=== PATIENT | male | born 1970 | race Caucasian/White ===

== ENCOUNTER 2016-09-25 08:44 | Inpatient (IN) | payer OTHER ==
[2016-09-25] VITALS (10 sets, daily range): BP systolic 116–169; BP diastolic 64–113; PULSE 75–97; RESP 16–28; TEMP 97.4–99.1; O2SAT 89–98
[~2016-09-25] VITALS: Ht 182.9 cm; Wt 178.0 kg
[~2016-09-25 08:44] MED LIST: CLIN1CAP5 PO; IBUP600T26 PO
[2016-09-25] MEDS ORDERED: SODIUM CHLORIDE 0.9% FLUSH 10 ML FLUSH IVF PRN (09:15)
[2016-09-25] MEDS ORDERED: methylPREDNISolone SOD SUCC 125 MG/2 ML VIAL IVP ONE (09:15)
[2016-09-25] MEDS ORDERED: SODIUM CHLOR 0.9% 1000 ML INJ 1,000 ML IV ONE ×3 (09:15→10:15)
[2016-09-25] MEDS: RESP: ALBUTEROL 2.5 MG/IPRATROPIUM 0.5 MG NEB (SCH) INH ×3 (09:30→21:52)
[2016-09-25 09:32] LABS: AUTOMATED NEUTROPHIL # 9.4 TH/MM3 (1.8-7.7); BASOPHIL % 0.4 % (0.0-2.0); EOSINOPHIL # 0.1 TH/MM3 (0-0.4); EOSINOPHIL % 0.5 % (0.0-4.0); HEMATOCRIT 37.1 % (39.0-51.0); HEMO FLAGS DIFF FINAL; LYMPH % 5.1 % (9.0-44.0); LYMPHOCYTE # 0.5 TH/MM3 (1.0-4.8); MEAN CELL VOLUME 82.7 FL (80.0-100.0); MEAN CORPUSCULAR HEMOGLOBIN 28.5 PG (27.0-34.0); MEAN CORPUSCULAR HGB CONC 34.5 % (32.0-36.0); MONO % 4.7 % (0.0-8.0); NEUT % 89.3 % (16.0-70.0); PLATELET COUNT 236 TH/MM3 (150-450); RED BLOOD COUNT 4.48 MIL/MM3 (4.50-5.90); RED CELL DISTRIBUTION WIDTH 13.9 % (11.6-17.2); WHITE BLOOD COUNT 10.6 TH/MM3 (4.0-11.0)
--- NOTE | 2016-09-25 09:42 | PD ---
HPI Chief Complaint: Respiratory Symptoms Time Seen by Provider: 09:09 Travel History International Travel<30 days: No Contact w/Intl Traveler<30days: No Traveled to known affect area: No History of Present Illness HPI Patient is a 45-year-old with history of hypertension, who presents to emergency room with multiple complaints. 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 Patient reports that he was brought home where his mother cared for him. Patient reports that he has had decreased urine output in the past week. Reports that he has only urinated 5 times in the past week, reports that he feels jittery and is having increased muscle spasms at this time. Patient also reports that yesterday, he has had increased cough and wheezing. Patient denies any fevers or chills. Reports that he does feel short of breath with his cough and wheezing. No chest pain at this time. Patient is a three fourths packs per day smoker 20 years. PFSH Past Medical History Cardiovascular Problems: Yes (HTN ) Diminished Hearing: No Gout: Yes Hypertension: Yes Immunizations Current: No Social History Alcohol Use: No Tobacco Use: Yes Substance Use: No Allergies-Medications (Allergen,Severity, Reaction): Coded Allergies: No Known Allergies (Unverified , 10/09/15) Reported Meds & Prescriptions Reported Meds & Active Scripts Active Ibuprofen 600 Mg Tab 600 Mg PO Q8H PRN 5 Days Clindamycin Hcl (Clindamycin HCl) 150 Mg Cap 450 Mg PO Q8HR 10 Days Review of Systems General / Constitutional: No: Fever Eyes: No: Visual changes HENT: No: Headaches Cardiovascular: No: Chest Pain or Discomfort Respiratory: Positive: Cough, Shortness of Breath, Wheezing Gastrointestinal: No: Abdominal Pain Genitourinary: No: Dysuria Musculoskeletal: Positive: Myalgias, Weakness, Cramping, No: Pain Skin: No Rash Neurologic: No: Weakness Psychiatric: No: Depression Endocrine: No: Polydipsia Hematologic/Lymphatic: No: Easy Bruising Physical Exam Narrative GENERAL: Moderate distress SKIN: Focused skin assessment warm/dry. Patient with excoriations to his skin with no obvious drainage or signs of infection HEAD: Atraumatic. Normocephalic. EYES: Pupils equal and round. No scleral icterus. No injection or drainage. ENT: No nasal bleeding or discharge. Mucous membranes pink and moist. NECK: Trachea midline. No JVD. CARDIOVASCULAR: Regular rate and rhythm. No murmur appreciated. RESPIRATORY: Patient with scattered wheezing to upper and lower lobes of the lungs, patient with accessory muscle use with work of breathing. GASTROINTESTINAL: Abdomen soft, non-tender, nondistended. Hepatic and splenic margins not palpable. MUSCULOSKELETAL: No obvious deformities. No clubbing. No cyanosis. No edema. NEUROLOGICAL: Awake and alert. No obvious cranial nerve deficits. Motor grossly within normal limits. Normal speech. PSYCHIATRIC: Appropriate mood and affect; insight and judgment normal. Data Data Last Documented VS Vital Signs Date Time Temp Pulse Resp B/P Pulse Ox O2 Delivery O2 Flow Rate FiO2 09/25/16 10:16 75 16 135/75 92 Nasal Cannula 2 09/25/16 08:47 97.4 Orders Electrocardiogram (09/25/16 09:14) Arterial Blood Gas (Abg) (09/25/16 09:14) Complete Blood Count With Diff (09/25/16 09:14) Comprehensive Metabolic Panel (09/25/16 09:14) Chest, Single Ap (09/25/16 09:14) Ecg Monitoring (09/25/16 09:14) Iv Access Insert/Monitor (09/25/16 09:14) Oximetry (09/25/16 09:14) Methylprednisolone So Succ Inj (Solumedr (09/25/16 09:15) Albuterol-Ipratropium Neb (Duoneb Neb) (09/25/16 09:15) Sodium Chloride 0.9% Flush (Ns Flush) (09/25/16 09:15) Creatine Kinase (Cpk) (09/25/16 09:14) Sodium Chlor 0.9% 1000 Ml Inj (Ns 1000 M (09/25/16 09:15) Lactic Acid Sepsis Protocol (09/25/16 09:52) Blood Culture (09/25/16 09:52) Sodium Chlor 0.9% 1000 Ml Inj (Ns 1000 M (09/25/16 10:00) Sodium Chlor 0.9% 1000 Ml Inj (Ns 1000 M (09/25/16 10:15) Urinary Catheter Insert/Apply (09/25/16 10:08) CKMB (09/25/16 09:20) CKMB% (09/25/16 09:20) Urinalysis - C+S If Indicated (09/25/16 10:30) Sodium (Na) (09/25/16 10:40) Calcium Gluconate Inj (Calcium Gluconate (09/25/16 10:45) Insulin Human Regular Inj (Novolin R Inj (09/25/16 11:00) Dextrose 50% In William (Vial) Inj (D50w (Vi (09/25/16 10:45) Sodium Polysty Sulfate Liq (Kayexalate L (09/25/16 10:45) Magnesium (Mg) (09/25/16 10:45) Ct Abd/Pel W/O Iv Contrast (09/25/16 10:47) Labs Laboratory Tests Test 09/25/16 09/25/16 09/25/16 09:20 09:41 09:50 White Blood Count 10.6 TH/MM3 Red Blood Count 4.48 MIL/MM3 Hemoglobin 12.8 GM/DL Hematocrit 37.1 % Mean Corpuscular Volume 82.7 FL Mean Corpuscular Hemoglobin 28.5 PG Mean Corpuscular Hemoglobin 34.5 % Concent Red Cell Distribution Width 13.9 % Platelet Count 236 TH/MM3 Mean Platelet Volume 9.6 FL Neutrophils (%) (Auto) 89.3 % Lymphocytes (%) (Auto) 5.1 % Monocytes (%) (Auto) 4.7 % Eosinophils (%) (Auto) 0.5 % Basophils (%) (Auto) 0.4 % Neutrophils # (Auto) 9.4 TH/MM3 Lymphocytes # (Auto) 0.5 TH/MM3 Monocytes # (Auto) 0.5 TH/MM3 Eosinophils # (Auto) 0.1 TH/MM3 Basophils # (Auto) 0.0 TH/MM3 CBC Comment DIFF FINAL Differential Comment Sodium Level 115 MEQ/L Potassium Level 6.5 MEQ/L Chloride Level 80 MEQ/L Carbon Dioxide Level 14.7 MEQ/L Anion Gap 20 MEQ/L Blood Urea Nitrogen 167 MG/DL Creatinine 18.42 MG/DL Estimat Glomerular Filtration 3 ML/MIN Rate Random Glucose 110 MG/DL Calcium Level 6.0 MG/DL Protein Corrected Calcium 6.2 MG/DL Total Bilirubin 0.4 MG/DL Aspartate Amino Transf 140 U/L (AST/SGOT) Alanine Aminotransferase 202 U/L (ALT/SGPT) Alkaline Phosphatase 177 U/L Total Creatine Kinase 63982 U/L Creatine Kinase MB 31.6 NG/ML Creatine Kinase MB % 0.2 % Total Protein 6.7 GM/DL Albumin 2.6 GM/DL Blood Gas Puncture Site LT RADIAL Blood Gas Patient Temperature 98.6 Blood Gas HCO3 13 mmol/L Blood Gas Base Excess -14.3 mmol/L Blood Gas Oxygen Saturation 91 % Arterial Blood pH 7.15 Arterial Blood Partial 38 mmHg Pressure CO2 Arterial Blood Partial 81 mmHG Pressure O2 Arterial Blood Oxygen Content 16.1 Vol % Arterial Blood 2.3 % Carboxyhemoglobin Arterial Blood Methemoglobin 0.8 % Blood Gas Hemoglobin 12.6 G/DL Oxygen Delivery Device ROOM AIR Blood Gas Inspired Oxygen 21 % Lactic Acid Level 0.5 mmol/L MDM Medical Decision Making Medical Screen Exam Complete: Yes Emergency Medical Condition: Yes Interpretation(s) EKG at 930: Normal sinus rhythm at 78 bpm, QT/QTc: 411/444, no acute changes Vital Signs Date Time Temp Pulse Resp B/P Pulse Ox O2 Delivery O2 Flow Rate FiO2 09/25/16 09:08 90 Nasal Cannula 2 09/25/16 08:47 97.4 84 28 169/76 Room Air Differential Diagnosis Symptoms could be secondary to COPD exacerbation, rhabdomyolysis, pneumonia, electrolyte abnormality, viral infection Narrative Course 45-year-old male with multiple complaints, presents to emergency room with decreased urine output, cough, wheezing and shortness of breath. Patient was placed on a compliance monitor upon arrival to the emergency room. Patient with significant wheezing on exam, he is hypoxic and with a pulse ox of 90% on 2 L nasal cannula. Nebulizer treatments as well as steroids ordered. X- ray chest ordered to evaluate for possible pneumonia versus other lung pathology which can cause intense shortness of breath. Patient with increased "jitteriness" and "muscle spasms" - reports recent heat stroke 1 week ago with overall decreased urine output. Concerns for possible rhabdomyolysis versus electrolyte abnormality. Lab work including total CK ordered. Patient will be hydrated with IV fluids in the meantime. Vital Signs Date Time Temp Pulse Resp B/P Pulse Ox O2 Delivery O2 Flow Rate FiO2 09/25/16 10:16 75 16 135/75 92 Nasal Cannula 2 09/25/16 09:30 89 Room Air 09/25/16 09:08 90 Nasal Cannula 2 09/25/16 08:47 97.4 84 28 169/76 Room Air Laboratory Tests Test 09/25/16 09/25/16 09/25/16 09:20 09:41 09:50 White Blood Count 10.6 TH/MM3 (4.0-11.0) Red Blood Count 4.48 MIL/MM3 (4.50-5.90) Hemoglobin 12.8 GM/DL (13.0-17.0) Hematocrit 37.1 % (39.0-51.0) Mean Corpuscular Volume 82.7 FL (80.0-100.0) Mean Corpuscular Hemoglobin 28.5 PG (27.0-34.0) Mean Corpuscular Hemoglobin 34.5 % Concent (32.0-36.0) Red Cell Distribution Width 13.9 % (11.6-17.2) Platelet Count 236 TH/MM3 (150-450) Mean Platelet Volume 9.6 FL (7.0-11.0) Neutrophils (%) (Auto) 89.3 % (16.0-70.0) Lymphocytes (%) (Auto) 5.1 % (9.0-44.0) Monocytes (%) (Auto) 4.7 % (0.0-8.0) Eosinophils (%) (Auto) 0.5 % (0.0-4.0) Basophils (%) (Auto) 0.4 % (0.0-2.0) Neutrophils # (Auto) 9.4 TH/MM3 (1.8-7.7) Lymphocytes # (Auto) 0.5 TH/MM3 (1.0-4.8) Monocytes # (Auto) 0.5 TH/MM3 (0-0.9) Eosinophils # (Auto) 0.1 TH/MM3 (0-0.4) Basophils # (Auto) 0.0 TH/MM3 (0-0.2) CBC Comment DIFF FINAL Differential Comment Sodium Level 115 MEQ/L (136-145) Potassium Level 6.5 MEQ/L (3.5-5.1) Chloride Level 80 MEQ/L (98-107) Carbon Dioxide Level 14.7 MEQ/L (21.0-32.0) Anion Gap 20 MEQ/L (5-15) Blood Urea Nitrogen 167 MG/DL (7-18) Creatinine 18.42 MG/DL (0.60-1.30) Estimat Glomerular Filtration 3 ML/MIN (>89) Rate Random Glucose 110 MG/DL (74-106) Calcium Level 6.0 MG/DL (8.5-10.1) Protein Corrected Calcium 6.2 MG/DL (8.5-10.1) Total Bilirubin 0.4 MG/DL (0.2-1.0) Aspartate Amino Transf 140 U/L (15-37) (AST/SGOT) Alanine Aminotransferase 202 U/L (12-78) (ALT/SGPT) Alkaline Phosphatase 177 U/L (45-117) Total Creatine Kinase 86823 U/L (39-308) Creatine Kinase MB 31.6 NG/ML (0.5-3.6) Creatine Kinase MB % 0.2 % (0.0-4.0) Total Protein 6.7 GM/DL (6.4-8.2) Albumin 2.6 GM/DL (3.4-5.0) Blood Gas Puncture Site LT RADIAL Blood Gas Patient Temperature 98.6 Blood Gas HCO3 13 mmol/L (22-26) Blood Gas Base Excess -14.3 mmol/L (-2-2) Blood Gas Oxygen Saturation 91 % (90-100) Arterial Blood pH 7.15 (7.380-7.420) Arterial Blood Partial 38 mmHg (38-42) Pressure CO2 Arterial Blood Partial 81 mmHG Pressure O2 (61-120) Arterial Blood Oxygen Content 16.1 Vol % (12.0-20.0) Arterial Blood 2.3 % (0-4) Carboxyhemoglobin Arterial Blood Methemoglobin 0.8 % (0-2) Blood Gas Hemoglobin 12.6 G/DL (12.0-16.0) Oxygen Delivery Device ROOM AIR Blood Gas Inspired Oxygen 21 % Lactic Acid Level 0.5 mmol/L (0.4-2.0) Last Impressions Chest X-Ray 09/25/16 0914 Signed Impressions: Service Date/Time: Sunday, September 25, 2016 09:58 - CONCLUSION: No acute cardiopulmonary abnormality is identified. Boyd Love MD Patient with a sodium 115, BUN 167, creatinine 18.42, CK total 13,795, tranaminitis, hyperkalemia. FC ordered to measure UO. Patient was given 3 liters NS in ER. Will recheck sodium. Ct abd pelvis ordered for further evaluation of transaminitis as well as for evaluation for possible obstruction causing renal failure. Patient requires admission to the hospital Case reviewed with Dr. Spears who accepts pt to service Critical Care Narrative Aggregate critical care time was 45 minutes. Time to perform other separately billable procedures was not included in the critical care time. My time did not include minutes spent treating any other patients simultaneously or on activities that did not directly contribute to the patient's treatment. The services I provided to this patient were to treat and/or prevent clinically significant deterioration that could result in: , decompensation, deterioration I provided critical care services requiring my management, as noted below: Chart data review, documentation time, medication orders and management, vital sign assessments/reviewing monitor data, ordering and reviewing lab tests, ordering and interpreting/reviewing x-rays and diagnostic studies, care of the patient and discussion of the patient with the admitting physicians. Physician Communication Physician Communication case reviewed with Dr. Spears who accepts pt to service Diagnosis Primary Impression: Hyponatremia Additional Impressions: Renal failure Qualified Code: N17.9 - Acute renal failure, unspecified acute renal failure type Rhabdomyolysis Qualified Code: M62.82 - Non-traumatic rhabdomyolysis Hyperkalemia Hypocalcemia COPD exacerbation Admitting Information Admitting Physician Requests: Admit Myranda Lin DO Sep 25, 2016 09:42
[2016-09-25 09:51] LABS: BLOOD GAS BASE EXCESS -14.3 mmol/L (-2-2); BLOOD GAS CARBOXYHEMOGLOBIN 2.3 % (0-4); BLOOD GAS HCO3 13 mmol/L (22-26); BLOOD GAS METHEMOGLOBIN 0.8 % (0-2); BLOOD GAS O2 HGB SATURATION 91 % (90-100); BLOOD GAS OXYGEN CONTENT 16.1 Vol % (12.0-20.0); BLOOD GAS PCO2 38 mmHg (38-42); BLOOD GAS PO2 81 mmHG (61-120); BLOOD GAS TOTAL HGB 12.6 G/DL (12.0-16.0); CRITICAL VALUE YES; TEMP CORR TO 98.6
[2016-09-25 09:52] LABS: DRAW SITE LT RADIAL; FIO2 21 %; NUMBER OF ARTERIAL PUNCTURES 2; OXYGEN DEVICE ROOM AIR; STAT YES
[2016-09-25 09:57] LABS: BICARBONATE 14.7 MEQ/L (21.0-32.0); POTASSIUM 6.5 MEQ/L (3.5-5.1)
[2016-09-25 10:10] LABS: TOTAL BILIRUBIN ADULT 0.4 MG/DL (0.2-1.0)
[2016-09-25 10:15] LABS: CALCIUM-PROTEIN CORRECTED 6.2 MG/DL (8.5-10.1)
[2016-09-25 10:32] LABS: CKMB 31.6 NG/ML (0.5-3.6)
--- NOTE | 2016-09-25 10:32 | RADRPT ---
EXAM DATE/TIME: 09/25/2016 09:58 [facility] COMPARISON: No previous studies available for comparison. INDICATIONS : Very short of breath, wheezing, smoker, no chest surgery MEDICAL HISTORY : None. SURGICAL HISTORY : None. ENCOUNTER: Initial ACUITY: 1 day PAIN SCORE: Non-responsive. LOCATION: Bilateral chest FINDINGS: 2 portable AP views of the chest demonstrate a normal-sized cardiac silhouette. No effusion, consolid ation, or pneumothorax is visualized. Lungs are mildly underinflated. EKG lines overlie the patient. The bones and soft tissues demonstrate no acute abnormality. CONCLUSION: No acute cardiopulmonary abnormality is identified. Boyd Love MD on September 25, 2016 at 10:29 Board Certified Radiologist. This report was verified electronically.
[2016-09-25] MEDS ORDERED: DEXTROSE 50% IN WATER 50 ML VIAL(D50) IV PUSH ONE (10:45)
[2016-09-25] MEDS ORDERED: SODIUM POLYSTYRENE SULFONATE SUSP 15 GM/60 ML CUP PO ONE (10:45)
[2016-09-25] MEDS ORDERED: CALCIUM GLUCONATE 10% 1 GM/10 ML VIAL SLOW IVP ONE (10:45)
[2016-09-25] MEDS ORDERED: INSULIN HUMAN REGULAR 1,000 UNITS/10 ML VIAL IV PUSH ONE (11:00)
[2016-09-25 11:12] LABS: BACTERIA, URINE RARE /hpf; BLOOD, URINE MOD (NEG); COMMENT (UR) CATH-CULTURE IND; CULTURE IF INDICATED CATH CULTURE IND; GLUCOSE,URINE TRACE mg/dL (NEG); KETONE, URINE NEG (NEG); NITRITE,URINE NEG (NEG); URINE COLOR YELLOW (YELLW/STRAW)
[2016-09-25] MEDS ORDERED: BISACODYL 10 MG SUPP RECTAL PRN (11:15)
[2016-09-25] MEDS ORDERED: ONDANSETRON HCL 4 MG/2 ML VIAL IV PRN ×2 (11:15→15:15)
[2016-09-25] MEDS ORDERED: CHLORHEXIDINE GLUCONATE 2 % 1 PACK (2 CLOTHS) TOP PRN (11:15)
[2016-09-25] MEDS ORDERED: MISCELLANEOUS NURSING INFORMATION XX SCH (11:15)
[2016-09-25] MEDS ORDERED: MAGNESIUM HYDROXIDE SUSP 30 ML CUP PO PRN (11:15)
[2016-09-25] MEDS ORDERED: SENNOSIDES 8.6 MG TAB PO PRN (11:15)
[2016-09-25] MEDS ORDERED: LACTULOSE SYRUP 20 GM/30 ML CUP PO PRN (11:15)
[2016-09-25] MEDS ORDERED: DEXTROSE 50% IN WATER 50 ML VIAL(D50) IV PRN ×2 (11:30→16:00)
[2016-09-25] MEDS ORDERED: GLUCAGON 1 MG/ML VIAL OTHER PRN ×2 (11:30→16:00)
[2016-09-25] MEDS: SODIUM BICARBONATE 8.4% INJ 150 MEQ in DEXTROSE 5% IN WATE 1000ML INJ 850 ML IV SCH ×4 (12:00→19:21)
[2016-09-25] MEDS: RESP: ALBUTEROL 2.5 MG/IPRATROPIUM 0.5 MG NEB (PRN) INH ×2 (12:49→13:58)
[2016-09-25] MEDS ORDERED: HYDR-3535 PO (13:21)
[2016-09-25] MEDS ORDERED: SOMA350T PO (13:21)
[2016-09-25 13:38] LABS: BICARBONATE 14.5 MEQ/L (21.0-32.0)
[2016-09-25 14:08] LABS: POTASSIUM 6.6 MEQ/L (3.5-5.1)
[2016-09-25] MEDS ORDERED: CALCIUM CHLORIDE 10% SOLN 1 GRAM/10 ML SYR ONE ×2 (14:15→14:19)
[2016-09-25] MEDS ORDERED: DEXTROSE 50% IN WATER 50 ML SYRINGE ONE (14:15)
[2016-09-25] MEDS ORDERED: SODIUM BICARBONATE 8.4% INJ 50 MEQ/50 ML SYR ONE ×3 (14:17→16:00)
[2016-09-25 14:28] LABS: BLOOD GAS CARBOXYHEMOGLOBIN 1.6 % (0-4); BLOOD GAS HCO3 11 mmol/L (22-26); BLOOD GAS METHEMOGLOBIN 1.5 % (0-2); BLOOD GAS O2 HGB SATURATION 92 % (90-100); BLOOD GAS OXYGEN CONTENT 16.1 Vol % (12.0-20.0); BLOOD GAS PCO2 37 mmHg (38-42); BLOOD GAS PO2 94 mmHg (61-120); BLOOD GAS TOTAL HGB 12.4 G/DL (12.0-16.0); CRITICAL VALUE YES; OXYGEN DEVICE NASAL CANNULA; TEMP CORR TO 98.6
[2016-09-25 14:29] LABS: DRAW SITE LT RADIAL; LITER FLOW 4 L/M; NUMBER OF ARTERIAL PUNCTURES 2; STAT YES; ULNAR PULSE PRESENT
[2016-09-25 14:33] LABS: CALCIUM-PROTEIN CORRECTED 6.3 MG/DL (8.5-10.1)
--- NOTE | 2016-09-25 14:50 | PD.CONS ---
HPI Service Nephrology Consult Requested By Dr. Spears Reason for Consult Acute renal failure and metabolic acidosis and hyperkalemia I was notified around 1425 while making rounds in ICU by Dr. 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 Review of Systems Constitutional: COMPLAINS OF: Fatigue Respiratory: COMPLAINS OF: Wheezing Cardiovascular: COMPLAINS OF: Lower Extremity Edema Genitourinary: COMPLAINS OF: Urinary frequency Musculoskeletal: COMPLAINS OF: Joint pain Integumentary: COMPLAINS OF: Pruritus, Rash Neurologic: COMPLAINS OF: Abnormal gait, Tremor Psychiatric: COMPLAINS OF: Anxiety, Confusion Past Family Social History Allergies: Coded Allergies: No Known Allergies (Unverified , 10/09/15) Past Medical History Serial obesity Gout Hypertension history of marijuana use Reported Medications Reported Meds & Active Scripts Active Reported Soma (Carisoprodol) 350 Mg Tab 350 Mg PO HS Lortab (Hydrocodone-Acetaminophen) 10-325 Mg Tab 1 Tab PO BID Active Ordered Medications Current Medications Medications (Trade) Dose Ordered Sig/Harjinder Route Start Time Stop Time Status Last Admin Sodium Chloride 2 ml 2 ml UNSCH PRN IVF 09/25/16 09:15 Sodium Bicarbonate 150 meq/Dextrose 1,000 ml @ 75 mls/hr [id number] IV 09/25/16 10:45 09/25/16 12:00 (1/2 NS 1000 ml Inj) 1,000 ml @ 150 mls/hr [id number] IV 09/25/16 10:45 (Tylenol) 650 mg Q6H PRN PO 09/25/16 11:15 (Protonix Inj) 40 mg DAILY IV 09/26/16 09:00 (Zofran Inj) 4 mg Q6H PRN IV 09/25/16 11:15 (Heparin Inj) 5,000 units Q12H SQ 09/25/16 12:00 Miscellaneous Information 1 [id number] XX 09/25/16 11:15 (Chlorhexidine 2% Cloth) 3 pack Taper DAILY@04 TOP 09/26/16 04:00 09/22/17 03:59 (Chlorhexidine 2% Cloth) 3 pack UNSCH PRN TOP 09/25/16 11:15 (Linda-Colace) 1 tab BID PO 09/25/16 21:00 (Milk Of Magnesia Liq) 30 ml Q12H PRN PO 09/25/16 11:15 (Senokot) 17.2 mg Q12H PRN PO 09/25/16 11:15 (Dulcolax Supp) 10 mg DAILY PRN RECTAL 09/25/16 11:15 (Lactulose Liq) 30 ml DAILY PRN PO 09/25/16 11:15 (D50w (Vial) Inj) 50 ml UNSCH PRN IV 09/25/16 11:30 (Glucagon Inj) 1 mg UNSCH PRN OTHER 09/25/16 11:30 Family History Noncontributory Social History He smoke three fourths of a pack a day for more than 20 years denies alcohol abuse Use recreational drugs marijuana Physical Exam Vital Signs Vital Signs Date Time Temp Pulse Resp B/P Pulse Ox O2 Delivery O2 Flow Rate FiO2 09/25/16 12:50 Nasal Cannula 3.00 09/25/16 12:09 90 20 154/64 98 Nasal Cannula 2 09/25/16 10:16 75 16 135/75 92 Nasal Cannula 2 09/25/16 09:30 89 Room Air 09/25/16 09:08 90 Nasal Cannula 2 09/25/16 08:47 97.4 84 28 169/76 Room Air Physical Exam GENERAL: Well-nourished, well-developed patient. SKIN: Warm and dry. HEAD: Normocephalic. EYES: No scleral icterus. No injection or drainage. NECK: Supple, trachea midline. No JVD or lymphadenopathy. CARDIOVASCULAR: Regular rate and rhythm without murmurs, gallops, or rubs. RESPIRATORY: Breath sounds diminished at bases with wheezing GASTROINTESTINAL: Abdomen soft, non-tender, distended. EXTREMITIES: No cyanosis, 1+ edema. NEUROLOGICAL: Awake, alert, and oriented he has jittery Movements Laboratory Laboratory Tests Test 09/25/16 09/25/16 09/25/16 09/25/16 09:20 09:41 09:50 10:50 White Blood Count 10.6 Red Blood Count 4.48 Hemoglobin 12.8 Hematocrit 37.1 Mean Corpuscular Volume 82.7 Mean Corpuscular Hemoglobin 28.5 Mean Corpuscular Hemoglobin 34.5 Concent Red Cell Distribution Width 13.9 Platelet Count 236 Mean Platelet Volume 9.6 Neutrophils (%) (Auto) 89.3 Lymphocytes (%) (Auto) 5.1 Monocytes (%) (Auto) 4.7 Eosinophils (%) (Auto) 0.5 Basophils (%) (Auto) 0.4 Neutrophils # (Auto) 9.4 Lymphocytes # (Auto) 0.5 Monocytes # (Auto) 0.5 Eosinophils # (Auto) 0.1 Basophils # (Auto) 0.0 CBC Comment DIFF FINAL Differential Comment Sodium Level 115 Potassium Level 6.5 Chloride Level 80 Carbon Dioxide Level 14.7 Anion Gap 20 Blood Urea Nitrogen 167 Creatinine 18.42 Estimat Glomerular Filtration 3 Rate Random Glucose 110 Calcium Level 6.0 Protein Corrected Calcium 6.2 Magnesium Level 2.6 Total Bilirubin 0.4 Aspartate Amino Transf 140 (AST/SGOT) Alanine Aminotransferase 202 (ALT/SGPT) Alkaline Phosphatase 177 Total Creatine Kinase 04687 Creatine Kinase MB 31.6 Creatine Kinase MB % 0.2 Total Protein 6.7 Albumin 2.6 Blood Gas Puncture Site LT RADIAL Blood Gas Patient Temperature 98.6 Blood Gas HCO3 13 Blood Gas Base Excess -14.3 Blood Gas Oxygen Saturation 91 Arterial Blood pH 7.15 Arterial Blood Partial 38 Pressure CO2 Arterial Blood Partial 81 Pressure O2 Arterial Blood Oxygen Content 16.1 Arterial Blood 2.3 Carboxyhemoglobin Arterial Blood Methemoglobin 0.8 Blood Gas Hemoglobin 12.6 Oxygen Delivery Device ROOM AIR Blood Gas Inspired Oxygen 21 Lactic Acid Level 0.5 Urine Color YELLOW Urine Turbidity CLEAR Urine pH 5.0 Urine Specific [place] 1.013 Urine Protein 30 Urine Glucose (UA) TRACE Urine Ketones NEG Urine Occult Blood MOD Urine Nitrite NEG Urine Bilirubin NEG Urine Urobilinogen LESS THAN 2.0 Urine Leukocyte Esterase NEG Urine RBC LESS THAN 1 Urine WBC 2 Urine Bacteria RARE Microscopic Urinalysis Comment CATH-CULTURE IND Test 09/25/16 09/25/16 12:45 14:12 Sodium Level 119 Potassium Level 6.6 Chloride Level 84 Carbon Dioxide Level 14.5 Anion Gap 21 Blood Urea Nitrogen 156 Creatinine 17.72 Estimat Glomerular Filtration 3 Rate Random Glucose 91 Calcium Level 6.1 Protein Corrected Calcium 6.3 Total Protein 6.6 Blood Gas Puncture Site LT RADIAL Blood Gas Patient Temperature 98.6 Blood Gas HCO3 11 Blood Gas Base Excess -17.0 Blood Gas Oxygen Saturation 92 Arterial Blood pH 7.09 Arterial Blood Partial 37 Pressure CO2 Arterial Blood Partial 94 Pressure O2 Arterial Blood Oxygen Content 16.1 Arterial Blood 1.6 Carboxyhemoglobin Arterial Blood Methemoglobin 1.5 Blood Gas Hemoglobin 12.4 Oxygen Delivery Device NASAL CANNULA Blood Gas Liter Flow 4 Date/Time Procedure Status Source Growth 09/25/16 10:50 Urine Culture Received Urine Catheterized Urine Pending 09/25/16 10:15 Aerobic Blood Culture Received Blood Peripheral Pending 09/25/16 10:15 Anaerobic Blood Culture Received Blood Peripheral Pending Result Diagram: 09/25/1620 09/25/16 1245 Imaging Last Impressions Chest X-Ray 09/25/16 0914 Signed Impressions: Service Date/Time: Sunday, September 25, 2016 09:58 - CONCLUSION: No acute cardiopulmonary abnormality is identified. Boyd Love MD Assessment and Plan Problem List: (1) Renal failure Plan: Patient has acute tubular necrosis due to rhabdomyolysis He is really acidotic with electrolyte imbalance, I discuss with patient and Dr. Spears that dialysis will be helpful, he will get a port placement and we will then do the dialysis try to correct metabolic acidosis and electrolyte imbalance Continue to monitor 1758 seen during dialysis tolerating it UF 2 L (2) Rhabdomyolysis Plan: Due to severe dehydration (3) Hyperkalemia Plan: Due to the acute renal failure (4) Hyponatremia Plan: Due to renal failure (5) Hypocalcemia Plan: He received calcium chloride (6) COPD exacerbation Plan: Monitor (7) Acidosis, metabolic Plan: Acute renal failure pH is 7.09 Problem Qualifiers (1) Renal failure: Qualified Code: N17.9 - Acute renal failure, unspecified acute renal failure type (2) Rhabdomyolysis: Qualified Code: M62.82 - Non-traumatic rhabdomyolysis Axel Anderson MD Sep 25, 2016 14:50
[2016-09-25] MEDS ORDERED: SODIUM CHLOR 0.9% 1000 ML INJ 1,000 ML IV PRN ×2 (15:01)
[2016-09-25] MEDS ORDERED: SODIUM CHLORIDE 0.9% FLUSH 10 ML FLUSH IV FLUSH PRN (15:15)
[2016-09-25] MEDS ORDERED: NITROGLYCERIN 0.4 MG SL 25 TABS/BTL SL PRN (15:15)
[2016-09-25] MEDS ORDERED: cloNIDine HCL 0.1 MG TAB PO PRN (15:15)
[2016-09-25] MEDS ORDERED: ALBUMIN HUMAN 25% 25 GM/100 ML BAGP IV PRN (15:15)
[2016-09-25] MEDS ORDERED: HEPARIN SODIUM - IV 10,000 UNITS/10 ML VIAL IVF PRN (15:15)
[2016-09-25] MEDS ORDERED: ACETAMINOPHEN 325 MG TAB PO PRN (15:15)
[2016-09-25] MEDS ORDERED: GELATIN 12 MM/7 MM FOAM TOP PRN (15:15)
[2016-09-25] MEDS ORDERED: MANNITOL 12.5 GM/50 ML VIAL IV PRN (15:15)
[2016-09-25] MEDS ORDERED: diphenhydrAMINE HCL 25 MG CAP PO PRN (15:15)
[2016-09-25 15:24] LABS: AUTOMATED NEUTROPHIL # 12.8 TH/MM3 (1.8-7.7); BASOPHIL % 0.3 % (0.0-2.0); EOSINOPHIL % 0.1 % (0.0-4.0); HEMATOCRIT 35.4 % (39.0-51.0); LYMPH % 2.2 % (9.0-44.0); LYMPHOCYTE # 0.3 TH/MM3 (1.0-4.8); MEAN CELL VOLUME 83.5 FL (80.0-100.0); MEAN CORPUSCULAR HEMOGLOBIN 27.9 PG (27.0-34.0); MEAN CORPUSCULAR HGB CONC 33.4 % (32.0-36.0); MONO % 1.3 % (0.0-8.0); NEUT % 96.1 % (16.0-70.0); PLATELET COUNT 216 TH/MM3 (150-450); RED BLOOD COUNT 4.24 MIL/MM3 (4.50-5.90); RED CELL DISTRIBUTION WIDTH 14.3 % (11.6-17.2); WHITE BLOOD COUNT 13.3 TH/MM3 (4.0-11.0)
--- NOTE | 2016-09-25 15:27 | HHI.HP ---
HPI Service Critical Care Medicine Primary Care Physician No Primary Care Physician Admission Diagnosis hyponatremia, renal failure, rhabdomyolysis Diagnosis: Travel History International Travel<30 Days: No Contact w/Intl Traveler <30 Da: No Traveled to Known Affected Are: No History of Present Illness HPI This is a 45-year-old with history of hypertension, who presents to emergency room with multiple complaints. 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 Patient reports that he was brought home where his mother cared for him. Patient reports that he has had decreased urine output for the past week. Reports that he has minimal urine output and reports that he feels jittery and is having increased muscle spasms at this time. Patient also reports that yesterday, he has had increased cough and significant wheezing. Patient denies any fevers or chills. Reports that he does feel short of breath with his cough and wheezing. No chest pain at this time. Patient is a three fourths packs per day smoker 20 years. In the emergency department the patient was noted to be severely dehydrated with a BUN is 167, hyperkalemic potassium level 6.5 and hyponatremic with a sodium level of 115. Critical care medicine was consulted. Upon entering the ED, the patient was alert and oriented 3, with notable muscle spasms and involuntary twitching of extremities 4. Patient was noted to have arrhythmias, D50, insulin, Kayexalate, calcium gluconate was immediately instituted. The patient was receiving 3 L of normal saline bolus. History PFSH Past Medical History Cardiovascular Problems: Yes (HTN ) Diminished Hearing: No Gout: Yes Hypertension: Yes Immunizations Current: No Social History Alcohol Use: No Tobacco Use: Yes Substance Use: No Allergies-Medications Allergies-Medications (Allergen,Severity, Reaction): Coded Allergies: No Known Allergies (Unverified , 10/09/15) Reported Meds & Prescriptions Reported Meds & Active Scripts Active Ibuprofen 600 Mg Tab 600 Mg PO Q8H PRN 5 Days Clindamycin Hcl (Clindamycin HCl) 150 Mg Cap 450 Mg PO Q8HR 10 Days ROS Review of Systems General / Constitutional: No: Fever Eyes: No: Visual changes HENT: No: Headaches Cardiovascular: No: Chest Pain or Discomfort Respiratory: Positive: Cough, Shortness of Breath, Wheezing Gastrointestinal: No: Abdominal Pain Genitourinary: No: Dysuria Musculoskeletal: Positive: Myalgias, Weakness, Cramping, No: Pain Skin: No Rash Neurologic: No: Weakness Psychiatric: No: Depression Endocrine: No: Polydipsia Hematologic/Lymphatic: No: Easy Bruising Past Family Social History Allergies: Coded Allergies: No Known Allergies (Unverified , 10/09/15) Past Medical History Significant for hypertension, morbid obesity Past Surgical History None Reported Medications See MAR Active Ordered Medications See MAR Family History Reviewed with patient, unknown at this time. Patient unable to answer questions regarding history Social History Three-quarter pack a day smoker greater than 20 years, marijuana use, denies EtOH Physical Exam Vital Signs Last Impressions Chest X-Ray 09/25/16913 Signed Impressions: Service Date/Time: Sunday, September 25, 2016 09:58 - CONCLUSION: No acute cardiopulmonary abnormality is identified. Boyd Love MD Vital Signs Date Time Temp Pulse Resp B/P Pulse Ox O2 Delivery O2 Flow Rate FiO2 09/25/16 12:50 Nasal Cannula 3.00 09/25/16 12:09 90 20 154/64 98 Nasal Cannula 2 09/25/16 10:16 75 16 135/75 92 Nasal Cannula 2 09/25/16 09:30 89 Room Air 09/25/16 09:08 90 Nasal Cannula 2 09/25/16 08:47 97.4 84 28 169/76 Room Air Physical Exam GENERAL: Morbidly obese male, diaphoretic, muscle spasms, twitching of extremities 4 SKIN: Warm and dry. Multiple punctate lesions all over entire body HEAD: Atraumatic. Normocephalic. EYES: Pupils equal and round. No scleral icterus. No injection or drainage. ENT: No nasal bleeding or discharge. Mucous membranes dry NECK: Trachea midline. No JVD. Neck veins flat CARDIOVASCULAR: Normal rate, irregular rhythm. RESPIRATORY: No accessory muscle use. Audible wheezing. Breath sounds equal bilaterally. GASTROINTESTINAL: Abdomen soft, non-tender, nondistended. No guarding. MUSCULOSKELETAL: Extremities without clubbing, cyanosis, or edema. No obvious deformities. Multiple skin abrasions multiple punctate lesions on extremities 4 NEUROLOGICAL: Awake and alert. RASS 0. No gross focal/sensory deficits. Follows commands in all 4 extremities. Notable muscle spasms and involuntary twitching bilateral extremities, as well as truncal muscles Laboratory Laboratory Tests Test 609/25/16 09/25/16 09/25/16 09:20 09:41 09:50 10:50 White Blood Count 10.6 Red Blood Count 4.48 Hemoglobin 12.8 Hematocrit 37.1 Mean Corpuscular Volume 82.7 Mean Corpuscular Hemoglobin 28.5 Mean Corpuscular Hemoglobin 34.5 Concent Red Cell Distribution Width 13.9 Platelet Count 236 Mean Platelet Volume 9.6 Neutrophils (%) (Auto) 89.3 Lymphocytes (%) (Auto) 5.1 Monocytes (%) (Auto) 4.7 Eosinophils (%) (Auto) 0.5 Basophils (%) (Auto) 0.4 Neutrophils # (Auto) 9.4 Lymphocytes # (Auto) 0.5 Monocytes # (Auto) 0.5 Eosinophils # (Auto) 0.1 Basophils # (Auto) 0.0 CBC Comment DIFF FINAL Differential Comment Sodium Level 115 Potassium Level 6.5 Chloride Level 80 Carbon Dioxide Level 14.7 Anion Gap 20 Blood Urea Nitrogen 167 Creatinine 18.42 Estimat Glomerular Filtration 3 Rate Random Glucose 110 Calcium Level 6.0 Protein Corrected Calcium 6.2 Magnesium Level 2.6 Total Bilirubin 0.4 Aspartate Amino Transf 140 (AST/SGOT) Alanine Aminotransferase 202 (ALT/SGPT) Alkaline Phosphatase 177 Total Creatine Kinase 92073 Creatine Kinase MB 31.6 Creatine Kinase MB % 0.2 Total Protein 6.7 Albumin 2.6 Blood Gas Puncture Site LT RADIAL Blood Gas Patient Temperature 98.6 Blood Gas HCO3 13 Blood Gas Base Excess -14.3 Blood Gas Oxygen Saturation 91 Arterial Blood pH 7.15 Arterial Blood Partial 38 Pressure CO2 Arterial Blood Partial 81 Pressure O2 Arterial Blood Oxygen Content 16.1 Arterial Blood 2.3 Carboxyhemoglobin Arterial Blood Methemoglobin 0.8 Blood Gas Hemoglobin 12.6 Oxygen Delivery Device ROOM AIR Blood Gas Inspired Oxygen 21 Lactic Acid Level 0.5 Urine Color YELLOW Urine Turbidity CLEAR Urine pH 5.0 Urine Specific [place] 1.013 Urine Protein 30 Urine Glucose (UA) TRACE Urine Ketones NEG Urine Occult Blood MOD Urine Nitrite NEG Urine Bilirubin NEG Urine Urobilinogen LESS THAN 2.0 Urine Leukocyte Esterase NEG Urine RBC LESS THAN 1 Urine WBC 2 Urine Bacteria RARE Microscopic Urinalysis Comment CATH-CULTURE IND Test 09/25/16 09/25/16 12:45 14:12 Sodium Level 119 Potassium Level 6.6 Chloride Level 84 Carbon Dioxide Level 14.5 Anion Gap 21 Blood Urea Nitrogen 156 Creatinine 17.72 Estimat Glomerular Filtration 3 Rate Random Glucose 91 Calcium Level 6.1 Protein Corrected Calcium 6.3 Total Protein 6.6 Blood Gas Puncture Site LT RADIAL Blood Gas Patient Temperature 98.6 Blood Gas HCO3 11 Blood Gas Base Excess -17.0 Blood Gas Oxygen Saturation 92 Arterial Blood pH 7.09 Arterial Blood Partial 37 Pressure CO2 Arterial Blood Partial 94 Pressure O2 Arterial Blood Oxygen Content 16.1 Arterial Blood 1.6 Carboxyhemoglobin Arterial Blood Methemoglobin 1.5 Blood Gas Hemoglobin 12.4 Oxygen Delivery Device NASAL CANNULA Blood Gas Liter Flow 4 Date/Time Procedure Status Source Growth 09/25/16 10:50 Urine Culture Received Urine Catheterized Urine Pending 09/25/16 10:15 Aerobic Blood Culture Received Blood Peripheral Pending 09/25/16 10:15 Anaerobic Blood Culture Received Blood Peripheral Pending Result Diagram: 09/25/1691909/25/16 1245 Imaging Last Impressions Chest X-Ray 09/25/16 0914 Signed Impressions: Service Date/Time: Sunday, September 25, 2016 09:58 - CONCLUSION: No acute cardiopulmonary abnormality is identified. Boyd Love MD Course The patient continued to have hyperkalemia despite interventions to include sodium bicarbonate infusion. Plan for emergent dialysis today. Septic Shock Reassessment Heart: Irregular Lungs: Course Skin: Dry Peripheral Pulses: Bounding Right Radial Bounding Left Radial Capillary Refill: Brisk Assessment and Plan Assessment and Plan 1. Hyperkalemia 2. Rhabdomyolysis 3. Acute renal failure 4. Acute hyponatremia 5. Hypocalcemia 6. Severe dehydration 7. Acute respiratory distress 8. Metabolic acidosis 2/2 CONCEPCION 9. Hypertension Plan by systems: Neurologic: -Neurochecks per ICU protocol -Obtain EEG rule out seizure activity -Obtain U tox screen -Obtain CT [id number] results -Monitor for seizure activity Respiratory: -DuoNeb nebs every 6 hours scheduled -DuoNeb nebs every 2 hours when necessary -Obtain ABG -Maintain O2 sat greater than 92% -ABG-7.15/38/81/13/-14.3 on 2 LPM -Initiate sodium bicarbonate infusion Cardiovascular: -12-lead EKG -Telemetry -Hold antihypertensive medications at this time, will resume when clinically indicated Renal: -Place Gutierrez catheter -- Strict I/Os -Vas catheter placement-initiate hemodialysis -Nephrology consulted- Dr. Latiff FEN/GI: -Obtain serial sodium every 6 hours . Initial sodium level 115, current sodium level 119, monitor trend ,not to exceed 0.5 mEq per liter/ hour -Monitor BMP ,Obtain chemistry every 6 hours -NPO status -Patient bolused with 3 L of 0.9 normal saline -Continue aggressive IV hydration -Monitor creatinine kinase every 6 hours, CK level 13,795 Heme/ID: Obtain blood urine cultures follow-up results Endocrine: Glucose monitoring per ICU protocol -- SSI Prophylaxis: GI Prophylaxis Protonix DVT Prophylaxis -- SCDs Heparin twice a day Lines: Peripheral IVs 2. Central line if indicated Dispo:. This patient remains critically ill with one or more organ systems which are or may become a threat to life. I have spent in excess of 45 minutes discontinuously in the care and management of this patient. This time is exclusive of procedures, and includes, but is not limited to, evaluation of the patient, review of the medical record, discussions with family, consultants, nursing staff, or respiratory therapy, and documentation in the medical record. As patient remains critically ill with rhabdomyolysis, acute kidney failure, and severe metabolic derangements. Prognosis is guarded at this time Code Status Full Discussed Condition With Discussed with FOAM CUTTING SUPERVISOR at bedside, Dr. Lin ED physician, ED RN at bedside, patient's family member mother at bedside My Spears MD Sep 25, 2016 15:27
[2016-09-25 15:43] LABS: HEMO FLAGS AUTO DIFF
[2016-09-25] MEDS ORDERED: SODIUM BICARBONATE 8.4% SOLN 50 MEQ/50 ML VIAL IV ONE (15:58)
[2016-09-25] MEDS: INSULIN ASPART SUPPLEMENTAL SCALE SQ SCH ×2 (16:00→21:00)
[2016-09-25] MEDS ORDERED: INSULIN ASPART SUPPLEMENTAL SCALE SQ SCH (16:00)
[2016-09-25] MEDS ORDERED: SODIUM BICARBONATE 8.4% INJ 50 ML ONE (16:02)
--- NOTE | 2016-09-25 16:05 | MG ---
cc: ANDREW GIVENS M.D. Lab No: Date: 09/25/2016 Age: Sex: M Race: REQUESTING PHYSICIAN Dr. Spears. INTRODUCTION An EEG was obtained on this 45-year-old patient with a history of heat stroke and feeing jittery with intermittent spasms. MEDICATIONS 1. Insulin. 2. Solu-Medrol. DESCRIPTION The patient is described as awake during this study. The EEG shows a lot of 4-6 per second activity diffusely. There are beta rhythm and muscle artifact. Intermittent body jerking, feet or arm jerking is described and there is artifact. There are some delta rhythms bilaterally and there is a lack of alpha activity. Hyperventilation was not performed. Photic stimulation was unremarkable. INTERPRETATION Abnormal EEG because of continued slowing in a bilateral / generalized manner suggesting a moderately severe diffuse disturbance of cerebral function. No epileptiform features present. Along with body jerking movements, there is artifact and no epileptiform features. MD FRANCINE Durbin/DONNA /3:51 PM /4:00 PM
[2016-09-25 16:13] LABS: BICARBONATE 15.8 MEQ/L (21.0-32.0); TOTAL BILIRUBIN ADULT 0.3 MG/DL (0.2-1.0)
[2016-09-25 16:15] LABS: PLATELET ESTIMATE SMEAR NORMAL (NORMAL); PLATELET MORPHOLOGY ENLARGED (NORMAL); SCAN/DIFF AUTO DIFF CONFIRMED
[2016-09-25 16:16] LABS: CKMB 27.8 NG/ML (0.5-3.6)
[2016-09-25 16:20] LABS: CALCIUM-PROTEIN CORRECTED 6.3 MG/DL (8.5-10.1)
[2016-09-25] MEDS: methylPREDNISolone SOD SUCC 125 MG/2 ML VIAL IV PUSH SCH (16:32)
--- NOTE | 2016-09-25 16:33 | RADRPT ---
EXAM DATE/TIME: 09/25/2016 15:42 [facility] COMPARISON: No previous studies available for comparison. INDICATIONS : Increased BUN/creatinine. MEDICAL HISTORY : Hypertension. Confusion. Tremors. Gout. Gait problems. Anxiety. Pruritis. Tobacco use. SURGICAL HISTORY : None. ENCOUNTER: Initial ACUITY: 1 day PAIN SCORE: 04/11 LOCATION: Bilateral flank MEASUREMENTS: RIGHT KIDNEY: 13.6 x 7.6 x 8.0 cm LEFT KIDNEY: 13.4 x 6.7 x 8.2 cm FINDINGS: RIGHT KIDNEY: Renal cortex is normal in thickness and echotexture. No hydronephrosis, stone, or mass. LEFT KIDNEY: Renal cortex is normal in thickness and echotexture. No hydronephrosis, stone, or mass. BLADDER: Bladder is decompressed secondary to Gutierrez catheter. CONCLUSION: 1. Limited exam due to patient's body habitus. 2. No evidence for obstructive uropathy as questioned. Quinton Don MD on September 25, 2016 at 16:30 Board Certified Radiologist. This report was verified electronically.
[2016-09-25 16:49] LABS: AMPHETAMINE, URINE POS (NEG); BARBITURATES, URINE NEG (NEG); COCAINE, URINE NEG (NEG)
[2016-09-25] MEDS: HEPARIN SODIUM - IV 10,000 UNITS/10 ML VIAL PRN (18:48)
[2016-09-25] MEDS: GENTAMICIN SULFATE (DIALYSIS USE ONLY) 20 MG/2 ML VIAL IV PRN (18:49)
[2016-09-25] MEDS: DOCUSATE SODIUM 50 MG/SENNA 8.6 MG TAB PO SCH (21:00)
[2016-09-25 21:04] LABS: BICARBONATE 17.1 MEQ/L (21.0-32.0); POTASSIUM 5.4 MEQ/L (3.5-5.1); TOTAL BILIRUBIN ADULT 0.3 MG/DL (0.2-1.0)
[2016-09-25 21:26] LABS: CALCIUM-PROTEIN CORRECTED 6.8 MG/DL (8.5-10.1)
[2016-09-25] MEDS ORDERED: CALCIUM CHLORIDE INJ 2 GM in SODIUM CHLORIDE 0.9% INJ 100 ML IV ONE (22:00)
[2016-09-25] MEDS ORDERED: NITROGLYCERIN 2% OINT 1 GM PACKET TOPICAL PRN (23:45)
[2016-09-26] VITALS (14 sets, daily range): BP systolic 120–180; BP diastolic 72–86; PULSE 86–106; RESP 16–28; TEMP 97.5–98; O2SAT 93–99
[2016-09-26] MEDS: SODIUM CHLOR 0.45% 1000 ML INJ 1,000 ML IV SCH ×4 (00:05→19:58)
[2016-09-26] MEDS: hydrALAZINE HCL 20 MG/ML VIAL IV PRN ×2 (00:57→05:53)
[2016-09-26] MEDS: methylPREDNISolone SOD SUCC 125 MG/2 ML VIAL IV PUSH SCH ×3 (00:57→17:59)
[2016-09-26] MEDS: HEPARIN SODIUM - SQ 10,000 UNITS/ML VIAL SQ SCH ×2 (00:57→14:55)
[2016-09-26 01:54] LABS: CREATINE KINASE 10822 U/L (39-308)
[2016-09-26 03:11] LABS: CALCIUM-PROTEIN CORRECTED 7.1 MG/DL (8.5-10.1)
--- NOTE | 2016-09-26 03:26 | RADRPT ---
EXAM DATE/TIME: 09/26/2016 02:23 [facility] COMPARISON: No previous studies available for comparison. INDICATIONS : No adequate urine output in 1 week. ORAL CONTRAST: No oral contrast ingested. RADIATION DOSE: 47.51 CTDIvol (mGy) MEDICAL HISTORY : Cardiovascular disease. Hypertension. Gout. SURGICAL HISTORY : None. ENCOUNTER: Initial ACUITY: 1 week PAIN SCALE: 6/10 LOCATION: abdomen TECHNIQUE: Volumetric scanning of the abdomen and pelvis was performed. Using automated exposure control and ad justment of the mA and/or kV according to patient size, radiation dose was kept as low as reasonably achievable to obtain optimal diagnostic quality images. DICOM format image data is available electro nically for review and comparison. FINDINGS: LOWER LUNGS: Subsegmental infiltrate in the medial left lower lung. LIVER: Homogeneous density without lesion for noncontrast technique. There is no dilation of the biliary tr ee. No calcified gallstones. SPLEEN: Normal size without lesion. PANCREAS: Within normal limits. KIDNEYS: Normal in size and shape. There is no mass, stone, or hydronephrosis. ADRENAL GLANDS: Within normal limits. VASCULAR: There is no aortic aneurysm. BOWEL/MESENTERY: The stomach, small bowel, and colon demonstrate no acute abnormality. There is no free intraperitone al air or fluid. ABDOMINAL WALL: There is fluid density dispersed in the subcutaneous fat of the lateral abdominal wall bilaterally. No ventral hernia. RETROPERITONEUM: There is no lymphadenopathy. BLADDER: Nondistended. Gutierrez catheter. REPRODUCTIVE: Hysterectomy. No abnormal masses seen. INGUINAL: There is no lymphadenopathy or hernia. MUSCULOSKELETAL: Within normal limits for patient age. CONCLUSION: 1. No evidence of renal stone or hydronephrosis. 2. Fluid in the subcutaneous tissues of the lateral abdominal wall suggests anasarca. 3. Small infiltrate medial left lower lung. Abhinav Mcdonald MD on September 26, 2016 at 3:19 Board Certified Radiologist. This report was verified electronically.
[2016-09-26] MEDS: CHLORHEXIDINE GLUCONATE 2 % 1 PACK (2 CLOTHS) TOP SCH (04:00)
[2016-09-26] MEDS ORDERED: CALCIUM CHLORIDE INJ 1 GM in SODIUM CHLORIDE 0.9% INJ 100 ML IV SCH (04:00)
[2016-09-26] MEDS: SODIUM BICARBONATE 8.4% INJ 150 MEQ in DEXTROSE 5% IN WATE 1000ML INJ 850 ML IV SCH ×2 (04:56)
[2016-09-26] MEDS: RESP: ALBUTEROL 2.5 MG/IPRATROPIUM 0.5 MG NEB (SCH) INH ×4 (04:58→20:42)
--- NOTE | 2016-09-26 06:10 | PD.PROCEDR ---
Central Line Procedure THIS NOTE IS INTENDED FOR 09/25/16 REASON FOR PROCEDURE Central venous access PROCEDURE PERFORMED Central line placement: Right femoral vascular catheter CONSENT Informed consent for procedure was not obtained, done emergently for immediate dialysis. The risks and benefits of the procedure were discussed to include but limited to bleeding, clot formation, infection, and even . ANESTHESIA Local injection of 1% Lidocaine DESCRIPTION OF THE PROCEDURE The patient was placed in supine, mild Trendelenburg position. The area was exposed and cleansed with ChloraPrep, times two. Large sterile drape was used to cover the patient, with the site exposed, under sterile conditions including cap, face mask, sterile gown, and sterile gloves. On single attempt, the introducer needle was inserted with negative pressure in syringe and venous flash was obtained. The guide wire was then advanced without any restriction and the needle was removed. The dilator was used without any complications. Using Seldinger technique the vacular catheter was advanced over the guide wire to a depth of 20 centimeters. The guide wire was removed. All ports were aspirated with dark venous blood return and flushed easily with sterile saline. All ports were capped. Antibiotic disc was placed around central line at puncture site. The central line was secured to the skin with two interrupted 2.0 silk sutures. The area was bandaged with sterile see-through central line bandage. RADIOLOGICAL DATA Ultrasound guidance was used to locate R femoral. Doppler/color flow was used to confirm venous flow. COMPLICATIONS: No apparent complications ESTIMATED BLOOD LOSS: Less than 1 cc. My Spears MD Sep 26, 2016 06:10
[2016-09-26] MEDS: RESP: ALBUTEROL 2.5 MG/IPRATROPIUM 0.5 MG NEB (PRN) INH (06:20)
--- NOTE | 2016-09-26 06:23 | RADRPT ---
EXAM DATE/TIME: 09/26/2016 04:18 [facility] COMPARISON: CHEST SINGLE AP, September 25, 2016, 9:58. INDICATIONS : Shortness of breath. MEDICAL HISTORY : None. SURGICAL HISTORY : None. ENCOUNTER: Subsequent ACUITY: 4 - 6 days PAIN SCORE: 0/10 LOCATION: Bilateral chest FINDINGS: A single view of the chest demonstrates the lungs to be symmetrically aerated without evidence of mas s, infiltrate or effusion. The cardiomediastinal contours are unremarkable. Osseous structures are intact. CONCLUSION: The lungs are clear. Abhinav Mcdonald MD on September 26, 2016 at 6:21 Board Certified Radiologist. This report was verified electronically.
[2016-09-26] MEDS: INSULIN ASPART SUPPLEMENTAL SCALE SQ SCH ×4 (06:39→20:09)
--- NOTE | 2016-09-26 07:39 | EKG ---
Date Performed: 09/25/2016 Time Performed: 09:31:23 PTAGE: 45 years EKG: Sinus rhythm BORDERLINE ECG NO PREVIOUS TRACING DOCTOR: Arleen Rubio Interpretating Date/Time 09/26/2016 07:37:56
[2016-09-26] MEDS: PANTOPRAZOLE SODIUM 40 MG VIAL IV SCH (09:00)
[2016-09-26] MEDS: DOCUSATE SODIUM 50 MG/SENNA 8.6 MG TAB PO SCH ×2 (09:00→20:09)
--- NOTE | 2016-09-26 09:53 | PD.PROCEDR ---
Central Line Procedure REASON FOR PROCEDURE Central venous access PROCEDURE PERFORMED Central line placement: Right internal jugular vas catheter placement CONSENT Informed consent for procedure was obtained from patient's mother. The risks and benefits of the procedure were discussed to include but limited to bleeding , clot formation, infection, and even . ANESTHESIA Local injection of 1% Lidocaine DESCRIPTION OF THE PROCEDURE The patient was placed in supine, mild Trendelenburg position. The area was exposed and cleansed with ChloraPrep, times two. Large sterile drape was used to cover the patient, with the site exposed, under sterile conditions including cap, face mask, sterile gown, and sterile gloves. On single attempt, the introducer needle was inserted with negative pressure in syringe and venous flash was obtained. The guide wire was then advanced without any restriction and the needle was removed. The dilator was used without any complications. Using Seldinger technique the vascular catheter was advanced over the guide wire to a depth of 15 centimeters. The guide wire was removed. All ports were aspirated with dark venous blood return and flushed easily with sterile saline. All ports were capped. Antibiotic disc was placed around central line at puncture site. The central line was secured to the skin with two interrupted 2.0 silk sutures. The area was bandaged with sterile see-through central line bandage. RADIOLOGICAL DATA Ultrasound guidance was used to locate right internal jugular. Doppler/color flow was used to confirm venous flow. COMPLICATIONS: No apparent complications ESTIMATED BLOOD LOSS: Less than 1 cc. My Spears MD Sep 26, 2016 09:53
[2016-09-26 10:05] LABS: AUTOMATED NEUTROPHIL # 14.9 TH/MM3 (1.8-7.7); BASOPHIL # 0.1 TH/MM3 (0-0.2); BASOPHIL % 0.4 % (0.0-2.0); HEMATOCRIT 31.7 % (39.0-51.0); HEMO FLAGS DIFF FINAL; LYMPH % 1.9 % (9.0-44.0); LYMPHOCYTE # 0.3 TH/MM3 (1.0-4.8); MEAN CELL VOLUME 82.1 FL (80.0-100.0); MEAN CORPUSCULAR HGB CONC 34.1 % (32.0-36.0); NEUT % 95.7 % (16.0-70.0); PLATELET COUNT 232 TH/MM3 (150-450); RED BLOOD COUNT 3.86 MIL/MM3 (4.50-5.90); RED CELL DISTRIBUTION WIDTH 14.7 % (11.6-17.2); WHITE BLOOD COUNT 15.6 TH/MM3 (4.0-11.0)
[2016-09-26 10:06] LABS: BLOOD GAS BASE EXCESS -4.8 mmol/L (-2-2); BLOOD GAS CARBOXYHEMOGLOBIN 1.4 % (0-4); BLOOD GAS HCO3 20 mmol/L (22-26); BLOOD GAS METHEMOGLOBIN 1.5 % (0-2); BLOOD GAS O2 HGB SATURATION 95 % (90-100); BLOOD GAS OXYGEN CONTENT 14.9 Vol % (12.0-20.0); BLOOD GAS PCO2 42 mmHg (38-42); BLOOD GAS PO2 107 mmHg (61-120); BLOOD GAS TOTAL HGB 11.1 G/DL (12.0-16.0); TEMP CORR TO 98.6
[2016-09-26 10:07] LABS: CRITICAL VALUE NO; DRAW SITE RT BRACHIAL; LITER FLOW 5 L/M; NUMBER OF ARTERIAL PUNCTURES 1; OXYGEN DEVICE NASAL CANNULA; STAT NO; ULNAR PULSE PRESENT
--- NOTE | 2016-09-26 10:09 | HHI.CCPN ---
Subjective Remarks/Hospital Course This is a 45-year-old with history of hypertension, who presents to emergency room with multiple complaints. 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 Patient reports that he was brought home where his mother cared for him. Patient reports that he has had decreased urine output for the past week. Reports that he has minimal urine output and reports that he feels jittery and is having increased muscle spasms at this time. Patient also reports that yesterday, he has had increased cough and significant wheezing. Patient denies any fevers or chills. Reports that he does feel short of breath with his cough and wheezing. No chest pain at this time. Patient is a three fourths packs per day smoker 20 years. In the emergency department the patient was noted to be severely dehydrated with a BUN is 167, hyperkalemic potassium level 6.5 and hyponatremic with a sodium level of 115. Critical care medicine was consulted. Upon entering the ED, the patient was alert and oriented 3, with notable muscle spasms and involuntary twitching of extremities 4. Patient was noted to have arrhythmias, D50, insulin, Kayexalate, calcium gluconate was immediately instituted. The patient was receiving 3 L of normal saline bolus. Subjective: 09/26: The patient continues in 4 point restraints, secondary to intermittent bouts of confusion. Last evening the patient removed a 20 cm right femoral vascular catheter from his groin utilized for dialysis. Serial a.m. labs, ABG are pending for this morning. The patient continues to wheeze despite being on DuoNeb, methylprednisolone and budesonide. Pulmonology has been consulted. During the night the patient was noted to still be severely hypocalcemic and received overnight in 12 hours 5 g of calcium chloride, labs pending this morning. Myoclonic jerking of all 4 extremities still observed . Discussion with the patient regarding ingestion of toxic or illicit substances, the patient revealed utilizing marijuana occasionally, and approximately 2 weeks ago "Piotr" synthetic marijuana. The patient continues on sodium bicarbonate infusion, with plans for dialysis this a.m.. Objective Vital Signs Date Time Temp Pulse Resp B/P Pulse Ox O2 Delivery O2 Flow Rate FiO2 09/26/16 08:44 96 Nasal Cannula 5.00 09/26/16 06:00 97 09/26/16 04:00 97.8 28 180/82 Intake and Output 09/25/16 09/25/16 09/26/16 08:00 16:00 00:00 Intake Total 1411 ml Output Total 2450 ml Balance -1039 ml Result Diagram: 09/25/16 1506 09/25/162022 Other Results Laboratory Tests Test 09/25/16 14:12 Blood Gas Puncture Site LT RADIAL Blood Gas Patient Temperature 98.6 Blood Gas HCO3 11 mmol/L (22-26) Blood Gas Base Excess -17.0 mmol/L (-2-2) Blood Gas Oxygen Saturation 92 % (90-100) Arterial Blood pH 7.09 (7.380-7.420) Arterial Blood Partial 37 mmHg (38-42) Pressure CO2 Arterial Blood Partial 94 mmHg Pressure O2 (61-120) Arterial Blood Oxygen Content 16.1 Vol % (12.0-20.0) Arterial Blood 1.6 % (0-4) Carboxyhemoglobin Arterial Blood Methemoglobin 1.5 % (0-2) Blood Gas Hemoglobin 12.4 G/DL (12.0-16.0) Oxygen Delivery Device NASAL CANNULA Blood Gas Liter Flow 4 L/M Imaging Last Impressions Chest X-Ray 09/25/16 09 Signed Impressions: Service Date/Time: Sunday, September 25, 2016 09:58 - CONCLUSION: No acute cardiopulmonary abnormality is identified. Boyd Love MD Objective Remarks GENERAL: Morbidly obese male, diaphoretic, myoclonic jerking, twitching of extremities 4 SKIN: Warm and dry. Multiple punctate lesions all over entire body HEAD: Atraumatic. Normocephalic. EYES: Pupils equal and round. No scleral icterus. No injection or drainage. ENT: No nasal bleeding or discharge. Mucous membranes dry NECK: Trachea midline. No JVD. Neck veins flat CARDIOVASCULAR: Normal rate, irregular rhythm. RESPIRATORY: No accessory muscle use. Audible wheezing. Breath sounds equal bilaterally. GASTROINTESTINAL: Abdomen soft, non-tender, nondistended. No guarding. MUSCULOSKELETAL: Extremities without clubbing, cyanosis, or edema. No obvious deformities. Multiple skin abrasions multiple punctate lesions on extremities 4 NEUROLOGICAL: Awake and alert. RASS 0. No gross focal/sensory deficits. Follows commands in all 4 extremities. Persistent muscle spasms and involuntary twitching bilateral extremities, as well as truncal muscles. Procedures RIJ vascular catheter placement Urinary Catheter: Yes Gutierrez insert reason: Measure Accurate Output Date of Insertion: Sep 25, 2016 Vascular Central Line Catheter: Yes Assessment to: Continue Side: Right Location: Internal, Jugular Reason for Continuation vascular catheter A/P Assessment and Plan 1. Hyperkalemia 2. Rhabdomyolysis 3. Acute renal failure 4. Acute hyponatremia 5. Hypocalcemia 6. Severe dehydration 7. Acute respiratory distress 8. Metabolic acidosis 2/2 CONCEPCION 9. Hypertension 10. Transaminitis Plan by systems: Neurologic: -Neurochecks per ICU protocol -09/25 EEG-abnormalmoderately to severe diffuse disturbance of cerebral function. No epileptiform activity -09/25 U tox screen-positive for amphetamines -CT brain-no acute abnormality -Continued myoclonic jerking, neurology consulted Respiratory: -DuoNeb nebs every 6 hours scheduled, duo nab's every 2 hours when necessary -09/26 chest x-ray clear -Budesonide 0.5 mg every 12 hours Neb treatments, methylprednisolone 60 mg every 8 hours -Maintain O2 sat greater than 92% -ABG 7.30/42.4/107/20.4/-4.8 -Decrease sodium bicarbonate infusion Cardiovascular: -09/26 EKG-NSR -Telemetry -Hydralazine 20 mg every 6 hours for systolic blood pressure greater than 160 Renal: -Maintain Gutierrez catheter -- Strict I/Os -Vas catheter replacement-hemodialysis 09/25 2 liters removed, K level 5.4, hemodialysis scheduled for this am -Nephrology following Dr. Daugherty -09/25 renal ultrasound no obstructive uropathy --Follow creatinine kinase levels every 6 hours FEN/GI: -Obtain serial sodium every 6 hours . -Monitor BMP -Ice chips -Continue IV hydration -Monitor creatinine kinase every 6 hours, CK level 13,795-> 8755 -Hepatitis panel pending Heme/ID: 09/25 blood urine cultures -NGTD Endocrine: Glucose monitoring per ICU protocol -- SSI Prophylaxis: GI Prophylaxis Protonix DVT Prophylaxis -- SCDs Heparin twice a day Lines: Peripheral IVs 2. Dispo:. This patient remains critically ill with one or more organ systems which are or may become a threat to life. I have spent in excess of 30 minutes discontinuously in the care and management of this patient. This time is exclusive of procedures, and includes, but is not limited to, evaluation of the patient, review of the medical record, discussions with family, consultants, nursing staff, or respiratory therapy, and documentation in the medical record. As patient remains critically ill with rhabdomyolysis, acute kidney failure, and severe metabolic derangements. Physician My Henley MD Sep 26, 2016 10:09
--- NOTE | 2016-09-26 10:11 | RADRPT ---
EXAM DATE/TIME: 09/26/2016 09:18 [facility] COMPARISON: CHEST SINGLE AP, September 26, 2016, 4:18. INDICATIONS : Central line placement. MEDICAL HISTORY : Cardiovascular disease. Hypertension. Gout. Renal failure. SURGICAL HISTORY : None. ENCOUNTER: Subsequent ACUITY: 2 days PAIN SCORE: 0/10 LOCATION: Bilateral chest FINDINGS: A right internal jugular Vas-Cath has its tip in the superior vena cava. There is no pneumothorax. Minimal central pulmonary vascular congestion is noted. The heart is mildly prominent. CONCLUSION: 1. No pneumothorax status post placement of right internal jugular Vas-Cath which has its tip in the superior vena cava. 2. Minimal central pulmonary vascular congestion. 3. Mild cardiomegaly. Florentino Burnett MD on September 26, 2016 at 9:37 Board Certified Radiologist. This report was verified electronically.
[2016-09-26 10:48] LABS: BICARBONATE 21.5 MEQ/L (21.0-32.0); MAGNESIUM 2.2 MG/DL (1.5-2.5); POTASSIUM 5.1 MEQ/L (3.5-5.1); TOTAL BILIRUBIN ADULT 0.3 MG/DL (0.2-1.0)
[2016-09-26 11:05] LABS: CALCIUM-PROTEIN CORRECTED 7.1 MG/DL (8.5-10.1)
[2016-09-26 11:22] LABS: CKMB 22.9 NG/ML (0.5-3.6)
--- NOTE | 2016-09-26 11:33 | HHI.NPPN ---
Subjective History of Present Illness 45 year old male with Rhabdomyolysis, ARF Objective Data Data 09/25/16 09/26/16 19:00 07:00 Intake Total 2204 ml Output Total 2650 ml Balance -446 ml Intake IV Total 2204 ml Output Urine Total 650 ml Hemodialysis 2000 ml # Bowel Movements 0 Vital Signs Date Time Temp Pulse Resp B/P Pulse Ox O2 Delivery O2 Flow Rate FiO2 09/26/16 08:44 96 Nasal Cannula 5.00 09/26/16 06:00 97 09/26/16 04:00 91 09/26/16 04:00 97.8 91 28 180/82 93 09/26/16 02:00 91 09/26/16 00:00 93 09/26/16 00:00 98.0 93 17 176/81 97 09/25/16 22:00 97 09/25/16 21:52 95 Nasal Cannula 5.00 09/25/16 20:00 95 09/25/16 20:00 97.9 95 25 141/86 95 09/25/16 18:00 94 09/25/16 16:00 99.1 86 28 116/78 95 09/25/16 16:00 86 09/25/16 14:00 98.5 82 24 162/113 93 09/25/16 14:00 82 09/25/16 12:50 Nasal Cannula 3.00 09/25/16 12:09 90 20 154/64 98 Nasal Cannula 2 -: 09/26/16 0930 09/26/16 0930 Physical Exam General Appearance: Well Developed, Well Nourished Neck Neck Exam: Neck Supple Pulmonary Resp Exam: Clear Bilaterally, Breath Sounds Equal Cardiology CV Exam: Regular, Normal Sinus Rhythm Gastrointestinal/Abdomen GI Exam: Soft, Non-Tender, Bowel Sounds Present Extremeties Extremities Exam: No Edema Assessment/Plan Problem List: (1) Renal failure Plan: Patient has acute tubular necrosis due to rhabdomyolysis his vascath in groin was pulled out by patient, new one IJ is not working try again in groin d/w Dr. Spears continue to monitor 1547 seen at dialysis tolerating it well 2 L UF (2) Rhabdomyolysis Plan: Due to severe dehydration (3) Hyperkalemia Plan: Due to the acute renal failure (4) Hyponatremia Plan: Due to renal failure (5) Hypocalcemia Plan: He received calcium chloride (6) COPD exacerbation Plan: Monitor (7) Acidosis, metabolic Plan: due to ARF Problem Qualifiers (1) Renal failure: Qualified Code: N17.9 - Acute renal failure, unspecified acute renal failure type (2) Rhabdomyolysis: Qualified Code: M62.82 - Non-traumatic rhabdomyolysis Axel Anderson MD Sep 26, 2016 11:33
--- NOTE | 2016-09-26 13:47 | RADRPT ---
EXAM DATE/TIME: 09/26/2016 13:04 [facility] COMPARISON: CHEST SINGLE AP, September 26, 2016, 9:18. INDICATIONS : Vascular catheter placement. MEDICAL HISTORY : Cardiovascular disease. Hypertension. Gout. Renal failure. SURGICAL HISTORY : None. ENCOUNTER: Subsequent ACUITY: 2 days PAIN SCORE: Non-responsive. LOCATION: Bilateral chest FINDINGS: A right neck Vas-Cath is present descending into the SVC. There is no evidence of pneumothorax or oth er complication of placement. The lungs are clear. No pleural effusion is evident. Cardiac contours a re satisfactory technique and projection. CONCLUSION: Satisfactory Vas-Cath positioning. No pneumothorax. Boyd Bowman MD on September 26, 2016 at 13:44 Board Certified Radiologist. This report was verified electronically.
[2016-09-26] MEDS: DEXT 5%-NACL 0.9% 1000 ML INJ 1,000 ML IV SCH (17:59)
--- NOTE | 2016-09-26 18:33 | MB ---
cc: LISANDRO SUAREZ MD DATE OF CONSULTATION 09/26/16 REASON FOR CONSULTATION Myoclonic jerking HISTORY OF PRESENT ILLNESS This is a 45-year-old man admitted to the hospital on 09/25, history hypertension. 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 He had started having decreased urine output over the week, started to feel jittery, increased muscle spasming, coughing, wheezing, some shortness of breath. He came to the emergency room severely dehydrated, BUN 167, potassium was 6.5, sodium 115. I am consulted for involuntary twitching. Patient's calcium level has slowly been corrected. His twitching now, per Dr. Spears, is not seen any longer. He was asleep earlier and nursing has been following him and he did not have any myoclonic jerking. Note - He did have an EEG on 09/25 that showed moderate slowing but no seizure activity, especially with a myoclonus there was no correlation. PAST MEDICAL HISTORY 1. Hypertension 2. Gout. SOCIAL HISTORY He is a smoker, uses work recreational marijuana and amphetamines. No alcohol. No other substances. ALLERGIES None reported MEDICATIONS Home medicines - 1. Clindamycin, 2. Ibuprofen. PHYSICAL EXAMINATION VITAL SIGNS: Temperature is 97.8, pulse 96, respiratory rate 16, blood pressure 146/72 satting at 95% 5 liters nasal cannula. He is awake and alert. He can tell me where he is at. He know he is in the hospital. His speech otherwise is intact, but he is still found somewhat confused, not dysarthric. Follows commands. Pupils reactive. Face symmetrical. 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 He is in restraints. Moves his toes withdraws. DTRs are brisk throughout. Sensory is normal. Gait and cerebellar cannot be assessed. LABORATORY DATA White count currently 15.6, hemoglobin 10.8. His platelets are 232,000. Chemistries - he came in with a sodium of 115, currently it is 127. His creatinine 15.69. His BUN is 142, calcium corrected 7.1 currently. He came in with a 6.2, phosphorus 9.8, ALT 144, AST 71, alk phos 136, CK 7138, albumin 2.4. His ALT and CK numbers are starting to trend down somewhat. Toxicology was positive for amphetamines and opiates. Urine culture was done. Hepatitis panel is negative. No growth of urine or other cultures. IMAGING STUDIES Chest x-ray lungs are clear. IMPRESSION A 45 year-old man with 1. Hyperkalemia. 2. Acute renal failure 3. Rhabdomyolysis 4. Hyponatremia 5. Hypocalcemia. 6. Possible myoclonic jerks. 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 Continue on dialysis. His EEG was abnormal, but it did not show any epileptic activity. I do not think at this time we need to repeat it unless something should change. If he does develop problems again, again, I would consider putting him on some Depakote 500 mg twice a day to see if that helps. Benzodiazepine can also be used, but I am trying to limit anything sedating. We would like his mental status to improve. I think his mental status will prevent at his electrolytes do. At this point, we will continue to monitor neuro status. Please call me if there is any change that needs to be addressed, otherwise, continue current care. Since his myoclonus has improved, no medication at this point in time. MD DAYANNA Ramachandran/ /1:29 PM /6:16 PM
[2016-09-26] MEDS ORDERED: CALCIUM CHLORIDE INJ 1 GM in SODIUM CHLORIDE 0.9% INJ 100 ML IV ONE (19:15)
[2016-09-26] MEDS: RESP: BUDESONIDE 0.5 MG/2 ML NEB NEB SCH (20:42)
--- NOTE | 2016-09-26 22:01 | MB ---
cc: SPENCER PALMER M.D. DATE OF CONSULTATION 09/26/2016 REASON FOR CONSULTATION Wheezing. HISTORY OF PRESENT ILLNESS Mr. Medrano is a 45-year-old male with known history of hypertension who apparently had been exposed to the extreme heat working outside subsequently felt ill with shortness of breath and wheezing, progressively worse presenting to the emergency room with acute renal insufficiency with hyperkalemia and hyponatremia with a serum sodium of 115. The patient was treated for his renal insufficiency, placed on dialysis initially with significant shortness of breath and wheezing, has improved with removal of fluid and bronchodilator therapy as well as IV steroids. He has no fever or chills. No hemoptysis. No TB or industrial exposure. He smokes a pack of cigarettes a day for over 20 years. PAST MEDICAL HISTORY His past medical history is that of: 1. Hypertension. 2. And gout. SOCIAL HISTORY Smokes as above, has a 20 pack-year history or so. MEDICATIONS AT HOME 1. Ibuprofen. 2. He was on antibiotic therapy recently. ALLERGIES None known to medication. FAMILY HISTORY Noncontributory. REVIEW OF SYSTEMS 12-point review of systems as per HPI and past history otherwise negative. PHYSICAL EXAMINATION VITAL SIGNS: On exam temperature is 97.5, pulse 90, respirations 16, blood pressure 120/60. Ox saturation 95% on 5 liters oxygen nasal cannula. HEENT: Exam unremarkable. Eyes without icterus. NECK: Without adenopathy or thyroid enlargement. CHEST: Without dullness to percussion, clear to auscultation. CARDIOVASCULAR: Cardiac exam PMI distant. S1-S2 audible. ABDOMEN: Obese, lax, bowel sounds audible. EXTREMITIES: No clubbing, cyanosis or edema. LABORATORY DATA White count 15,000, hemoglobin 10, hematocrit 31, platelets at 232,000. Sodium 127, potassium 5.1, BUN 142, creatinine 15. ABG today pH 7.30, pCO2 42, pO2 107, 5 liters oxygen nasal cannula. Urine toxicology screen positive for amphetamines. IMAGING Chest x-ray no acute infiltrate. IMPRESSION 1. Acute renal failure. 2. Rhabdomyolysis. 3. Hyperkalemia and hyponatremia and hypocalcemia. 4. Wheezing, probable COPD / asthma component as well as renal insufficiency as discussed above. PLAN The patient has been started on bronchodilator therapy, steroid therapy and appropriately so. He has significantly improved. His dehydration has been treated. His wheezing may be related to underlying COPD and/or asthma as well as renal insufficiency with fluid overload as his dehydration is being corrected. However, at this point his pulmonary status is significantly improved. His oxygenation is adequate on oxygen via nasal cannula. We will follow his course along with you and depending on progress proceed further. I do thank you for asking me to partake in Mr. Medrano's care. Spencer Palmer MD WWW/DONNA /6:19 PM /9:48 PM
[2016-09-26 22:37] LABS: CKMB 20.8 NG/ML (0.5-3.6)
[2016-09-27] VITALS (14 sets, daily range): BP systolic 142–199; BP diastolic 64–93; PULSE 90–104; RESP 15–24; TEMP 97.7–98.7; O2SAT 93–100
[2016-09-27] MEDS: methylPREDNISolone SOD SUCC 125 MG/2 ML VIAL IV PUSH SCH ×3 (01:46→17:16)
[2016-09-27] MEDS: SODIUM CHLOR 0.45% 1000 ML INJ 1,000 ML IV SCH ×3 (01:47→19:29)
[2016-09-27] MEDS: HEPARIN SODIUM - SQ 10,000 UNITS/ML VIAL SQ SCH ×2 (01:47→12:00)
[2016-09-27] MEDS: RESP: ALBUTEROL 2.5 MG/IPRATROPIUM 0.5 MG NEB (SCH) INH ×4 (03:22→21:26)
[2016-09-27] MEDS: CHLORHEXIDINE GLUCONATE 2 % 1 PACK (2 CLOTHS) TOP SCH (04:00)
[2016-09-27] MEDS: DEXT 5%-NACL 0.9% 1000 ML INJ 1,000 ML IV SCH ×2 (04:44→15:53)
[2016-09-27 05:39] LABS: HEMATOCRIT 31.9 % (39.0-51.0); MEAN CELL VOLUME 82.3 FL (80.0-100.0); MEAN CORPUSCULAR HEMOGLOBIN 28.3 PG (27.0-34.0); MEAN CORPUSCULAR HGB CONC 34.4 % (32.0-36.0); PLATELET COUNT 265 TH/MM3 (150-450); RED BLOOD COUNT 3.88 MIL/MM3 (4.50-5.90); RED CELL DISTRIBUTION WIDTH 14.8 % (11.6-17.2); REVIEW FLAG FINAL; WHITE BLOOD COUNT 15.9 TH/MM3 (4.0-11.0)
[2016-09-27 06:09] LABS: BICARBONATE 25.6 MEQ/L (21.0-32.0); MAGNESIUM 2.3 MG/DL (1.5-2.5); POTASSIUM 4.8 MEQ/L (3.5-5.1)
[2016-09-27 06:23] LABS: CALCIUM-PROTEIN CORRECTED 7.2 MG/DL (8.5-10.1)
[2016-09-27] MEDS: INSULIN ASPART SUPPLEMENTAL SCALE SQ SCH ×4 (06:32→20:27)
[2016-09-27 06:38] LABS: CKMB 18.1 NG/ML (0.5-3.6)
[2016-09-27] MEDS: hydrALAZINE HCL 20 MG/ML VIAL IV PUSH PRN ×2 (06:46→17:16)
[2016-09-27] MEDS ORDERED: CALCIUM CHLORIDE INJ 1 GM in DEXTROSE 5% IN WATER 100ML INJ 100 ML IV ONE ×2 (08:00)
[2016-09-27] MEDS: RESP: BUDESONIDE 0.5 MG/2 ML NEB NEB SCH ×2 (08:15→21:26)
[2016-09-27] MEDS: PANTOPRAZOLE SODIUM 40 MG VIAL IV SCH (08:57)
[2016-09-27] MEDS: DOCUSATE SODIUM 50 MG/SENNA 8.6 MG TAB PO SCH ×2 (09:00→20:27)
--- NOTE | 2016-09-27 11:18 | HHI.NPPN ---
Subjective History of Present Illness 45 year old male with Rhabdomyolysis, ARF Objective Data Data 09/26/16 09/27/16 19:00 07:00 Intake Total 390 ml 2123 ml Output Total 2350 ml 400 ml Balance -1960 ml 1723 ml Intake Oral 960 ml IV Total 390 ml 1163 ml Output Urine Total 350 ml 400 ml Hemodialysis 2000 ml # Bowel Movements 0 Vital Signs Date Time Temp Pulse Resp B/P Pulse Ox O2 Delivery O2 Flow Rate FiO2 09/27/16 10:00 102 09/27/16 08:17 95 09/27/16 08:00 98.7 94 16 187/76 98 09/27/16 08:00 102 09/27/16 06:00 95 09/27/16 04:00 90 09/27/16 04:00 98.0 90 24 195/92 96 09/27/16 02:00 91 09/27/16 00:00 98.4 91 16 142/64 100 09/27/16 00:00 91 09/26/16 22:00 92 09/26/16 20:46 99 Nasal Cannula 5.00 09/26/16 20:00 93 09/26/16 20:00 97.6 93 19 120/79 94 09/26/16 18:00 96 09/26/16 16:00 96 09/26/16 16:00 97.5 106 16 126/83 95 09/26/16 14:00 96 09/26/16 12:00 96 09/26/16 12:00 97.8 99 16 146/72 95 -: 09/27/16 0400 09/27/16 0400 Physical Exam General Appearance: Well Developed, Well Nourished Neck Neck Exam: Neck Supple Pulmonary Resp Exam: Clear Bilaterally, Breath Sounds Equal Cardiology CV Exam: Regular, Normal Sinus Rhythm Gastrointestinal/Abdomen GI Exam: Soft, Non-Tender, Bowel Sounds Present Extremeties Extremities Exam: No Edema Assessment/Plan Problem List: (1) Renal failure Plan: Patient has acute tubular necrosis due to rhabdomyolysis next HD today Cr high slowly declining Rhabdomyolysis improved (2) Rhabdomyolysis Plan: Due to severe dehydration (3) Hyperkalemia Plan: Due to the acute renal failure (4) Hyponatremia Plan: Due to renal failure (5) Hypocalcemia Plan: He received calcium chloride (6) COPD exacerbation Plan: Monitor (7) Acidosis, metabolic Plan: due to ARF resolved with HD Problem Qualifiers (1) Renal failure: Qualified Code: N17.9 - Acute renal failure, unspecified acute renal failure type (2) Rhabdomyolysis: Qualified Code: M62.82 - Non-traumatic rhabdomyolysis Axel Anderson MD Sep 27, 2016 11:18
[2016-09-27] MEDS: HEPARIN SODIUM - IV 10,000 UNITS/10 ML VIAL PRN (13:52)
[2016-09-27] MEDS: SODIUM CHLOR 0.9% 1000 ML INJ 1,000 ML IV PRN (13:52)
[2016-09-27] MEDS: GENTAMICIN SULFATE (DIALYSIS USE ONLY) 20 MG/2 ML VIAL IV PRN (13:53)
--- NOTE | 2016-09-27 16:32 | HHI.CCPN ---
Subjective Remarks/Hospital Course This is a 45-year-old with history of hypertension, who presents to emergency room with multiple complaints. 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 Patient reports that he was brought home where his mother cared for him. Patient reports that he has had decreased urine output for the past week. Reports that he has minimal urine output and reports that he feels jittery and is having increased muscle spasms at this time. Patient also reports that yesterday, he has had increased cough and significant wheezing. Patient denies any fevers or chills. Reports that he does feel short of breath with his cough and wheezing. No chest pain at this time. Patient is a three fourths packs per day smoker 20 years. In the emergency department the patient was noted to be severely dehydrated with a BUN is 167, hyperkalemic potassium level 6.5 and hyponatremic with a sodium level of 115. Critical care medicine was consulted. Upon entering the ED, the patient was alert and oriented 3, with notable muscle spasms and involuntary twitching of extremities 4. Patient was noted to have arrhythmias, D50, insulin, Kayexalate, calcium gluconate was immediately instituted. The patient was receiving 3 L of normal saline bolus. Subjective: 09/26: The patient continues in 4 point restraints, secondary to intermittent bouts of confusion. Last evening the patient removed a 20 cm right femoral vascular catheter from his groin utilized for dialysis. Serial a.m. labs, ABG are pending for this morning. The patient continues to wheeze despite being on DuoNeb, methylprednisolone and budesonide. Pulmonology has been consulted. During the night the patient was noted to still be severely hypocalcemic and received overnight in 12 hours 5 g of calcium chloride, labs pending this morning. Myoclonic jerking of all 4 extremities still observed . Discussion with the patient regarding ingestion of toxic or illicit substances, the patient revealed utilizing marijuana occasionally, and approximately 2 weeks ago "Piotr" synthetic marijuana. The patient continues on sodium bicarbonate infusion, with plans for dialysis this a.m.. 09/27: Neurological status much improved. Myoclonus diminishing significantly. Continued calcium supplementation. Sodium level now 129, and the patient continues on normal saline Per nephrology at 84cc/hr. Bicarbonate infusion has been discontinued Diet has been advanced to clear liquids, plans to advance to renal diet if tolerated. Objective Vital Signs Date Time Temp Pulse Resp B/P Pulse Ox O2 Delivery O2 Flow Rate FiO2 09/27/16 14:00 102 09/27/16 12:00 98.7 16 186/87 96 09/26/16 20:46 Nasal Cannula 5.00 Intake and Output 09/26/16 09/26/16 09/27/16 08:00 16:00 00:00 Intake Total 793 ml 390 ml 994 ml Output Total 200 ml 350 ml 2200 ml Balance 593 ml 40 ml -1206 ml Result Diagram: 09/27/16 0400 09/27/16 0400 Other Results Microbiology Date/Time Procedure Status Source Growth 09/25/16 10:50 Urine Culture - Final Complete Urine Catheterized Urine NO GROWTH IN 48 HOURS. Imaging Last Impressions Chest X-Ray 09/25/16913 Signed Impressions: Service Date/Time: Sunday, September 25, 2016 09:58 - CONCLUSION: No acute cardiopulmonary abnormality is identified. Boyd Love MD Objective Remarks GENERAL: Morbidly obese male, diaphoretic, myoclonic jerking, twitching of extremities 4 SKIN: Warm and dry. Multiple punctate lesions all over entire body HEAD: Atraumatic. Normocephalic. EYES: Pupils equal and round. No scleral icterus. No injection or drainage. ENT: No nasal bleeding or discharge. Mucous membranes dry NECK: Trachea midline. No JVD. Neck veins flat CARDIOVASCULAR: Normal rate, irregular rhythm. RESPIRATORY: No accessory muscle use. Audible wheezing. Breath sounds equal bilaterally. GASTROINTESTINAL: Abdomen soft, non-tender, nondistended. No guarding. MUSCULOSKELETAL: Extremities without clubbing, cyanosis, or edema. No obvious deformities. Multiple skin abrasions multiple punctate lesions on extremities 4 NEUROLOGICAL: Awake and alert. RASS 0. No gross focal/sensory deficits. Follows commands in all 4 extremities. Persistent muscle spasms and involuntary twitching bilateral extremities, as well as truncal muscles. Procedures RIJ vascular catheter placement Urinary Catheter: Yes Date of Insertion: Sep 25, 2016 Side: Right Location: Internal, Jugular A/P Assessment and Plan 1. Hyperkalemia 2. Rhabdomyolysis 3. Acute renal failure 4. Acute hyponatremia 5. Hypocalcemia 6. Severe dehydration 7. Acute respiratory distress 8. Metabolic acidosis 2/2 CONCEPCION 9. Hypertension 10. Transaminitis 11. LANCE Plan by systems: Neurologic: -Neurochecks per ICU protocol -09/25 EEG-abnormalmoderately to severe diffuse disturbance of cerebral function. No epileptiform activity -09/25 U tox screen-positive for amphetamines -CT brain-no acute abnormality -Neurology following, Dr. Chapman- myoclonus resolved Respiratory: -DuoNeb nebs every 6 hours scheduled, duo nab's every 2 hours when necessary -09/26 chest x-ray clear -Budesonide 0.5 mg every 12 hours Neb treatments, methylprednisolone 60 mg every 8 hours -Maintain O2 sat greater than 92%, continue to wean nasal cannula -Pulmonology following Dr Palmer Cardiovascular: -09/26 EKG-NSR -Telemetry -Hydralazine 20 mg every 6 hours for systolic blood pressure greater than 160 Renal: -Maintain Gutierrez catheter -- Strict I/Os -Vas catheter replacement-hemodialysis 09/25 2 liters removed, K level 5.4, hemodialysis scheduled for this am -Nephrology following Dr. Daugherty -09/25 renal ultrasound no obstructive uropathy --Follow creatinine kinase levels FEN/GI: -Obtain serial sodium every 6 hours . -Monitor BMP -Clear liquid diet, advance to renal diet as tolerated -Continue IV hydration -Monitor creatinine kinase every 6 hours, CK level 13,795-> 8755-> 4624 today -Hepatitis panel-negative Heme/ID: 09/25 blood urine cultures -NGTD Endocrine: Glucose monitoring per ICU protocol -- SSI Prophylaxis: GI Prophylaxis Protonix DVT Prophylaxis -- SCDs Heparin twice a day Lines: Peripheral IVs 2. Dispo: Discussed with TWISTING MACHINE OPERATOR at bedside, and patient's mother. Level 3 Physician My Henley MD Sep 27, 2016 16:32
--- NOTE | 2016-09-27 18:28 | HHI.PR ---
Subjective Remarks alert occasional wheeze snores , witnessed apnea Objective Vital Signs Date Time Temp Pulse Resp B/P Pulse Ox O2 Delivery O2 Flow Rate FiO2 09/27/16 18:00 98.6 104 16 189/71 96 09/27/16 18:00 102 09/27/16 16:00 102 09/27/16 14:00 102 09/27/16 12:00 102 09/27/16 12:00 98.7 101 16 186/87 96 09/27/16 10:00 102 09/27/16 08:17 95 09/27/16 08:00 98.7 94 16 187/76 98 09/27/16 08:00 102 09/27/16 06:00 95 09/27/16 04:00 90 09/27/16 04:00 98.0 90 24 195/92 96 09/27/16 02:00 91 09/27/16 00:00 98.4 91 16 142/64 100 09/27/16 00:00 91 09/26/16 22:00 92 09/26/16 20:46 99 Nasal Cannula 5.00 09/26/16 20:00 93 09/26/16 20:00 97.6 93 19 120/79 94 I/O 09/26/16 09/26/16 09/26/16 09/27/16 09/27/16 09/27/16 07:00 15:00 23:00 07:00 15:00 23:00 Intake Total 793 ml 390 ml 994 ml 1129 ml 786 ml Output Total 200 ml 350 ml 2200 ml 200 ml 175 ml 3000 ml Balance 593 ml 40 ml -1206 ml 929 ml 611 ml -3000 ml Intake Oral 480 ml 480 ml IV Total 793 ml 390 ml 514 ml 649 ml 786 ml Output Urine Total 200 ml 350 ml 200 ml 200 ml 175 ml Hemodialysis 2000 ml 3000 ml # Bowel Movements 0 0 0 Result Diagram: 09/27/16 0400 09/27/16 0400 Objective Remarks GENERAL: SKIN: Warm and dry. HEAD: Atraumatic. Normocephalic. EYES: Pupils equal and round. No scleral icterus. No injection or drainage. ENT: No nasal bleeding or discharge. Mucous membranes pink and moist. NECK: Trachea midline. No JVD. CARDIOVASCULAR: Regular rate and rhythm. RESPIRATORY: No accessory muscle use. Clear to auscultation. Breath sounds equal bilaterally. GASTROINTESTINAL: Abdomen soft, non-tender, nondistended. Hepatic and splenic margins not palpable. MUSCULOSKELETAL: Extremities without clubbing, cyanosis, or edema. No obvious deformities. NEUROLOGICAL: Awake and alert. No obvious cranial nerve deficits. Motor grossly within normal limits. Five out of 5 muscle strength in the arms and legs. Normal speech. PSYCHIATRIC: Appropriate mood and affect; insight and judgment normal. Assessment and Plan Assessment and Plan ass renal failure ? asthma probable LANCE PLAN O2 as needed bronchodilator therapy BIPAP 03/09 WHILE SLEEPING Spencer aPlmer MD Sep 27, 2016 18:28
[2016-09-27] MEDS: LABETALOL HCL 100 MG/20 ML VIAL IV PRN (20:56)
[2016-09-28] VITALS (17 sets, daily range): BP systolic 157–200; BP diastolic 62–91; PULSE 84–105; RESP 14–31; TEMP 97.8–98.6; O2SAT 91–98
[2016-09-28] MEDS: methylPREDNISolone SOD SUCC 125 MG/2 ML VIAL IV PUSH SCH ×3 (00:29→16:36)
[2016-09-28] MEDS: niCARdipine INJ 25 MG in SODIUM CHLOR 0.9% 250 ML INJ 250 ML IV SCH ×4 (01:37→09:36)
[2016-09-28] MEDS: DEXT 5%-NACL 0.9% 1000 ML INJ 1,000 ML IV SCH ×2 (03:45→15:14)
--- NOTE | 2016-09-28 03:46 | RADRPT ---
EXAM DATE/TIME: 09/28/2016 02:58 [facility] COMPARISON: CHEST SINGLE AP, September 26, 2016, 13:04. INDICATIONS : Shortness of breath, possible pulmonary disease. MEDICAL HISTORY : Hypertension. Chronic renal insufficiency. Cardiovascular disease. Gout SURGICAL HISTORY : None. ENCOUNTER: Subsequent ACUITY: 4 - 6 days PAIN SCORE: Non-responsive. LOCATION: Bilateral chest FINDINGS: A single view of the chest demonstrates the lungs to be symmetrically aerated without evidence of mas s, infiltrate or effusion. The cardiomediastinal contours are unremarkable. Osseous structures are intact. Right internal jugular catheter tip at the caval atrial junction. CONCLUSION: Lungs are clear. Abhinav Mcdonald MD on September 28, 2016 at 3:44 Board Certified Radiologist. This report was verified electronically.
[2016-09-28] MEDS: RESP: ALBUTEROL 2.5 MG/IPRATROPIUM 0.5 MG NEB (SCH) INH ×4 (03:51→22:17)
[2016-09-28] MEDS: CHLORHEXIDINE GLUCONATE 2 % 1 PACK (2 CLOTHS) TOP SCH (04:00)
[2016-09-28] MEDS: SODIUM CHLOR 0.45% 1000 ML INJ 1,000 ML IV SCH ×3 (04:31→15:14)
[2016-09-28 04:40] LABS: HEMATOCRIT 34.9 % (39.0-51.0); MEAN CORPUSCULAR HGB CONC 33.8 % (32.0-36.0); PLATELET COUNT 305 TH/MM3 (150-450); RED BLOOD COUNT 4.21 MIL/MM3 (4.50-5.90); REVIEW FLAG FINAL; WHITE BLOOD COUNT 21.6 TH/MM3 (4.0-11.0)
[2016-09-28 05:07] LABS: INDIRECT BILIRUBIN 0.2 MG/DL (0.0-0.8); MAGNESIUM 2.3 MG/DL (1.5-2.5); TOTAL BILIRUBIN ADULT 0.3 MG/DL (0.2-1.0)
[2016-09-28 05:42] LABS: CKMB 13.1 NG/ML (0.5-3.6)
[2016-09-28] MEDS: INSULIN ASPART SUPPLEMENTAL SCALE SQ SCH ×4 (07:00→20:04)
[2016-09-28] MEDS: RESP: BUDESONIDE 0.5 MG/2 ML NEB NEB SCH ×2 (07:58→22:17)
[2016-09-28] MEDS: PANTOPRAZOLE SODIUM 40 MG VIAL IV SCH (08:30)
[2016-09-28] MEDS: DOCUSATE SODIUM 50 MG/SENNA 8.6 MG TAB PO SCH ×2 (08:30→20:03)
[2016-09-28] MEDS: SODIUM CHLOR 0.9% 1000 ML INJ 1,000 ML IV PRN (09:02)
[2016-09-28] MEDS: HEPARIN SODIUM - IV 10,000 UNITS/10 ML VIAL PRN (09:02)
--- NOTE | 2016-09-28 10:47 | HHI.NPPN ---
Subjective History of Present Illness 45 year old male with Rhabdomyolysis, ARF Objective Data Data 09/27/16 09/28/16 19:00 07:00 Intake Total 786 ml 2084 ml Output Total 3175 ml 550 ml Balance -2389 ml 1534 ml Intake Oral 700 ml IV Total 786 ml 1384 ml Output Urine Total 175 ml 550 ml Hemodialysis 3000 ml # Bowel Movements 0 Vital Signs Date Time Temp Pulse Resp B/P Pulse Ox O2 Delivery O2 Flow Rate FiO2 09/28/16 10:00 98 09/28/16 08:01 93 40 09/28/16 08:00 100 09/28/16 08:00 97.8 100 21 158/62 95 09/28/16 07:00 93 Nasal Cannula 6.00 09/28/16 06:00 96 09/28/16 04:34 97 40 09/28/16 04:00 98.2 100 31 189/86 95 09/28/16 04:00 100 09/28/16 02:00 94 09/28/16 00:29 93 Bi-Pap 40 09/28/16 00:27 92 40 09/28/16 00:00 97.9 95 16 200/91 98 09/28/16 00:00 95 09/27/16 22:00 94 09/27/16 20:00 100 09/27/16 20:00 97.7 100 15 199/93 93 09/27/16 19:49 95 Nasal Cannula 2.00 09/27/16 18:00 98.6 104 16 189/71 96 09/27/16 18:00 102 09/27/16 16:00 102 09/27/16 14:00 102 09/27/16 12:00 102 09/27/16 12:00 98.7 101 16 186/87 96 -: 09/28/16 0347 09/27/16 0400 Physical Exam General Appearance: Well Developed, Well Nourished Neck Neck Exam: Neck Supple Pulmonary Resp Exam: Clear Bilaterally, Breath Sounds Equal Cardiology CV Exam: Regular, Normal Sinus Rhythm Gastrointestinal/Abdomen GI Exam: Soft, Non-Tender, Bowel Sounds Present Extremeties Extremities Exam: No Edema Assessment/Plan Problem List: (1) Renal failure Plan: Patient has acute tubular necrosis due to rhabdomyolysis seen during hemodialysis 2 K UF 2.5-3 L as tolerated Cr high slowly declining Rhabdomyolysis improved (2) Rhabdomyolysis Plan: Due to severe dehydration (3) Hyperkalemia Plan: Due to the acute renal failure (4) Hyponatremia Plan: Due to renal failure (5) Hypocalcemia Plan: He received calcium chloride (6) COPD exacerbation Plan: Monitor (7) Acidosis, metabolic Plan: due to ARF resolved with HD Problem Qualifiers (1) Renal failure: Qualified Code: N17.9 - Acute renal failure, unspecified acute renal failure type (2) Rhabdomyolysis: Qualified Code: M62.82 - Non-traumatic rhabdomyolysis Axel Anderson MD Sep 28, 2016 10:47
[2016-09-28] MEDS: HEPARIN SODIUM - SQ 10,000 UNITS/ML VIAL SQ SCH ×3 (11:10→22:53)
--- NOTE | 2016-09-28 11:58 | HHI.CCPN ---
Subjective Remarks/Hospital Course This is a 45-year-old with history of hypertension, who presents to emergency room with multiple complaints. 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 Patient reports that he was brought home where his mother cared for him. Patient reports that he has had decreased urine output for the past week. Reports that he has minimal urine output and reports that he feels jittery and is having increased muscle spasms at this time. Patient also reports that yesterday, he has had increased cough and significant wheezing. Patient denies any fevers or chills. Reports that he does feel short of breath with his cough and wheezing. No chest pain at this time. Patient is a three fourths packs per day smoker 20 years. In the emergency department the patient was noted to be severely dehydrated with a BUN is 167, hyperkalemic potassium level 6.5 and hyponatremic with a sodium level of 115. Critical care medicine was consulted. Upon entering the ED, the patient was alert and oriented 3, with notable muscle spasms and involuntary twitching of extremities 4. Patient was noted to have arrhythmias, D50, insulin, Kayexalate, calcium gluconate was immediately instituted. The patient was receiving 3 L of normal saline bolus. Subjective: 09/26: The patient continues in 4 point restraints, secondary to intermittent bouts of confusion. Last evening the patient removed a 20 cm right femoral vascular catheter from his groin utilized for dialysis. Serial a.m. labs, ABG are pending for this morning. The patient continues to wheeze despite being on DuoNeb, methylprednisolone and budesonide. Pulmonology has been consulted. During the night the patient was noted to still be severely hypocalcemic and received overnight in 12 hours 5 g of calcium chloride, labs pending this morning. Myoclonic jerking of all 4 extremities still observed . Discussion with the patient regarding ingestion of toxic or illicit substances, the patient revealed utilizing marijuana occasionally, and approximately 2 weeks ago "Piotr" synthetic marijuana. The patient continues on sodium bicarbonate infusion, with plans for dialysis this a.m.. 09/27: Neurological status much improved. Myoclonus diminishing significantly. Continued calcium supplementation. Sodium level now 129, and the patient continues on normal saline Per nephrology at 84cc/hr. Bicarbonate infusion has been discontinued .Diet has been advanced to clear liquids, plans to advance to renal diet if tolerated. 09/28: Afebrile. Urine output much improved last night, 800 cc. Patient tolerating renal diet. BiPAP at night initiated secondary to obstructive sleep apnea. Creatinine kinase trending down. Patient scheduled for dialysis today. Overnight the patient became hypertensive and tachycardic, placed on a Cardene infusion. By mouth antihypertensives initiated this a.m., with weaning process of nicardipine. Objective Vital Signs Date Time Temp Pulse Resp B/P Pulse Ox O2 Delivery O2 Flow Rate FiO2 09/28/16 10:00 98 09/28/16 08:01 93 40 09/28/16 08:00 97.8 21 158/62 09/28/16 07:00 Nasal Cannula 6.00 Intake and Output 09/27/16 09/27/16 09/27/16 07:59 15:59 23:59 Intake Total 1129 ml 786 ml 902 ml Output Total 200 ml 3175 ml 300 ml Balance 929 ml -2389 ml 602 ml Result Diagram: 09/28/16 0347 09/27/16 0400 Imaging Last Impressions Chest X-Ray 09/25/16 0914 Signed Impressions: Service Date/Time: Sunday, September 25, 2016 09:58 - CONCLUSION: No acute cardiopulmonary abnormality is identified. Boyd Love MD Objective Remarks GENERAL: Morbidly obese male sitting up in bed alert and appropriate conversation SKIN: Warm and dry. Multiple punctate lesions all over entire body HEAD: Atraumatic. Normocephalic. EYES: Pupils equal and round. No scleral icterus. No injection or drainage. ENT: No nasal bleeding or discharge. Mucous membranes dry NECK: Trachea midline. No JVD. CARDIOVASCULAR: Normal rate, irregular rhythm. RESPIRATORY: No accessory muscle use. Clear to auscultation. Breath sounds equal bilaterally. GASTROINTESTINAL: Abdomen soft, non-tender, nondistended. No guarding. MUSCULOSKELETAL: Extremities without clubbing, cyanosis, or edema. No obvious deformities. Multiple skin abrasions multiple punctate lesions on extremities 4 in multiple stages of healing NEUROLOGICAL: Awake and alert. RASS 0. No gross focal/sensory deficits. Follows commands in all 4 extremities. Clonus resolved Date of Insertion: Sep 25, 2016 Side: Right Location: Internal, Jugular Reason for Continuation Dialysis A/P Assessment and Plan 1. Hyperkalemia-resolved 2. Rhabdomyolysis 3. Acute renal failure 4. Acute hyponatremia 5. Hypocalcemia 6. Severe dehydration 7. Acute respiratory distress 8. Metabolic acidosis 2/2 CONCEPCION 9. Hypertension 10. Transaminitis 11. LANCE 12 Persistent leukocytosis Plan by systems: Neurologic: -Neurochecks per ICU protocol -09/25 EEG-abnormalmoderately to severe diffuse disturbance of cerebral function. No epileptiform activity -09/25 U tox screen-positive for amphetamines -CT brain-no acute abnormality -Neurology following, Dr. Chapman- myoclonus resolved (09/27) Respiratory: -DuoNeb nebs every 6 hours scheduled, duo nab's every 2 hours when necessary -09/27 chest x-ray clear -Budesonide 0.5 mg every 12 hours Neb treatments, methylprednisolone 60 mg every 8 hours -Maintain O2 sat greater than 92%, continue to wean nasal cannula -Pulmonology following Dr Palmer -09/28-BiPAP instituted at night -Wheezing resolved, will begin weaning process of steroid Cardiovascular: -09/26 EKG-NSR -Telemetry -Hydralazine 20 mg every 6 hours for systolic blood pressure greater than 160 -09/27 Nicardipine infusion -09/28 Initiate metoprolol 25 mg twice a day, clonidine 0.1 twice a day Renal: -Maintain Gutierrez catheter -- Strict I/Os -Hemodialysis per nephrology -Nephrology following Dr. Daugherty -09/25 renal ultrasound no obstructive uropathy --Follow creatinine kinase levels FEN/GI: -Obtain serial sodium every 6 hours . -Monitor BMP -Renal diet -Continue IV hydration -Monitor creatinine kinase , CK level 4624-> 2453 today -09/27 Hepatitis panel-negative Heme/ID: 09/25 blood urine cultures -NGTD 09/25 urine culture -NGTD Endocrine: Glucose monitoring per ICU protocol -- SSI Prophylaxis: GI Prophylaxis Protonix DVT Prophylaxis -- SCDs Heparin twice a day Lines: Peripheral IVs 2. Dispo: Discussed with DRILLER HELPER at bedside, and patient's mother. Level 3 Physician My Henley MD Sep 28, 2016 11:58
[2016-09-28] MEDS: METOPROLOL TARTRATE 25 MG TAB PO SCH ×2 (12:13→20:03)
[2016-09-28] MEDS: cloNIDine HCL 0.1 MG TAB PO SCH ×2 (14:10→20:04)
[2016-09-28 15:47] LABS: BICARBONATE 28.3 MEQ/L (21.0-32.0); POTASSIUM 4.4 MEQ/L (3.5-5.1)
--- NOTE | 2016-09-28 16:20 | HHI.PR ---
Subjective Remarks alert occasional wheeze snores , witnessed apnea Objective Vital Signs Date Time Temp Pulse Resp B/P Pulse Ox O2 Delivery O2 Flow Rate FiO2 09/28/16 14:00 99 09/28/16 12:00 98 09/28/16 12:00 98.0 105 17 169/70 91 09/28/16 10:00 98 09/28/16 08:01 93 40 09/28/16 08:00 100 09/28/16 08:00 97.8 100 21 158/62 95 09/28/16 07:00 93 Nasal Cannula 6.00 09/28/16 06:00 96 09/28/16 04:34 97 40 09/28/16 04:00 98.2 100 31 189/86 95 09/28/16 04:00 100 09/28/16 02:00 94 09/28/16 00:29 93 Bi-Pap 40 09/28/16 00:27 92 40 09/28/16 00:00 97.9 95 16 200/91 98 09/28/16 00:00 95 09/27/16 22:00 94 09/27/16 20:00 100 09/27/16 20:00 97.7 100 15 199/93 93 09/27/16 19:49 95 Nasal Cannula 2.00 09/27/16 18:00 98.6 104 16 189/71 96 09/27/16 18:00 102 I/O 09/27/16 09/27/16 09/27/16 09/28/16 09/28/16 09/28/16 07:00 15:00 23:00 07:00 15:00 23:00 Intake Total 1129 ml 786 ml 902 ml 1182 ml 1475 ml Output Total 200 ml 175 ml 3300 ml 250 ml 2900 ml Balance 929 ml 611 ml -2398 ml 932 ml -1425 ml Intake Oral 480 ml 500 ml 200 ml 800 ml IV Total 649 ml 786 ml 402 ml 982 ml 675 ml Output Urine Total 200 ml 175 ml 300 ml 250 ml 400 ml Hemodialysis 3000 ml 2500 ml # Bowel Movements 0 0 0 Result Diagram: 09/28/16 0347 09/28/16 1430 Objective Remarks GENERAL: SKIN: Warm and dry. HEAD: Atraumatic. Normocephalic. EYES: Pupils equal and round. No scleral icterus. No injection or drainage. ENT: No nasal bleeding or discharge. Mucous membranes pink and moist. NECK: Trachea midline. No JVD. CARDIOVASCULAR: Regular rate and rhythm. RESPIRATORY: No accessory muscle use. Clear to auscultation. Breath sounds equal bilaterally. GASTROINTESTINAL: Abdomen soft, non-tender, nondistended. Hepatic and splenic margins not palpable. MUSCULOSKELETAL: Extremities without clubbing, cyanosis, or edema. No obvious deformities. NEUROLOGICAL: Awake and alert. No obvious cranial nerve deficits. Motor grossly within normal limits. Five out of 5 muscle strength in the arms and legs. Normal speech. PSYCHIATRIC: Appropriate mood and affect; insight and judgment normal. Assessment and Plan Assessment and Plan ass renal failure ? asthma probable LANCE PLAN O2 as needed bronchodilator therapy BIPAP 03/09 WHILE SLEEPING Spencer Palmer MD Sep 28, 2016 16:19
[2016-09-28] MEDS: hydrALAZINE HCL 20 MG/ML VIAL IV PUSH PRN ×2 (16:36→22:53)
[2016-09-29] VITALS (17 sets, daily range): BP systolic 161–191; BP diastolic 72–86; PULSE 76–106; RESP 11–18; TEMP 97.8–98.6; O2SAT 92–98
[2016-09-29] MEDS: methylPREDNISolone SOD SUCC 125 MG/2 ML VIAL IV PUSH SCH ×2 (01:10→10:13)
[2016-09-29] MEDS: SODIUM CHLOR 0.45% 1000 ML INJ 1,000 ML IV SCH ×4 (01:10→20:43)
[2016-09-29] MEDS: DEXT 5%-NACL 0.9% 1000 ML INJ 1,000 ML IV SCH ×2 (02:55→15:30)
[2016-09-29] MEDS: LABETALOL HCL 100 MG/20 ML VIAL IV PRN (02:55)
[2016-09-29] MEDS: METOPROLOL TARTRATE 25 MG TAB PO SCH ×2 (03:38→11:47)
[2016-09-29] MEDS: CHLORHEXIDINE GLUCONATE 2 % 1 PACK (2 CLOTHS) TOP SCH (03:38)
[2016-09-29] MEDS: RESP: ALBUTEROL 2.5 MG/IPRATROPIUM 0.5 MG NEB (SCH) INH ×4 (04:04→21:11)
[2016-09-29 06:08] LABS: AUTOMATED NEUTROPHIL # 20.8 TH/MM3 (1.8-7.7); BASOPHIL # 0.1 TH/MM3 (0-0.2); BASOPHIL % 0.3 % (0.0-2.0); HEMATOCRIT 34.7 % (39.0-51.0); HEMO FLAGS DIFF FINAL; LYMPHOCYTE # 0.4 TH/MM3 (1.0-4.8); MEAN CELL VOLUME 83.9 FL (80.0-100.0); MEAN CORPUSCULAR HGB CONC 32.1 % (32.0-36.0); MONO % 2.8 % (0.0-8.0); NEUT % 94.9 % (16.0-70.0); PLATELET COUNT 238 TH/MM3 (150-450); RED BLOOD COUNT 4.13 MIL/MM3 (4.50-5.90); RED CELL DISTRIBUTION WIDTH 14.6 % (11.6-17.2); WHITE BLOOD COUNT 21.9 TH/MM3 (4.0-11.0)
[2016-09-29 06:37] LABS: ALT (GPT) 69 U/L (12-78); ANION GAP 12 MEQ/L (5-15); AST (GOT) 38 U/L (15-37); BICARBONATE 27.7 MEQ/L (21.0-32.0); BLOOD UREA NITROGEN 86 MG/DL (7-18); CHLORIDE 96 MEQ/L (98-107); GLOMERULAR FILTRATION RATE 7 ML/MIN (>89); MAGNESIUM 2.2 MG/DL (1.5-2.5); POTASSIUM 4.8 MEQ/L (3.5-5.1); SODIUM (NA) 136 MEQ/L (136-145)
[2016-09-29] MEDS: INSULIN ASPART SUPPLEMENTAL SCALE SQ SCH ×4 (07:00→20:37)
[2016-09-29 07:04] LABS: ALKALINE PHOSPHATASE 95 U/L (45-117); CREATINE KINASE 1359 U/L (39-308); TOTAL BILIRUBIN ADULT 0.3 MG/DL (0.2-1.0)
[2016-09-29 07:36] LABS: CKMB 8.7 NG/ML (0.5-3.6)
[2016-09-29] MEDS: RESP: BUDESONIDE 0.5 MG/2 ML NEB NEB SCH ×2 (08:17→21:12)
[2016-09-29] MEDS: DOCUSATE SODIUM 50 MG/SENNA 8.6 MG TAB PO SCH ×2 (10:13→20:37)
[2016-09-29] MEDS: cloNIDine HCL 0.1 MG TAB PO SCH ×2 (10:13→20:36)
[2016-09-29] MEDS: PANTOPRAZOLE SODIUM 40 MG VIAL IV SCH (10:14)
--- NOTE | 2016-09-29 11:29 | HHI.NPPN ---
Subjective History of Present Illness 45 year old male with Rhabdomyolysis, ARF Objective Data Data 09/28/16 09/29/16 19:00 07:00 Intake Total 1475 ml 1222 ml Output Total 2900 ml 425 ml Balance -1425 ml 797 ml Intake Oral 800 ml 480 ml IV Total 675 ml 742 ml Output Urine Total 400 ml 425 ml Hemodialysis 2500 ml Vital Signs Date Time Temp Pulse Resp B/P Pulse Ox O2 Delivery O2 Flow Rate FiO2 09/29/16 10:00 89 09/29/16 08:20 94 Nasal Cannula 4.00 09/29/16 08:00 97.8 78 13 184/83 93 09/29/16 08:00 91 09/29/16 07:00 93 Nasal Cannula 3.00 09/29/16 06:00 83 09/29/16 04:04 96 40 09/29/16 04:00 98.4 81 13 171/77 96 09/29/16 04:00 81 09/29/16 03:35 94 Nasal Cannula 4.00 09/29/16 02:00 85 09/29/16 00:34 97 40 09/29/16 00:00 98.5 84 11 171/86 96 09/29/16 00:00 84 09/28/16 22:28 95 40 09/28/16 22:18 94 Nasal Cannula 4.00 09/28/16 22:00 90 09/28/16 20:00 90 09/28/16 20:00 98.6 90 14 183/82 94 09/28/16 19:00 94 Nasal Cannula 6.00 09/28/16 18:00 96 09/28/16 16:00 84 09/28/16 16:00 98.5 85 16 157/78 94 09/28/16 14:00 99 09/28/16 12:00 98 09/28/16 12:00 98.0 105 17 169/70 91 -: 09/29/16 0543 09/29/16 0543 Physical Exam General Appearance: Well Developed, Well Nourished Neck Neck Exam: Neck Supple Pulmonary Resp Exam: Clear Bilaterally, Breath Sounds Equal Cardiology CV Exam: Regular, Normal Sinus Rhythm Gastrointestinal/Abdomen GI Exam: Soft, Non-Tender, Bowel Sounds Present Extremeties Extremities Exam: No Edema Assessment/Plan Problem List: (1) Renal failure Plan: Patient has acute tubular necrosis due to rhabdomyolysis seen during hemodialysis UF 3 L as tolerated again today Cr cervical decline and that it is better Rhabdomyolysis improved (2) Rhabdomyolysis Plan: Due to severe dehydration (3) Hyperkalemia Plan: Due to the acute renal failure resolved with hemodialysis (4) Hyponatremia Plan: Due to renal failure resolved with hemodialysis (5) Hypocalcemia Plan: Corrected with hemodialysis (6) COPD exacerbation Plan: Monitor (7) Acidosis, metabolic Plan: due to ARF resolved with HD Problem Qualifiers (1) Renal failure: Qualified Code: N17.9 - Acute renal failure, unspecified acute renal failure type (2) Rhabdomyolysis: Qualified Code: M62.82 - Non-traumatic rhabdomyolysis Axel Anderson MD Sep 29, 2016 11:29
[2016-09-29] MEDS: HEPARIN SODIUM - SQ 10,000 UNITS/ML VIAL SQ SCH (11:47)
--- NOTE | 2016-09-29 14:40 | HHI.CCPN ---
Subjective Remarks/Hospital Course This is a 45-year-old with history of hypertension, who presents to emergency room with multiple complaints. 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 Patient reports that he was brought home where his mother cared for him. Patient reports that he has had decreased urine output for the past week. Reports that he has minimal urine output and reports that he feels jittery and is having increased muscle spasms at this time. Patient also reports that yesterday, he has had increased cough and significant wheezing. Patient denies any fevers or chills. Reports that he does feel short of breath with his cough and wheezing. No chest pain at this time. Patient is a three fourths packs per day smoker 20 years. In the emergency department the patient was noted to be severely dehydrated with a BUN is 167, hyperkalemic potassium level 6.5 and hyponatremic with a sodium level of 115. Critical care medicine was consulted. Upon entering the ED, the patient was alert and oriented 3, with notable muscle spasms and involuntary twitching of extremities 4. Patient was noted to have arrhythmias, D50, insulin, Kayexalate, calcium gluconate was immediately instituted. The patient was receiving 3 L of normal saline bolus. Subjective: 09/26: The patient continues in 4 point restraints, secondary to intermittent bouts of confusion. Last evening the patient removed a 20 cm right femoral vascular catheter from his groin utilized for dialysis. Serial a.m. labs, ABG are pending for this morning. The patient continues to wheeze despite being on DuoNeb, methylprednisolone and budesonide. Pulmonology has been consulted. During the night the patient was noted to still be severely hypocalcemic and received overnight in 12 hours 5 g of calcium chloride, labs pending this morning. Myoclonic jerking of all 4 extremities still observed . Discussion with the patient regarding ingestion of toxic or illicit substances, the patient revealed utilizing marijuana occasionally, and approximately 2 weeks ago "Piotr" synthetic marijuana. The patient continues on sodium bicarbonate infusion, with plans for dialysis this a.m.. 09/27: Neurological status much improved. Myoclonus diminishing significantly. Continued calcium supplementation. Sodium level now 129, and the patient continues on normal saline Per nephrology at 84cc/hr. Bicarbonate infusion has been discontinued .Diet has been advanced to clear liquids, plans to advance to renal diet if tolerated. 09/28: Afebrile. Urine output much improved last night, 800 cc. Patient tolerating renal diet. BiPAP at night initiated secondary to obstructive sleep apnea. Creatinine kinase trending down. Patient scheduled for dialysis today. Overnight the patient became hypertensive and tachycardic, placed on a Cardene infusion. By mouth antihypertensives initiated this a.m., with weaning process of nicardipine. 09/29: The patient has been placed on amlodipine, in addition to metoprolol and clonidine to control blood pressure. The patient stated that previously he was on 4 antihypertensive medications, but decided to stop taking all of them since they made him "feel bad". Plans for out of bed to chair this afternoon, the patient continues on hemodialysis 3.5 L removed today. Objective Vital Signs Date Time Temp Pulse Resp B/P Pulse Ox O2 Delivery O2 Flow Rate FiO2 09/29/16 12:00 98.6 84 12 161/85 92 09/29/16 08:20 Nasal Cannula 4.00 09/29/16 04:04 40 Intake and Output 09/28/16 09/28/16 09/29/16 08:00 16:00 00:00 Intake Total 1182 ml 1475 ml 527 ml Output Total 250 ml 2900 ml 175 ml Balance 932 ml -1425 ml 352 ml Result Diagram: 09/29/16 0543 09/29/16 0543 Imaging Last Impressions Chest X-Ray 09/25/16 0914 Signed Impressions: Service Date/Time: Sunday, September 25, 2016 09:58 - CONCLUSION: No acute cardiopulmonary abnormality is identified. Boyd Love MD Objective Remarks GENERAL: Morbidly obese male sitting up in bed alert and appropriate conversation SKIN: Warm and dry. Multiple punctate lesions all over entire body HEAD: Atraumatic. Normocephalic. EYES: Pupils equal and round. No scleral icterus. No injection or drainage. ENT: No nasal bleeding or discharge. Mucous membranes dry NECK: Trachea midline. No JVD. CARDIOVASCULAR: Normal rate, irregular rhythm. RESPIRATORY: No accessory muscle use. Clear to auscultation. Breath sounds equal bilaterally. GASTROINTESTINAL: Abdomen soft, non-tender, nondistended. No guarding. MUSCULOSKELETAL: Extremities without clubbing, cyanosis, or edema. No obvious deformities. Multiple skin abrasions multiple punctate lesions on extremities 4 in multiple stages of healing NEUROLOGICAL: Awake and alert. RASS 0. No gross focal/sensory deficits. Follows commands in all 4 extremities. Clonus resolved Urinary Catheter: Yes Gutierrez insert reason: Measure Accurate Output Date of Insertion: Sep 25, 2016 Side: Right Location: Internal, Jugular A/P Assessment and Plan 1. Hyperkalemia-resolved 2. Rhabdomyolysis 3. Acute renal failure 4. Acute hyponatremia 5. Hypocalcemia 6. Severe dehydration 7. Acute respiratory distress 8. Metabolic acidosis 2/2 CONCEPCION 9. Hypertension 10. Transaminitis 11. LANCE 12 Persistent leukocytosis Plan by systems: Neurologic: -Neurochecks per ICU protocol -09/25 EEG-abnormalmoderately to severe diffuse disturbance of cerebral function. No epileptiform activity -09/25 U tox screen-positive for amphetamines -CT brain-no acute abnormality -Neurology following, Dr. Chapman- myoclonus resolved (09/27) Respiratory: -DuoNeb nebs every 6 hours scheduled, duo nab's every 2 hours when necessary -09/27 chest x-ray clear -Budesonide 0.5 mg every 12 hours Neb treatments, methylprednisolone 40 mg every 8 hours -Maintain O2 sat greater than 92%, continue to wean nasal cannula -Pulmonology following Dr Palmer -09/28-BiPAP instituted at night -09/29 will begin weaning process of steroid therapy Cardiovascular: -09/26 EKG-NSR -Telemetry -Hydralazine 20 mg every 6 hours for systolic blood pressure greater than 160 -09/27 Nicardipine infusion -09/29 metoprolol 50 mg twice a day, clonidine 0.1 twice a day, amlodipine 10 mg daily Renal: -Maintain Gutierrez catheter -- Strict I/Os -Hemodialysis per nephrology -Nephrology following Dr. Daugherty -09/25 renal ultrasound no obstructive uropathy --Follow creatinine kinase levels FEN/GI: -Obtain serial sodium every 6 hours . -Monitor BMP -Renal diet -Continue IV hydration -Monitor creatinine kinase , CK level 4624-> 2453 today -09/27 Hepatitis panel-negative Heme/ID: 09/25 blood urine cultures -NGTD 09/25 urine culture -NGTD Endocrine: Glucose monitoring per ICU protocol Msk: PT evaluation and treat out of bed -- SSI Prophylaxis: GI Prophylaxis Protonix DVT Prophylaxis -- SCDs Heparin BID Lines: Peripheral IVs 2. Dispo: Discussed with GLOBAL MARKETING COORDINATOR at bedside, and patient's grandmother. And transferred to [facility]. Level 2 Physician My Henley MD Sep 29, 2016 14:40
[2016-09-29] MEDS: methylPREDNISolone SOD SUCC 40 MG/1 ML VIAL IV PUSH SCH (17:42)
[2016-09-29] MEDS: hydrALAZINE HCL 20 MG/ML VIAL IV PUSH PRN (17:43)
--- NOTE | 2016-09-29 18:42 | HHI.PR ---
Subjective Remarks alert occasional wheeze snores , witnessed apnea Objective Vital Signs Date Time Temp Pulse Resp B/P Pulse Ox O2 Delivery O2 Flow Rate FiO2 09/29/16 18:00 106 09/29/16 16:00 98.2 76 18 177/72 95 09/29/16 16:00 92 09/29/16 14:00 77 09/29/16 12:00 98.6 84 12 161/85 92 09/29/16 12:00 86 09/29/16 10:00 89 09/29/16 08:20 94 Nasal Cannula 4.00 09/29/16 08:00 97.8 78 13 184/83 93 09/29/16 08:00 91 09/29/16 07:00 93 Nasal Cannula 3.00 09/29/16 06:00 83 09/29/16 04:04 96 40 09/29/16 04:00 98.4 81 13 171/77 96 09/29/16 04:00 81 09/29/16 03:35 94 Nasal Cannula 4.00 09/29/16 02:00 85 09/29/16 00:34 97 40 09/29/16 00:00 98.5 84 11 171/86 96 09/29/16 00:00 84 09/28/16 22:28 95 40 09/28/16 22:18 94 Nasal Cannula 4.00 09/28/16 22:00 90 09/28/16 20:00 90 09/28/16 20:00 98.6 90 14 183/82 94 09/28/16 19:00 94 Nasal Cannula 6.00 I/O 09/28/16 09/28/16 09/28/16 09/29/16 09/29/16 09/29/16 07:00 15:00 23:00 07:00 15:00 23:00 Intake Total 1182 ml 1475 ml 527 ml 695 ml 815 ml Output Total 250 ml 2900 ml 175 ml 250 ml 3350 ml Balance 932 ml -1425 ml 352 ml 445 ml -2535 ml Intake Oral 200 ml 800 ml 240 ml 240 ml 400 ml IV Total 982 ml 675 ml 287 ml 455 ml 415 ml Output Urine Total 250 ml 400 ml 175 ml 250 ml 350 ml Hemodialysis 2500 ml 3000 ml # Bowel Movements 0 1 Result Diagram: 09/29/16 0543 09/29/16 0543 Objective Remarks GENERAL: SKIN: Warm and dry. HEAD: Atraumatic. Normocephalic. EYES: Pupils equal and round. No scleral icterus. No injection or drainage. ENT: No nasal bleeding or discharge. Mucous membranes pink and moist. NECK: Trachea midline. No JVD. CARDIOVASCULAR: Regular rate and rhythm. RESPIRATORY: No accessory muscle use. Clear to auscultation. Breath sounds equal bilaterally. GASTROINTESTINAL: Abdomen soft, non-tender, nondistended. Hepatic and splenic margins not palpable. MUSCULOSKELETAL: Extremities without clubbing, cyanosis, or edema. No obvious deformities. NEUROLOGICAL: Awake and alert. No obvious cranial nerve deficits. Motor grossly within normal limits. Five out of 5 muscle strength in the arms and legs. Normal speech. PSYCHIATRIC: Appropriate mood and affect; insight and judgment normal. Assessment and Plan Assessment and Plan ass renal failure ? asthma probable LANCE PLAN O2 as needed bronchodilator therapy BIPAP 03/09 WHILE SLEEPING Spencer Palmer MD Sep 29, 2016 18:42
[2016-09-29] MEDS: METOPROLOL TARTRATE 50 MG TAB PO SCH (20:37)
[2016-09-30] VITALS (13 sets, daily range): BP systolic 142–188; BP diastolic 67–88; PULSE 79–97; RESP 12–16; TEMP 97.6–98.6; O2SAT 93–100
[2016-09-30] MEDS: HEPARIN SODIUM - SQ 10,000 UNITS/ML VIAL SQ SCH ×2 (00:15→12:26)
[2016-09-30] MEDS: methylPREDNISolone SOD SUCC 40 MG/1 ML VIAL IV PUSH SCH ×2 (00:15→08:36)
[2016-09-30] MEDS: CHLORHEXIDINE GLUCONATE 2 % 1 PACK (2 CLOTHS) TOP SCH (03:08)
[2016-09-30] MEDS: DEXT 5%-NACL 0.9% 1000 ML INJ 1,000 ML IV SCH ×2 (03:08→20:50)
[2016-09-30] MEDS: METOPROLOL TARTRATE 50 MG TAB PO SCH ×3 (03:08→20:55)
[2016-09-30] MEDS: SODIUM CHLOR 0.45% 1000 ML INJ 1,000 ML IV SCH ×3 (03:09→20:51)
[2016-09-30] MEDS: RESP: ALBUTEROL 2.5 MG/IPRATROPIUM 0.5 MG NEB (SCH) INH ×4 (04:10→21:48)
[2016-09-30] MEDS: INSULIN ASPART SUPPLEMENTAL SCALE SQ SCH ×3 (07:00→21:00)
[2016-09-30 07:15] LABS: CKMB 9.2 NG/ML (0.5-3.6)
[2016-09-30] MEDS: DOCUSATE SODIUM 50 MG/SENNA 8.6 MG TAB PO SCH ×2 (08:36→20:55)
[2016-09-30] MEDS: PANTOPRAZOLE SODIUM 40 MG VIAL IV SCH (08:36)
[2016-09-30] MEDS: cloNIDine HCL 0.1 MG TAB PO SCH ×2 (08:37→20:55)
[2016-09-30] MEDS: RESP: BUDESONIDE 0.5 MG/2 ML NEB NEB SCH ×2 (08:40→20:00)
--- NOTE | 2016-09-30 10:23 | HHI.PR ---
Subjective Remarks f/u ARF, rhabdo No overnight events, shortness of breath is better, able to walk 20 feet. Creatinine still elevated, CK improving. Objective Vitals Vital Signs Date Time Temp Pulse Resp B/P Pulse Ox O2 Delivery O2 Flow Rate FiO2 09/30/16 07:58 97 Nasal Cannula 4.00 09/30/16 06:00 79 09/30/16 04:00 79 09/30/16 04:00 98.4 79 16 166/88 95 09/30/16 03:06 94 09/30/16 03:05 96 Nasal Cannula 4.00 09/30/16 02:00 79 09/30/16 01:07 100 40 09/30/16 00:00 84 09/30/16 00:00 98.4 84 12 183/86 94 09/29/16 22:00 98 40 09/29/16 22:00 98 09/29/16 21:12 96 Nasal Cannula 4.00 09/29/16 20:00 101 09/29/16 20:00 98.4 101 15 191/83 93 09/29/16 19:00 94 Nasal Cannula 3.00 09/29/16 18:00 106 09/29/16 16:00 98.2 76 18 177/72 95 09/29/16 16:00 92 09/29/16 14:00 77 09/29/16 12:00 98.6 84 12 161/85 92 09/29/16 12:00 86 I/O 09/29/16 09/29/16 09/29/16 09/30/16 09/30/16 09/30/16 07:00 15:00 23:00 07:00 15:00 23:00 Intake Total 695 ml 815 ml 318 ml 1004 ml Output Total 250 ml 3350 ml 175 ml 300 ml Balance 445 ml -2535 ml 143 ml 704 ml Intake Oral 240 ml 400 ml 150 ml 480 ml IV Total 455 ml 415 ml 168 ml 524 ml Output Urine Total 250 ml 350 ml 175 ml 300 ml Hemodialysis 3000 ml # Bowel Movements 1 Result Diagram: 09/29/1643 09/29/1643 Objective Remarks GENERAL: Morbidly obese male sitting up in bed alert and appropriate conversation SKIN: Warm and dry. Multiple punctate lesions all over entire body CARDIOVASCULAR: Normal rate, irregular rhythm. RESPIRATORY: No accessory muscle use. Clear to auscultation. Breath sounds equal bilaterally. GASTROINTESTINAL: Abdomen soft, non-tender, nondistended. No guarding. MUSCULOSKELETAL: Extremities without clubbing, cyanosis, or edema. No obvious deformities. Multiple skin abrasions multiple punctate lesions on extremities 4 in multiple stages of healing NEUROLOGICAL: Awake and alert. No focal deficits. Date of Insertion: Sep 25, 2016 Side: Right Location: Internal, Jugular A/P Problem List: (1) Acidosis, metabolic ICD Code: E87.2 Status: Acute (2) Rhabdomyolysis ICD Code: M62.82 Status: Acute (3) Renal failure ICD Code: N19 Status: Acute Assessment and Plan This is a 45-year-old male who presented with generalized weakness, acute renal failure, myoclonus and rhabdomyolysis. Myoclonus -Neurochecks per ICU protocol -09/25 EEG-abnormalmoderately to severe diffuse disturbance of cerebral function. No epileptiform activity -09/25 U tox screen-positive for amphetamines -CT brain-no acute abnormality, myoclonus or so, likely secondary to acute renal failure from accumulation of toxic metabolites. Hypoxic respiratory failure, obstructive sleep apnea,? Asthma/COPD -DuoNeb nebs every 6 hours scheduled, duo nab's every 2 hours when necessary -09/27 chest x-ray clear -Budesonide 0.5 mg every 12 hours Neb treatments, methylprednisolone 40 mg every 8 hours, switched to prednisone 40 mg twice a day -Maintain O2 sat greater than 92%, continue to wean nasal cannula -Pulmonology following Dr Palmer, BiPAP at night or as needed, wean steroids, switched to oral, start incentive spirometry Hypertension, uncontrolled -09/26 EKG-NSR -Telemetry - continue Norvasc, metoprolol and clonidine. Adjust as needed. Acute renal failure secondary to acute sugar necrosis from rhabdomyolysis -Maintain Gutierrez catheter, continue hemodialysis per nephrology, last dialysis was yesterday. Renal ultrasound did not show any obstructive uropathy. CK improving. X-ray imbalance-likely secondary to renal failure, continue dialysis. GI Prophylaxis Protonix DVT Prophylaxis -- SCDs Heparin BID Transfer to [facility]. Discharge Planning Discharge once cleared by nephrology. Problem Qualifiers (1) Rhabdomyolysis: Qualified Code: M62.82 - Non-traumatic rhabdomyolysis (2) Renal failure: Qualified Code: N17.9 - Acute renal failure, unspecified acute renal failure type Shilo Rooney MD Sep 30, 2016 10:23
[2016-09-30 11:38] LABS: ALT (GPT) 63 U/L (12-78); ANION GAP 10 MEQ/L (5-15); AST (GOT) 42 U/L (15-37); BICARBONATE 28.9 MEQ/L (21.0-32.0); BLOOD UREA NITROGEN 88 MG/DL (7-18); CHLORIDE 98 MEQ/L (98-107); GLOMERULAR FILTRATION RATE 7 ML/MIN (>89); POTASSIUM 4.3 MEQ/L (3.5-5.1); SODIUM (NA) 137 MEQ/L (136-145)
[2016-09-30 11:40] LABS: ALKALINE PHOSPHATASE 92 U/L (45-117); TOTAL BILIRUBIN ADULT 0.3 MG/DL (0.2-1.0)
--- NOTE | 2016-09-30 12:21 | HHI.NPPN ---
Subjective History of Present Illness 45 year old male with Rhabdomyolysis, ARF Additional Remarks No acute complaints, feeling tired today Objective Data Data 09/29/16 09/30/16 19:00 07:00 Intake Total 815 ml 1322 ml Output Total 3350 ml 475 ml Balance -2535 ml 847 ml Intake Oral 400 ml 630 ml IV Total 415 ml 692 ml Output Urine Total 350 ml 475 ml Hemodialysis 3000 ml # Bowel Movements 1 Vital Signs Date Time Temp Pulse Resp B/P Pulse Ox O2 Delivery O2 Flow Rate FiO2 09/30/16 10:00 97 09/30/16 08:00 98.5 79 12 158/86 96 09/30/16 08:00 79 09/30/16 07:58 97 Nasal Cannula 4.00 09/30/16 07:00 97 Nasal Cannula 2.00 09/30/16 06:00 79 09/30/16 04:00 79 09/30/16 04:00 98.4 79 16 166/88 95 09/30/16 03:06 94 09/30/16 03:05 96 Nasal Cannula 4.00 09/30/16 02:00 79 09/30/16 01:07 100 40 09/30/16 00:00 84 09/30/16 00:00 98.4 84 12 183/86 94 09/29/16 22:00 98 40 09/29/16 22:00 98 09/29/16 21:12 96 Nasal Cannula 4.00 09/29/16 20:00 101 09/29/16 20:00 98.4 101 15 191/83 93 09/29/16 19:00 94 Nasal Cannula 3.00 09/29/16 18:00 106 09/29/16 16:00 98.2 76 18 177/72 95 09/29/16 16:00 92 09/29/16 14:00 77 -: 09/29/16 0543 09/30/16 1035 Physical Exam General Appearance: Well Developed, Well Nourished Neck Neck Exam: Neck Supple Pulmonary Resp Exam: Clear Bilaterally, Breath Sounds Equal Cardiology CV Exam: Regular, Normal Sinus Rhythm Gastrointestinal/Abdomen GI Exam: Soft, Non-Tender, Bowel Sounds Present Extremeties Extremities Exam: No Edema Assessment/Plan Problem List: (1) Renal failure Plan: Patient has acute tubular necrosis due to rhabdomyolysis HD done yesterday. Ongoing azotemia, marginal UOP Will repeat HD again today, plan for next HD Sunday. (2) Rhabdomyolysis Plan: Due to severe dehydration CK level trending down, still requires HD (3) Hyperkalemia Plan: Due to the acute renal failure resolved with hemodialysis (4) Hyponatremia Plan: Due to renal failure resolved with hemodialysis (5) Hypocalcemia Plan: Corrected with hemodialysis (6) COPD exacerbation Plan: Monitor (7) Acidosis, metabolic Plan: due to ARF resolved with HD Problem Qualifiers (1) Renal failure: Qualified Code: N17.9 - Acute renal failure, unspecified acute renal failure type (2) Rhabdomyolysis: Qualified Code: M62.82 - Non-traumatic rhabdomyolysis Tacho Rachel MD Sep 30, 2016 12:21
[2016-09-30] MEDS: HEPARIN SODIUM - IV 10,000 UNITS/10 ML VIAL PRN (18:22)
[2016-09-30] MEDS: GENTAMICIN SULFATE (DIALYSIS USE ONLY) 20 MG/2 ML VIAL IV PRN (18:22)
[2016-09-30] MEDS: predniSONE 20 MG TAB PO SCH (20:55)
[2016-10-01] VITALS (9 sets, daily range): BP systolic 138–187; BP diastolic 66–93; PULSE 86–99; RESP 17–19; TEMP 96–98.4; O2SAT 91–97
[2016-10-01] MEDS: HEPARIN SODIUM - SQ 10,000 UNITS/ML VIAL SQ SCH ×3 (00:17→23:37)
[2016-10-01] MEDS: METOPROLOL TARTRATE 50 MG TAB PO SCH (03:52)
[2016-10-01] MEDS: CHLORHEXIDINE GLUCONATE 2 % 1 PACK (2 CLOTHS) TOP SCH (03:52)
[2016-10-01] MEDS: INSULIN ASPART SUPPLEMENTAL SCALE SQ SCH ×4 (03:55→20:15)
[2016-10-01] MEDS: SODIUM CHLOR 0.45% 1000 ML INJ 1,000 ML IV SCH ×2 (03:57→11:38)
[2016-10-01] MEDS: RESP: ALBUTEROL 2.5 MG/IPRATROPIUM 0.5 MG NEB (SCH) INH ×4 (05:04→19:21)
[2016-10-01] MEDS: DOCUSATE SODIUM 50 MG/SENNA 8.6 MG TAB PO SCH ×2 (08:18→20:04)
[2016-10-01] MEDS: cloNIDine HCL 0.1 MG TAB PO SCH ×2 (08:19→20:03)
[2016-10-01] MEDS: predniSONE 20 MG TAB PO SCH (08:19)
[2016-10-01] MEDS: PANTOPRAZOLE SOD 40 MG DELAYED RELEASE TAB PO SCH (08:19)
[2016-10-01] MEDS: RESP: BUDESONIDE 0.5 MG/2 ML NEB NEB SCH ×2 (10:24→19:21)
--- NOTE | 2016-10-01 10:58 | HHI.PR ---
Subjective Remarks Follow-up for shortness of breath, hypertension No overnight events, shortness of breath better, on room air, off BiPAP last night. No shortness of breath, no cough, no chest pain. Good urine output. No fever. Objective Vitals Vital Signs Date Time Temp Pulse Resp B/P Pulse Ox O2 Delivery O2 Flow Rate FiO2 10/01/16 10:37 93 10/01/16 08:00 98.4 89 17 148/76 92 10/01/16 04:00 97.2 92 17 187/88 95 10/01/16 00:18 94 10/01/16 00:00 97.7 86 18 138/66 95 09/30/16 20:00 97.6 95 16 188/67 93 09/30/16 14:00 94 09/30/16 12:00 93 09/30/16 12:00 98.6 93 13 142/72 94 I/O 09/30/16 09/30/16 09/30/16 10/01/16 10/01/16 10/01/16 07:00 15:00 23:00 07:00 15:00 23:00 Intake Total 1004 ml 840 ml 1440 ml Output Total 300 ml 3900 ml 900 ml Balance 704 ml -3060 ml 540 ml Intake Oral 480 ml 240 ml 240 ml IV Total 524 ml 600 ml 1200 ml Output Urine Total 300 ml 900 ml 900 ml Hemodialysis 3000 ml # Bowel Movements 1 Result Diagram: 09/29/16 0543 09/30/16 1035 Objective Remarks GENERAL: Morbidly obese , not in distress SKIN: Warm and dry. Multiple punctate lesions all over entire body CARDIOVASCULAR: Normal rate, irregular rhythm. RESPIRATORY: No accessory muscle use. Clear to auscultation. Breath sounds equal bilaterally. No wheezing GASTROINTESTINAL: Abdomen soft, non-tender, nondistended. No guarding. MUSCULOSKELETAL: Extremities without clubbing, cyanosis, 1+ lower extremity edema. No obvious deformities. Multiple skin abrasions multiple punctate lesions on extremities 4 in multiple stages of healing NEUROLOGICAL: Awake and alert. No focal deficits. Date of Insertion: Sep 25, 2016 Side: Right Location: Internal, Jugular A/P Problem List: (1) Acidosis, metabolic ICD Code: E87.2 Status: Acute (2) Rhabdomyolysis ICD Code: M62.82 Status: Acute (3) Renal failure ICD Code: N19 Status: Acute Assessment and Plan This is a 45-year-old male who presented with generalized weakness, acute renal failure, myoclonus and rhabdomyolysis. Myoclonus -09/25 EEG-abnormalmoderately to severe diffuse disturbance of cerebral function. No epileptiform activity. 09/25 U tox screen-positive for amphetamines , CT brain-no acute abnormality, myoclonus which has since resolved likely secondary to acute renal failure from accumulation of toxic metabolites. Hypoxic respiratory failure, obstructive sleep apnea,? Asthma/COPD -DuoNeb nebs every 6 hours scheduled, 09/27 chest x-ray clear, Budesonide 0.5 mg every 12 hours Neb treatments, decrease prednisone to daily, from then on 10 probably taper faster. -Maintain O2 sat greater than 92%, on room air today, off BiPAP. Pulmonary following. Start incentive spirometry. Hypertension, uncontrolled -09/26 EKG-NSR, continue Norvasc, clonidine, increase metoprolol to 100 mg twice a day Acute renal failure secondary to acute sugar necrosis from rhabdomyolysis -Maintain Gutierrez catheter, good urine output, continue hemodialysis per nephrology, last dialysis was yesterday. Renal ultrasound did not show any obstructive uropathy. CK improving. Next hemodialysis is tomorrow. Multiple electrolyte imbalance-likely secondary to renal failure, continue dialysis per nephrology GI Prophylaxis Protonix DVT Prophylaxis -- SCDs Heparin BID Discharge Planning Discharge home when medically ready, might need home health care. Patient now only taking 20 feet Problem Qualifiers (1) Rhabdomyolysis: Qualified Code: M62.82 - Non-traumatic rhabdomyolysis (2) Renal failure: Qualified Code: N17.9 - Acute renal failure, unspecified acute renal failure type Shilo Rooney MD Oct 01, 2016 10:58
[2016-10-01] MEDS: ACETAMINOPHEN 325 MG TAB PO PRN (11:41)
[2016-10-01] MEDS: DEXT 5%-NACL 0.9% 1000 ML INJ 1,000 ML IV SCH ×2 (13:38→20:04)
--- NOTE | 2016-10-01 16:24 | HHI.NPPN ---
Subjective History of Present Illness 45 year old male with Rhabdomyolysis, ARF Additional Remarks No acute complaints, transferred to medical floor Objective Data Data 09/30/16 10/01/16 19:00 07:00 Intake Total 2280 ml Output Total 3000 ml 1800 ml Balance -3000 ml 480 ml Intake Oral 480 ml IV Total 1800 ml Output Urine Total 1800 ml Hemodialysis 3000 ml # Bowel Movements 1 Vital Signs Date Time Temp Pulse Resp B/P Pulse Ox O2 Delivery O2 Flow Rate FiO2 10/01/16 12:00 97.2 96 18 175/93 93 10/01/16 10:37 93 10/01/16 08:00 98.4 89 17 148/76 92 10/01/16 04:00 97.2 92 17 187/88 95 10/01/16 00:18 94 10/01/16 00:00 97.7 86 18 138/66 95 09/30/16 20:00 97.6 95 16 188/67 93 -: 09/29/16 0543 09/30/16 1035 Physical Exam General Appearance: Well Developed, Well Nourished Neck Neck Exam: Neck Supple Pulmonary Resp Exam: Clear Bilaterally, Breath Sounds Equal Cardiology CV Exam: Regular, Normal Sinus Rhythm Gastrointestinal/Abdomen GI Exam: Soft, Non-Tender, Bowel Sounds Present Extremeties Extremities Exam: No Edema Assessment/Plan Problem List: (1) Renal failure Plan: Patient has acute tubular necrosis due to rhabdomyolysis HD done yesterday with 3L UF. UOP starting to improve. Will plan HD tomorrow, then monitor UOP and creatinine for signs of recovery. (2) Rhabdomyolysis Plan: Due to severe dehydration CK level trending down, still requires HD (3) Hyperkalemia Plan: Due to the acute renal failure resolved with hemodialysis (4) Hyponatremia Plan: Due to renal failure resolved with hemodialysis (5) Hypocalcemia Plan: Corrected with hemodialysis (6) COPD exacerbation Plan: Monitor (7) Acidosis, metabolic Plan: due to ARF resolved with HD Problem Qualifiers (1) Renal failure: Qualified Code: N17.9 - Acute renal failure, unspecified acute renal failure type (2) Rhabdomyolysis: Qualified Code: M62.82 - Non-traumatic rhabdomyolysis Tacho Rachel MD Oct 01, 2016 16:24
[2016-10-01] MEDS: METOPROLOL TARTRATE 100 MG TAB PO SCH (20:03)
[2016-10-02] VITALS: BP 177/74; PULSE 88; RESP 19; TEMP 96; O2SAT 96
[2016-10-02 04:00] VITALS: BP 151/68; PULSE 93; RESP 19; TEMP 96; O2SAT 94
[2016-10-02] MEDS: CHLORHEXIDINE GLUCONATE 2 % 1 PACK (2 CLOTHS) TOP SCH ×2 (04:00→20:27)
[2016-10-02] MEDS: INSULIN ASPART SUPPLEMENTAL SCALE SQ SCH ×4 (05:23→20:25)
[2016-10-02 06:04] LABS: AUTOMATED NEUTROPHIL # 14.4 TH/MM3 (1.8-7.7); BASOPHIL % 0.1 % (0.0-2.0); EOSINOPHIL % 0.1 % (0.0-4.0); HEMATOCRIT 31.3 % (39.0-51.0); HEMO FLAGS DIFF FINAL; LYMPH % 7.4 % (9.0-44.0); LYMPHOCYTE # 1.3 TH/MM3 (1.0-4.8); MEAN CORPUSCULAR HEMOGLOBIN 27.3 PG (27.0-34.0); MEAN CORPUSCULAR HGB CONC 32.1 % (32.0-36.0); MONO % 6.8 % (0.0-8.0); NEUT % 85.6 % (16.0-70.0); PLATELET COUNT 126 TH/MM3 (150-450); RED BLOOD COUNT 3.69 MIL/MM3 (4.50-5.90); RED CELL DISTRIBUTION WIDTH 14.3 % (11.6-17.2); WHITE BLOOD COUNT 16.8 TH/MM3 (4.0-11.0)
[2016-10-02 06:32] LABS: BICARBONATE 22.6 MEQ/L (21.0-32.0); POTASSIUM 3.8 MEQ/L (3.5-5.1)
[2016-10-02 08:00] VITALS: BP 182/79; PULSE 92; RESP 17; TEMP 98; O2SAT 95
[2016-10-02] MEDS: RESP: BUDESONIDE 0.5 MG/2 ML NEB NEB SCH ×2 (08:00→20:00)
[2016-10-02] MEDS ORDERED: predniSONE 20 MG TAB PO SCH (09:00)
[2016-10-02] MEDS: DOCUSATE SODIUM 50 MG/SENNA 8.6 MG TAB PO SCH ×2 (09:00→20:25)
--- NOTE | 2016-10-02 09:24 | HHI.PR ---
Subjective Remarks Follow-up acute renal failure requiring emergent hemodialysis/rhabdomyolysis/ multiple electrolyte abnormalities 10/02/16-patient seen and examined, denies any cramps however only complains of back pain. Denies any chest pain or shortness of breath, no acute event overnight. Good urine output. Heading for hemodialysis this morning. Renal indices trending down Objective Vitals Vital Signs Date Time Temp Pulse Resp B/P Pulse Ox O2 Delivery O2 Flow Rate FiO2 10/02/16 08:00 98.0 92 17 182/79 95 10/02/16 04:00 96.0 93 19 151/68 94 10/02/16 00:00 96.0 88 19 177/74 96 10/01/16 20:00 96.0 99 19 182/84 97 10/01/16 19:21 97 10/01/16 16:00 97.3 93 17 154/72 91 10/01/16 12:00 97.2 96 18 175/93 93 10/01/16 10:37 93 I/O 10/01/16 10/01/16 10/01/16 10/02/16 10/02/16 10/02/16 07:00 15:00 23:00 07:00 15:00 23:00 Intake Total 1440 ml 1607 ml 1320 ml 1060 ml Output Total 900 ml 900 ml 700 ml 1800 ml Balance 540 ml 707 ml 620 ml -740 ml Intake Oral 240 ml 440 ml 120 ml 360 ml IV Total 1200 ml 1167 ml 1200 ml 700 ml Output Urine Total 900 ml 900 ml 700 ml 1800 ml # Bowel Movements 1 0 2 Result Diagram: 10/02/16 0447 10/02/16 0447 Imaging Last Impressions Chest X-Ray 09/28/16 0600 Signed Impressions: Service Date/Time: August 02:58 - CONCLUSION: Lungs are clear. Abhinav Mcdonald MD Abdomen/Pelvis CT 09/25/16 1047 Signed Impressions: Service Date/Time: Monday, September 26, 2016 02:23 - CONCLUSION: 1. No evidence of renal stone or hydronephrosis. 2. Fluid in the subcutaneous tissues of the lateral abdominal wall suggests anasarca. 3. Small infiltrate medial left lower lung. Abhinav Mcdonald MD Renal Ultrasound 09/25/16 0000 Signed Impressions: Service Date/Time: Sunday, September 25, 2016 15:42 - CONCLUSION: 1. Limited exam due to patient's body habitus. 2. No evidence for obstructive uropathy as questioned. Quinton Don MD Objective Remarks GENERAL: NAD and obese patient SKIN: Warm and dry. HEAD: Normocephalic. EYES: No scleral icterus. No injection or drainage. NECK: Supple, trachea midline. No JVD or lymphadenopathy. CARDIOVASCULAR: Regular rate and rhythm without murmurs, gallops, or rubs. RESPIRATORY: Breath sounds equal bilaterally. No accessory muscle use. GASTROINTESTINAL: Abdomen soft, non-tender, nondistended. MUSCULOSKELETAL: No cyanosis, or edema. BACK: Nontender without obvious deformity. No CVA tenderness. Date of Insertion: Sep 25, 2016 Side: Right Location: Internal, Jugular A/P Problem List: (1) Acute renal failure with tubular necrosis ICD Code: N17.0 Status: Acute (2) Acidosis, metabolic ICD Code: E87.2 Status: Acute (3) Rhabdomyolysis ICD Code: M62.82 Status: Acute (4) Renal failure ICD Code: N19 Status: Acute (5) COPD exacerbation ICD Code: J44.1 Status: Acute (6) Hyponatremia ICD Code: E87.1 Status: Acute (7) Hypocalcemia ICD Code: E83.51 Status: Acute (8) Hyperkalemia ICD Code: E87.5 Status: Acute Assessment and Plan 45-year-old man with Acute renal failure with tubular necrosis: 2/2 rhabdomyolysis Currently on hemodialysis per nephrology. HD today 10/02/16 Renal indices trend down, continue to monitor BUN/creatinine Continue with IV fluid hydration Rhabdomyolysis Still requiring HD Monitor CK Metabolic acidosis Secondary to renal failure and now resolved Uncontrolled hypertension-labile BP Increase clonidine to 0.2 mg every 12 hours Continue with Lopressor 100 mg every 12, Norvasc 10 mg daily Hydralazine when necessary Myoclonus EEG abnormal on 09/25/16 However now resolved Not currently on any medication Appreciate input from neurology Hypoxic respiratory failure Obstructive sleep apnea Asthma/COPD Stable Continue with BiPAP when necessary at night Currently on prednisone 40 mg daily, Karla Appreciate input from pulmonary medicine Leukocytosis Secondary to steroid WBC trending down, continue to monitor Thrombocytopenia Monitor CBC Multiple electrolyte abnormalities Management per nephrology GI Prophylaxis Protonix DVT Prophylaxis -- SCDs Heparin BID Problem Qualifiers (1) Rhabdomyolysis: Qualified Code: M62.82 - Non-traumatic rhabdomyolysis (2) Renal failure: Qualified Code: N17.9 - Acute renal failure, unspecified acute renal failure type Al Sawyer MD Oct 02, 2016 09:24
--- NOTE | 2016-10-02 09:50 | HHI.NPPN ---
Subjective History of Present Illness 45 year old male with Rhabdomyolysis, ARF Additional Remarks No acute complaints, transferred to medical floor Objective Data Data 10/01/16 10/02/16 19:00 07:00 Intake Total 1607 ml 2380 ml Output Total 900 ml 2500 ml Balance 707 ml -120 ml Intake Oral 440 ml 480 ml IV Total 1167 ml 1900 ml Output Urine Total 900 ml 2500 ml # Bowel Movements 1 2 Vital Signs Date Time Temp Pulse Resp B/P Pulse Ox O2 Delivery O2 Flow Rate FiO2 10/02/16 08:00 98.0 92 17 182/79 95 10/02/16 04:00 96.0 93 19 151/68 94 10/02/16 00:00 96.0 88 19 177/74 96 10/01/16 20:00 96.0 99 19 182/84 97 10/01/16 19:21 97 10/01/16 16:00 97.3 93 17 154/72 91 10/01/16 12:00 97.2 96 18 175/93 93 10/01/16 10:37 93 -: 10/02/16 0447 10/02/16 0447 Physical Exam General Appearance: Well Developed, Well Nourished Neck Neck Exam: Neck Supple Pulmonary Resp Exam: Clear Bilaterally, Breath Sounds Equal Cardiology CV Exam: Regular, Normal Sinus Rhythm Gastrointestinal/Abdomen GI Exam: Soft, Non-Tender, Bowel Sounds Present Extremeties Extremities Exam: No Edema Assessment/Plan Problem List: (1) Renal failure Plan: Patient has acute tubular necrosis due to rhabdomyolysis HD seen during dialysis UF 3 L UOP starting to improve. Will plan HD wed, then monitor UOP and creatinine for signs of recovery. (2) Rhabdomyolysis Plan: Due to severe dehydration CK level trending down, still requires HD (3) Hyperkalemia Plan: Due to the acute renal failure resolved with hemodialysis (4) Hyponatremia Plan: Due to renal failure resolved with hemodialysis (5) Hypocalcemia Plan: Corrected with hemodialysis (6) COPD exacerbation Plan: Monitor (7) Acidosis, metabolic Plan: due to ARF resolved with HD Problem Qualifiers (1) Renal failure: Qualified Code: N17.9 - Acute renal failure, unspecified acute renal failure type (2) Rhabdomyolysis: Qualified Code: M62.82 - Non-traumatic rhabdomyolysis Axel Anderson MD Oct 02, 2016 09:50
[2016-10-02] MEDS: RESP: ALBUTEROL 2.5 MG/IPRATROPIUM 0.5 MG NEB (SCH) INH ×3 (10:00→20:36)
[2016-10-02] MEDS: HEPARIN SODIUM - IV 10,000 UNITS/10 ML VIAL PRN (10:24)
[2016-10-02] MEDS: GENTAMICIN SULFATE (DIALYSIS USE ONLY) 20 MG/2 ML VIAL IV PRN (10:24)
[2016-10-02] MEDS: cloNIDine HCL 0.1 MG TAB PO PRN ×2 (10:24→13:39)
[2016-10-02] MEDS: PANTOPRAZOLE SOD 40 MG DELAYED RELEASE TAB PO SCH (13:39)
[2016-10-02] MEDS: METOPROLOL TARTRATE 100 MG TAB PO SCH ×2 (13:40→20:26)
[2016-10-02] MEDS: HEPARIN SODIUM - SQ 10,000 UNITS/ML VIAL SQ SCH ×2 (13:41→23:23)
--- NOTE | 2016-10-02 14:02 | HHI.PR ---
Subjective Remarks alert occasional wheeze snores , witnessed apnea Objective Vital Signs Date Time Temp Pulse Resp B/P Pulse Ox O2 Delivery O2 Flow Rate FiO2 10/02/16 08:00 Nasal Cannula 2.00 40 10/02/16 08:00 98.0 92 17 182/79 95 10/02/16 04:00 96.0 93 19 151/68 94 10/02/16 00:00 96.0 88 19 177/74 96 10/01/16 20:00 96.0 99 19 182/84 97 10/01/16 19:21 97 10/01/16 16:00 97.3 93 17 154/72 91 I/O 10/01/16 10/01/16 10/01/16 10/02/16 10/02/16 10/02/16 07:00 15:00 23:00 07:00 15:00 23:00 Intake Total 1440 ml 1607 ml 1320 ml 1060 ml Output Total 900 ml 900 ml 700 ml 1800 ml 3000 ml Balance 540 ml 707 ml 620 ml -740 ml -3000 ml Intake Oral 240 ml 440 ml 120 ml 360 ml IV Total 1200 ml 1167 ml 1200 ml 700 ml Output Urine Total 900 ml 900 ml 700 ml 1800 ml Hemodialysis 3000 ml # Bowel Movements 1 0 2 Result Diagram: 10/02/1644610/02/16446 Objective Remarks GENERAL: SKIN: Warm and dry. HEAD: Atraumatic. Normocephalic. EYES: Pupils equal and round. No scleral icterus. No injection or drainage. ENT: No nasal bleeding or discharge. Mucous membranes pink and moist. NECK: Trachea midline. No JVD. CARDIOVASCULAR: Regular rate and rhythm. RESPIRATORY: No accessory muscle use. Clear to auscultation. Breath sounds equal bilaterally. GASTROINTESTINAL: Abdomen soft, non-tender, nondistended. Hepatic and splenic margins not palpable. MUSCULOSKELETAL: Extremities without clubbing, cyanosis, or edema. No obvious deformities. NEUROLOGICAL: Awake and alert. No obvious cranial nerve deficits. Motor grossly within normal limits. Five out of 5 muscle strength in the arms and legs. Normal speech. PSYCHIATRIC: Appropriate mood and affect; insight and judgment normal. Assessment and Plan Assessment and Plan ass renal failure ? asthma probable LANCE PLAN O2 as needed bronchodilator therapy BIPAP 03/09 WHILE SLEEPING taper po prednisone Spencer Palmer MD Oct 02, 2016 14:02
[2016-10-02] MEDS: DEXT 5%-NACL 0.9% 1000 ML INJ 1,000 ML IV SCH ×2 (15:00→23:23)
[2016-10-02 16:00] VITALS: BP 134/63; PULSE 83; RESP 16; TEMP 97.7; O2SAT 93
[2016-10-02 20:00] VITALS: BP 168/65; PULSE 94; RESP 20; TEMP 97.8; O2SAT 97
[2016-10-02] MEDS: cloNIDine HCL 0.2 MG TAB PO SCH (20:26)
[2016-10-02 20:40] VITALS: O2SAT 98
[2016-10-03] VITALS (7 sets, daily range): BP systolic 135–144; BP diastolic 63–67; PULSE 84–95; RESP 19–20; TEMP 96.3–98.8; O2SAT 94–97
[2016-10-03] MEDS: RESP: ALBUTEROL 2.5 MG/IPRATROPIUM 0.5 MG NEB (SCH) INH ×2 (03:56→08:21)
[2016-10-03] MEDS: INSULIN ASPART SUPPLEMENTAL SCALE SQ SCH ×4 (05:40→20:52)
[2016-10-03 06:46] LABS: AUTOMATED NEUTROPHIL # 12.7 TH/MM3 (1.8-7.7); EOSINOPHIL % 0.2 % (0.0-4.0); HEMO FLAGS DIFF FINAL; LYMPH % 4.9 % (9.0-44.0); LYMPHOCYTE # 0.7 TH/MM3 (1.0-4.8); MEAN CELL VOLUME 83.9 FL (80.0-100.0); MEAN CORPUSCULAR HEMOGLOBIN 27.8 PG (27.0-34.0); MEAN CORPUSCULAR HGB CONC 33.1 % (32.0-36.0); MONO % 7.5 % (0.0-8.0); NEUT % 87.4 % (16.0-70.0); PLATELET COUNT 129 TH/MM3 (150-450); RED BLOOD COUNT 3.33 MIL/MM3 (4.50-5.90); RED CELL DISTRIBUTION WIDTH 13.9 % (11.6-17.2); WHITE BLOOD COUNT 14.6 TH/MM3 (4.0-11.0)
[2016-10-03 07:29] LABS: BICARBONATE 27.3 MEQ/L (21.0-32.0); POTASSIUM 3.8 MEQ/L (3.5-5.1)
[2016-10-03] MEDS: RESP: BUDESONIDE 0.5 MG/2 ML NEB NEB SCH ×3 (08:21→19:57)
[2016-10-03] MEDS: PANTOPRAZOLE SOD 40 MG DELAYED RELEASE TAB PO SCH (08:27)
[2016-10-03] MEDS: DOCUSATE SODIUM 50 MG/SENNA 8.6 MG TAB PO SCH ×2 (08:27→20:52)
[2016-10-03] MEDS: cloNIDine HCL 0.2 MG TAB PO SCH ×2 (08:28→20:52)
[2016-10-03] MEDS: predniSONE 20 MG TAB PO SCH (08:28)
[2016-10-03] MEDS: METOPROLOL TARTRATE 100 MG TAB PO SCH ×2 (08:28→20:52)
--- NOTE | 2016-10-03 08:59 | HHI.PR ---
Subjective Remarks Follow-up acute renal failure requiring emergent hemodialysis/rhabdomyolysis/ multiple electrolyte abnormalities 10/02/16-patient seen and examined, denies any cramps however only complains of back pain. Denies any chest pain or shortness of breath, no acute event overnight. Good urine output. Heading for hemodialysis this morning. Renal indices trending down 10/03/16-patient seen and examined, he had a 3 L fluid removed from dialysis yesterday. Denies any chest pain or shortness of breath. Plan for HD again today. Objective Vitals Vital Signs Date Time Temp Pulse Resp B/P Pulse Ox O2 Delivery O2 Flow Rate FiO2 10/03/16 08:23 94 21 10/03/16 08:00 96.9 84 20 137/63 97 10/03/16 00:00 98.8 84 20 144/64 95 10/02/16 20:40 98 21 10/02/16 20:00 97.8 94 20 168/65 97 10/02/16 16:00 97.7 83 16 134/63 93 I/O 10/02/16 10/02/16 10/02/16 10/03/16 10/03/16 10/03/16 07:00 15:00 23:00 07:00 15:00 23:00 Intake Total 1060 ml 440 ml 1010 ml 610 ml 120 ml Output Total 1800 ml 4000 ml Balance -740 ml -3560 ml 1010 ml 610 ml 120 ml Intake Oral 360 ml 440 ml 360 ml 120 ml IV Total 700 ml 650 ml 610 ml Output Urine Total 1800 ml 1000 ml Hemodialysis 3000 ml # Voids 2 # Bowel Movements 2 3 1 Result Diagram: 10/03/16 0547 10/03/16 0547 Imaging Last Impressions Chest X-Ray 09/28/16 0600 Signed Impressions: Service Date/Time: August 02:58 - CONCLUSION: Lungs are clear. Abhinav Mcdonald MD Abdomen/Pelvis CT 09/25/16 1047 Signed Impressions: Service Date/Time: Monday, September 26, 2016 02:23 - CONCLUSION: 1. No evidence of renal stone or hydronephrosis. 2. Fluid in the subcutaneous tissues of the lateral abdominal wall suggests anasarca. 3. Small infiltrate medial left lower lung. Abhinav Mcdonald MD Renal Ultrasound 09/25/16 0000 Signed Impressions: Service Date/Time: Sunday, September 25, 2016 15:42 - CONCLUSION: 1. Limited exam due to patient's body habitus. 2. No evidence for obstructive uropathy as questioned. Quinton Don MD Objective Remarks GENERAL: NAD and obese patient SKIN: Warm and dry. HEAD: Normocephalic. EYES: No scleral icterus. No injection or drainage. NECK: Supple, trachea midline. No JVD or lymphadenopathy. CARDIOVASCULAR: Regular rate and rhythm without murmurs, gallops, or rubs. RESPIRATORY: Breath sounds equal bilaterally. No accessory muscle use. GASTROINTESTINAL: Abdomen soft, non-tender, nondistended. MUSCULOSKELETAL: No cyanosis, or edema. BACK: Nontender without obvious deformity. No CVA tenderness. Date of Insertion: Sep 25, 2016 Side: Right Location: Internal, Jugular A/P Problem List: (1) Acute renal failure with tubular necrosis ICD Code: N17.0 Status: Acute (2) Acidosis, metabolic ICD Code: E87.2 Status: Acute (3) Rhabdomyolysis ICD Code: M62.82 Status: Acute (4) Renal failure ICD Code: N19 Status: Acute (5) COPD exacerbation ICD Code: J44.1 Status: Acute (6) Hyponatremia ICD Code: E87.1 Status: Acute (7) Hypocalcemia ICD Code: E83.51 Status: Acute (8) Hyperkalemia ICD Code: E87.5 Status: Acute Assessment and Plan 45-year-old man with Acute renal failure with tubular necrosis: 2/2 rhabdomyolysis Currently on hemodialysis per nephrology. 3 L of fluid removed yesterday 06/16 HD today 10/03/16 Renal indices trend down, continue to monitor BUN/creatinine Continue with IV fluid hydration Rhabdomyolysis Still requiring HD Monitor CK Metabolic acidosis Secondary to renal failure and now resolved Uncontrolled hypertension-BP improving Clonidine 0.2 mg every 12 hours Continue with Lopressor 100 mg every 12, Norvasc 10 mg daily Hydralazine when necessary Myoclonus EEG abnormal on 09/25/16 However now resolved Not currently on any medication Appreciate input from neurology Hypoxic respiratory failure Obstructive sleep apnea Asthma/COPD Stable Continue with BiPAP when necessary at night Currently on prednisone 20 mg daily, Karla Appreciate input from pulmonary medicine Leukocytosis Secondary to steroid WBC trending down, continue to monitor Thrombocytopenia Monitor CBC Multiple electrolyte abnormalities Management per nephrology GI Prophylaxis Protonix DVT Prophylaxis -- SCDs Heparin BID Problem Qualifiers (1) Rhabdomyolysis: Qualified Code: M62.82 - Non-traumatic rhabdomyolysis (2) Renal failure: Qualified Code: N17.9 - Acute renal failure, unspecified acute renal failure type Al Sawyer MD Oct 03, 2016 08:59
[2016-10-03 09:02] LABS: CKMB 12.1 NG/ML (0.5-3.6)
[2016-10-03] MEDS: HEPARIN SODIUM - IV 10,000 UNITS/10 ML VIAL PRN (10:15)
[2016-10-03] MEDS: GENTAMICIN SULFATE (DIALYSIS USE ONLY) 20 MG/2 ML VIAL IV PRN (10:16)
[2016-10-03] MEDS: HEPARIN SODIUM - SQ 10,000 UNITS/ML VIAL SQ SCH ×2 (12:00→23:59)
[2016-10-03] MEDS: DEXT 5%-NACL 0.9% 1000 ML INJ 1,000 ML IV SCH (14:50)
--- NOTE | 2016-10-03 15:39 | HHI.NPPN ---
Subjective History of Present Illness 45 year old male with Rhabdomyolysis, ARF Additional Remarks No acute complaints Objective Data Data 10/02/16 10/03/16 19:00 07:00 Intake Total 440 ml 1620 ml Output Total 4000 ml Balance -3560 ml 1620 ml Intake Oral 440 ml 360 ml IV Total 1260 ml Output Urine Total 1000 ml Hemodialysis 3000 ml # Voids 2 # Bowel Movements 3 1 Vital Signs Date Time Temp Pulse Resp B/P Pulse Ox O2 Delivery O2 Flow Rate FiO2 10/03/16 12:45 98.4 84 19 143/67 96 10/03/16 08:23 94 21 10/03/16 08:00 96.9 84 20 137/63 97 10/03/16 00:00 98.8 84 20 144/64 95 10/02/16 20:40 98 21 10/02/16 20:00 97.8 94 20 168/65 97 10/02/16 16:00 97.7 83 16 134/63 93 -: 10/03/16 0547 10/03/16 0547 Physical Exam General Appearance: Well Developed, Well Nourished Neck Neck Exam: Neck Supple Pulmonary Resp Exam: Clear Bilaterally, Breath Sounds Equal Cardiology CV Exam: Regular, Normal Sinus Rhythm Gastrointestinal/Abdomen GI Exam: Soft, Non-Tender, Bowel Sounds Present Extremeties Extremities Exam: No Edema Assessment/Plan Problem List: (1) Renal failure Plan: Patient has acute tubular necrosis due to rhabdomyolysis on hemodialysis UOP starting to improve. Will plan HD Wed, then monitor UOP and creatinine for signs of recovery. (2) Rhabdomyolysis Plan: Due to severe dehydration CK level trending down, still requires HD (3) COPD exacerbation Plan: Monitor Problem Qualifiers (1) Renal failure: Qualified Code: N17.9 - Acute renal failure, unspecified acute renal failure type (2) Rhabdomyolysis: Qualified Code: M62.82 - Non-traumatic rhabdomyolysis Axel Anderson MD Oct 03, 2016 15:39
[2016-10-03] MEDS ORDERED: ACETAMINOPHEN/HYDROcodone 325 MG/5 MG TAB PO ONE (17:15)
[2016-10-03] MEDS: ACETAMINOPHEN 325 MG TAB PO PRN (20:51)
[2016-10-04] VITALS (8 sets, daily range): BP systolic 135–196; BP diastolic 61–103; PULSE 75–89; RESP 17–20; TEMP 96–98.1; O2SAT 94–97
[2016-10-04] MEDS ORDERED: ACETAMINOPHEN/HYDROcodone 325 MG/5 MG TAB PO ONE (00:15)
[2016-10-04] MEDS: DEXT 5%-NACL 0.9% 1000 ML INJ 1,000 ML IV SCH ×2 (00:25→13:49)
[2016-10-04] MEDS: CHLORHEXIDINE GLUCONATE 2 % 1 PACK (2 CLOTHS) TOP SCH (04:00)
[2016-10-04] MEDS: INSULIN ASPART SUPPLEMENTAL SCALE SQ SCH ×4 (06:01→21:00)
[2016-10-04 07:19] LABS: BICARBONATE 28.4 MEQ/L (21.0-32.0)
[2016-10-04 07:29] LABS: POTASSIUM 4.1 MEQ/L (3.5-5.1)
[2016-10-04] MEDS: RESP: BUDESONIDE 0.5 MG/2 ML NEB NEB SCH ×2 (08:00→20:00)
[2016-10-04] MEDS: DOCUSATE SODIUM 50 MG/SENNA 8.6 MG TAB PO SCH ×2 (08:09→20:18)
[2016-10-04] MEDS: cloNIDine HCL 0.2 MG TAB PO SCH ×2 (08:09→20:18)
[2016-10-04] MEDS: PANTOPRAZOLE SOD 40 MG DELAYED RELEASE TAB PO SCH (08:09)
[2016-10-04] MEDS: METOPROLOL TARTRATE 100 MG TAB PO SCH ×2 (08:09→20:18)
[2016-10-04] MEDS: predniSONE 20 MG TAB PO SCH (08:09)
--- NOTE | 2016-10-04 10:20 | HHI.PR ---
Subjective Remarks Follow-up acute renal failure requiring emergent hemodialysis/rhabdomyolysis/ multiple electrolyte abnormalities 10/02/16-patient seen and examined, denies any cramps however only complains of back pain. Denies any chest pain or shortness of breath, no acute event overnight. Good urine output. Heading for hemodialysis this morning. Renal indices trending down 10/03/16-patient seen and examined, he had a 3 L fluid removed from dialysis yesterday. Denies any chest pain or shortness of breath. Plan for HD again today. 10/04/16-patient seen and examined, and back to hemodialysis today. No acute event overnight. Was given oral pain meds 1 yesterday secondary to back pain however none today. Objective Vitals Vital Signs Date Time Temp Pulse Resp B/P Pulse Ox O2 Delivery O2 Flow Rate FiO2 10/04/16 09:00 97 21 10/04/16 08:00 96.8 89 17 188/80 96 10/04/16 00:00 96.0 75 19 135/61 97 10/03/16 22:24 22 10/03/16 20:30 5.00 10/03/16 20:00 96.3 89 20 135/63 96 10/03/16 19:57 95 21 10/03/16 16:00 98.2 95 20 143/65 95 10/03/16 12:45 98.4 84 19 143/67 96 I/O 10/03/16 10/03/16 10/03/16 10/04/16 10/04/16 10/04/16 07:00 15:00 23:00 07:00 15:00 23:00 Intake Total 610 ml 1080 ml 360 ml 1040 ml Output Total 3850 ml Balance 610 ml -2770 ml 360 ml 1040 ml Intake Oral 1080 ml 360 ml 360 ml IV Total 610 ml 0 ml 680 ml Output Urine Total 350 ml Hemodialysis 3500 ml # Voids 2 2 # Bowel Movements 1 0 0 Result Diagram: 10/03/16 0547 10/04/16 0620 Objective Remarks GENERAL: NAD and obese patient SKIN: Warm and dry. HEAD: Normocephalic. EYES: No scleral icterus. No injection or drainage. NECK: Supple, trachea midline. No JVD or lymphadenopathy. CARDIOVASCULAR: Regular rate and rhythm without murmurs, gallops, or rubs. RESPIRATORY: Breath sounds equal bilaterally. No accessory muscle use. GASTROINTESTINAL: Abdomen soft, non-tender, nondistended. MUSCULOSKELETAL: No cyanosis, or edema. BACK: Nontender without obvious deformity. No CVA tenderness. Date of Insertion: Sep 25, 2016 Side: Right Location: Internal, Jugular A/P Problem List: (1) Acute renal failure with tubular necrosis ICD Code: N17.0 Status: Acute (2) Acidosis, metabolic ICD Code: E87.2 Status: Acute (3) Rhabdomyolysis ICD Code: M62.82 Status: Acute (4) Renal failure ICD Code: N19 Status: Acute (5) COPD exacerbation ICD Code: J44.1 Status: Acute (6) Hyponatremia ICD Code: E87.1 Status: Acute (7) Hypocalcemia ICD Code: E83.51 Status: Acute (8) Hyperkalemia ICD Code: E87.5 Status: Acute Assessment and Plan 45-year-old man with Acute renal failure with tubular necrosis: 2/2 rhabdomyolysis Currently on hemodialysis per nephrology. Heading back to hemodialysis today 10/04/16 Renal indices trend down, continue to monitor BUN/creatinine Continue with IV fluid hydration per nephrology Rhabdomyolysis Still requiring HD Monitor CK Metabolic acidosis Secondary to renal failure and now resolved Uncontrolled hypertension-BP improving Clonidine 0.2 mg every 12 hours Continue with Lopressor 100 mg every 12, Norvasc 10 mg daily Hydralazine when necessary Myoclonus EEG abnormal on 09/25/16 However now resolved Not currently on any medication Appreciate input from neurology Hypoxic respiratory failure-resolved Obstructive sleep apnea Asthma/COPD Stable Continue with BiPAP when necessary at night Currently on prednisone 20 mg daily, DuoNeb Appreciate input from pulmonary medicine Leukocytosis Secondary to steroid WBC trending down, continue to monitor Thrombocytopenia Monitor CBC Multiple electrolyte abnormalities Management per nephrology GI Prophylaxis Protonix DVT Prophylaxis -- SCDs Heparin BID Problem Qualifiers (1) Rhabdomyolysis: Qualified Code: M62.82 - Non-traumatic rhabdomyolysis (2) Renal failure: Qualified Code: N17.9 - Acute renal failure, unspecified acute renal failure type Al Sawyer MD Oct 04, 2016 10:19
--- NOTE | 2016-10-04 11:09 | HHI.NPPN ---
Subjective History of Present Illness 45 year old male with Rhabdomyolysis, ARF Additional Remarks No acute complaints Objective Data Data 10/03/16 10/04/16 19:00 07:00 Intake Total 1080 ml 1400 ml Output Total 3850 ml Balance -2770 ml 1400 ml Intake Oral 1080 ml 720 ml IV Total 0 ml 680 ml Output Urine Total 350 ml Hemodialysis 3500 ml # Voids 4 # Bowel Movements 1 0 Vital Signs Date Time Temp Pulse Resp B/P Pulse Ox O2 Delivery O2 Flow Rate FiO2 10/04/16 09:00 97 21 10/04/16 08:00 96.8 89 17 188/80 96 10/04/16 00:00 96.0 75 19 135/61 97 10/03/16 22:24 22 10/03/16 20:30 5.00 10/03/16 20:00 96.3 89 20 135/63 96 10/03/16 19:57 95 21 10/03/16 16:00 98.2 95 20 143/65 95 10/03/16 12:45 98.4 84 19 143/67 96 -: 10/03/16 0547 10/04/16 0620 Physical Exam General Appearance: Well Developed, Well Nourished Neck Neck Exam: Neck Supple Pulmonary Resp Exam: Clear Bilaterally, Breath Sounds Equal Cardiology CV Exam: Regular, Normal Sinus Rhythm Gastrointestinal/Abdomen GI Exam: Soft, Non-Tender, Bowel Sounds Present Extremeties Extremities Exam: No Edema Assessment/Plan Problem List: (1) Renal failure Plan: Patient has acute tubular necrosis due to rhabdomyolysis HD seen during dialysis UF 2 L UOP starting to improve. Cr declining may hold dialysis if improvement noted by Sunday (2) Rhabdomyolysis Plan: Due to severe dehydration CK level trending down, still requires HD (3) Hyperkalemia Plan: Due to the acute renal failure resolved with hemodialysis (4) Hyponatremia Plan: Due to renal failure resolved with hemodialysis (5) Hypocalcemia Plan: Corrected with hemodialysis (6) COPD exacerbation Plan: Monitor (7) Acidosis, metabolic Plan: due to ARF resolved with HD Problem Qualifiers (1) Renal failure: Qualified Code: N17.9 - Acute renal failure, unspecified acute renal failure type (2) Rhabdomyolysis: Qualified Code: M62.82 - Non-traumatic rhabdomyolysis Axel Anderson MD Oct 04, 2016 11:09
[2016-10-04] MEDS: GENTAMICIN SULFATE (DIALYSIS USE ONLY) 20 MG/2 ML VIAL IV PRN (13:07)
[2016-10-04] MEDS: HEPARIN SODIUM - IV 10,000 UNITS/10 ML VIAL PRN (13:08)
[2016-10-04] MEDS: HEPARIN SODIUM - SQ 10,000 UNITS/ML VIAL SQ SCH (13:48)
--- NOTE | 2016-10-04 16:09 | HHI.PR ---
Subjective Remarks alert no SOB Objective Vital Signs Date Time Temp Pulse Resp B/P Pulse Ox O2 Delivery O2 Flow Rate FiO2 10/04/16 09:00 97 21 10/04/16 08:00 96.8 89 17 188/80 96 10/04/16 00:00 96.0 75 19 135/61 97 10/03/16 22:24 22 10/03/16 20:30 5.00 10/03/16 20:00 96.3 89 20 135/63 96 10/03/16 19:57 95 21 I/O 10/03/16 10/03/16 10/03/16 10/04/16 10/04/16 10/04/16 07:00 15:00 23:00 07:00 15:00 23:00 Intake Total 610 ml 1080 ml 360 ml 1040 ml 290 ml Output Total 3850 ml 2275 ml Balance 610 ml -2770 ml 360 ml 1040 ml -1985 ml Intake Oral 1080 ml 360 ml 360 ml IV Total 610 ml 0 ml 680 ml 290 ml Output Urine Total 350 ml 275 ml Hemodialysis 3500 ml 2000 ml # Voids 2 2 1 # Bowel Movements 1 0 0 Result Diagram: 10/03/16 0547 10/04/16 0620 Objective Remarks GENERAL: SKIN: Warm and dry. HEAD: Atraumatic. Normocephalic. EYES: Pupils equal and round. No scleral icterus. No injection or drainage. ENT: No nasal bleeding or discharge. Mucous membranes pink and moist. NECK: Trachea midline. No JVD. CARDIOVASCULAR: Regular rate and rhythm. RESPIRATORY: No accessory muscle use. Clear to auscultation. Breath sounds equal bilaterally. GASTROINTESTINAL: Abdomen soft, non-tender, nondistended. Hepatic and splenic margins not palpable. MUSCULOSKELETAL: Extremities without clubbing, cyanosis, or edema. No obvious deformities. NEUROLOGICAL: Awake and alert. No obvious cranial nerve deficits. Motor grossly within normal limits. Five out of 5 muscle strength in the arms and legs. Normal speech. PSYCHIATRIC: Appropriate mood and affect; insight and judgment normal. Assessment and Plan Assessment and Plan ass renal failure ? asthma probable LANCE PLAN O2 as needed bronchodilator therapy BIPAP 12/8 WHILE SLEEPING taper po prednisone Spencer Palmer MD Oct 04, 2016 16:09
[2016-10-04] MEDS: cloNIDine HCL 0.1 MG TAB PO PRN (17:22)
[2016-10-05] VITALS (7 sets, daily range): BP systolic 137–187; BP diastolic 63–88; PULSE 75–91; RESP 18–20; TEMP 96.2–98.4; O2SAT 94–98
[2016-10-05] MEDS: HEPARIN SODIUM - SQ 10,000 UNITS/ML VIAL SQ SCH ×3 (00:04→23:39)
[2016-10-05] MEDS: DEXT 5%-NACL 0.9% 1000 ML INJ 1,000 ML IV SCH ×3 (00:07→23:41)
[2016-10-05] MEDS: CHLORHEXIDINE GLUCONATE 2 % 1 PACK (2 CLOTHS) TOP SCH (04:00)
[2016-10-05] MEDS: INSULIN ASPART SUPPLEMENTAL SCALE SQ SCH ×4 (05:29→21:00)
[2016-10-05 05:44] LABS: AUTOMATED NEUTROPHIL # 9.7 TH/MM3 (1.8-7.7); BASOPHIL % 0.1 % (0.0-2.0); EOSINOPHIL # 0.1 TH/MM3 (0-0.4); EOSINOPHIL % 0.8 % (0.0-4.0); HEMATOCRIT 29.7 % (39.0-51.0); HEMO FLAGS DIFF FINAL; LYMPH % 11.1 % (9.0-44.0); LYMPHOCYTE # 1.4 TH/MM3 (1.0-4.8); MEAN CELL VOLUME 84.9 FL (80.0-100.0); MEAN CORPUSCULAR HEMOGLOBIN 27.7 PG (27.0-34.0); MEAN CORPUSCULAR HGB CONC 32.6 % (32.0-36.0); MONO % 10.2 % (0.0-8.0); NEUT % 77.8 % (16.0-70.0); PLATELET COUNT 179 TH/MM3 (150-450); RED CELL DISTRIBUTION WIDTH 14.1 % (11.6-17.2); WHITE BLOOD COUNT 12.4 TH/MM3 (4.0-11.0)
[2016-10-05 06:03] LABS: BICARBONATE 32.2 MEQ/L (21.0-32.0)
[2016-10-05] MEDS: cloNIDine HCL 0.2 MG TAB PO SCH ×2 (09:00→21:00)
[2016-10-05] MEDS: DOCUSATE SODIUM 50 MG/SENNA 8.6 MG TAB PO SCH ×2 (09:00→21:00)
[2016-10-05] MEDS: METOPROLOL TARTRATE 100 MG TAB PO SCH ×2 (09:11→21:00)
[2016-10-05] MEDS: PANTOPRAZOLE SOD 40 MG DELAYED RELEASE TAB PO SCH (09:11)
[2016-10-05] MEDS: predniSONE 20 MG TAB PO SCH (09:11)
--- NOTE | 2016-10-05 10:16 | HHI.PR ---
Subjective Remarks Follow-up acute renal failure requiring emergent hemodialysis/rhabdomyolysis/ multiple electrolyte abnormalities 10/02/16-patient seen and examined, denies any cramps however only complains of back pain. Denies any chest pain or shortness of breath, no acute event overnight. Good urine output. Heading for hemodialysis this morning. Renal indices trending down 10/03/16-patient seen and examined, he had a 3 L fluid removed from dialysis yesterday. Denies any chest pain or shortness of breath. Plan for HD again today. 10/04/16-patient seen and examined, and back to hemodialysis today. No acute event overnight. Was given oral pain meds 1 yesterday secondary to back pain however none today. 10/05/16-patient seen and examined, breathing better and denies any shortness of breath. He had hemodialysis yesterday. Renal indices trending down Objective Vitals Vital Signs Date Time Temp Pulse Resp B/P Pulse Ox O2 Delivery O2 Flow Rate FiO2 10/05/16 08:00 96.5 84 18 172/84 94 10/05/16 07:23 Room Air 10/05/16 04:13 96.2 83 18 148/71 95 10/05/16 00:00 98.4 75 19 137/63 96 10/04/16 22:00 96 21 10/04/16 20:23 Room Air 10/04/16 20:00 98.1 87 20 174/84 94 10/04/16 18:22 89 144/86 10/04/16 17:00 190/100 10/04/16 15:00 97.0 75 17 196/103 97 I/O 10/04/16 10/04/16 10/04/16 10/05/16 10/05/16 10/05/16 07:00 15:00 23:00 07:00 15:00 23:00 Intake Total 1040 ml 290 ml 1662 ml 360 ml 84 ml Output Total 2275 ml 200 ml Balance 1040 ml -1985 ml 1462 ml 360 ml 84 ml Intake Oral 360 ml 600 ml 360 ml IV Total 680 ml 290 ml 1062 ml 84 ml Output Urine Total 275 ml 200 ml Hemodialysis 2000 ml # Voids 2 1 3 2 # Bowel Movements 0 0 1 Result Diagram: 10/05/16 0459 10/05/16 0459 Objective Remarks GENERAL: NAD and obese patient SKIN: Warm and dry. HEAD: Normocephalic. EYES: No scleral icterus. No injection or drainage. NECK: Supple, trachea midline. No JVD or lymphadenopathy. CARDIOVASCULAR: Regular rate and rhythm without murmurs, gallops, or rubs. RESPIRATORY: Breath sounds equal bilaterally. No accessory muscle use. GASTROINTESTINAL: Abdomen soft, non-tender, nondistended. MUSCULOSKELETAL: No cyanosis, or edema. BACK: Nontender without obvious deformity. No CVA tenderness. Date of Insertion: Sep 25, 2016 Side: Right Location: Internal, Jugular A/P Problem List: (1) Acute renal failure with tubular necrosis ICD Code: N17.0 Status: Acute (2) Acidosis, metabolic ICD Code: E87.2 Status: Acute (3) Rhabdomyolysis ICD Code: M62.82 Status: Acute (4) Renal failure ICD Code: N19 Status: Acute (5) COPD exacerbation ICD Code: J44.1 Status: Acute (6) Hyponatremia ICD Code: E87.1 Status: Acute (7) Hypocalcemia ICD Code: E83.51 Status: Acute (8) Hyperkalemia ICD Code: E87.5 Status: Acute Assessment and Plan 45-year-old man with Acute renal failure with tubular necrosis: 2/2 rhabdomyolysis Currently on hemodialysis per nephrology. Patient now with significant improving renal function therefore nephrology to hold hemodialysis until Sunday , 10/06/16 Renal indices trend down, continue to monitor BUN/creatinine Continue with IV fluid hydration per nephrology Rhabdomyolysis Still requiring HD Monitor CK Metabolic acidosis Secondary to renal failure and now resolved Uncontrolled hypertension Clonidine 0.2 mg every 12 hours Continue with Lopressor 100 mg every 12, Norvasc 10 mg daily Hydralazine when necessary Myoclonus-resolved EEG abnormal on 09/25/16 Not currently on any medication Appreciate input from neurology who signed off Hypoxic respiratory failure-resolved Obstructive sleep apnea Asthma/COPD Stable Continue with BiPAP when necessary at night Currently on prednisone 20 mg daily, Karla Appreciate input from pulmonary medicine Leukocytosis Secondary to steroid WBC trending down, continue to monitor Thrombocytopenia Monitor CBC Multiple electrolyte abnormalities Management per nephrology GI Prophylaxis Protonix DVT Prophylaxis -- SCDs Heparin BID Problem Qualifiers (1) Rhabdomyolysis: Qualified Code: M62.82 - Non-traumatic rhabdomyolysis (2) Renal failure: Qualified Code: N17.9 - Acute renal failure, unspecified acute renal failure type Al Sawyer MD Oct 05, 2016 10:16
[2016-10-05] MEDS: hydrALAZINE HCL 25 MG TAB PO PRN (13:12)
--- NOTE | 2016-10-05 14:09 | HHI.NPPN ---
Subjective History of Present Illness 45 year old male with Rhabdomyolysis, ARF Additional Remarks No acute complaints Objective Data Data 10/04/16 10/05/16 19:00 07:00 Intake Total 290 ml 2022 ml Output Total 2475 ml Balance -2185 ml 2022 ml Intake Oral 960 ml IV Total 290 ml 1062 ml Output Urine Total 475 ml Hemodialysis 2000 ml # Voids 1 5 # Bowel Movements 1 Vital Signs Date Time Temp Pulse Resp B/P Pulse Ox O2 Delivery O2 Flow Rate FiO2 10/05/16 12:00 98.3 75 19 179/83 94 10/05/16 08:00 96.5 84 18 172/84 94 10/05/16 07:23 Room Air 10/05/16 04:13 96.2 83 18 148/71 95 10/05/16 00:00 98.4 75 19 137/63 96 10/04/16 22:00 96 21 10/04/16 20:23 Room Air 10/04/16 20:00 98.1 87 20 174/84 94 10/04/16 18:22 89 144/86 10/04/16 17:00 190/100 10/04/16 15:00 97.0 75 17 196/103 97 -: 10/05/16 0459 10/05/16 0459 Physical Exam General Appearance: Well Developed, Well Nourished Neck Neck Exam: Neck Supple Pulmonary Resp Exam: Clear Bilaterally, Breath Sounds Equal Cardiology CV Exam: Regular, Normal Sinus Rhythm Gastrointestinal/Abdomen GI Exam: Soft, Non-Tender, Bowel Sounds Present Extremeties Extremities Exam: No Edema Assessment/Plan Problem List: (1) Renal failure Plan: Patient has acute tubular necrosis due to rhabdomyolysis HD on hold UOP starting to improve. Cr declining follow BMP Possible dc plans with removal of Vascath for tomorrow if his creatinine continues to improve (2) Rhabdomyolysis Plan: Due to severe dehydration CK level trending down, still requires HD (3) Hyperkalemia Plan: Due to the acute renal failure resolved with hemodialysis (4) Hyponatremia Plan: Due to renal failure resolved with hemodialysis (5) Hypocalcemia Plan: Corrected with hemodialysis (6) COPD exacerbation Plan: Monitor (7) Acidosis, metabolic Plan: due to ARF resolved with HD Problem Qualifiers (1) Renal failure: Qualified Code: N17.9 - Acute renal failure, unspecified acute renal failure type (2) Rhabdomyolysis: Qualified Code: M62.82 - Non-traumatic rhabdomyolysis Axel Anderson MD Oct 05, 2016 14:09
--- NOTE | 2016-10-05 15:20 | HHI.PR ---
Subjective Remarks alert no SOB Objective Vital Signs Date Time Temp Pulse Resp B/P Pulse Ox O2 Delivery O2 Flow Rate FiO2 10/05/16 12:00 98.3 75 19 179/83 94 10/05/16 08:00 96.5 84 18 172/84 94 10/05/16 07:23 Room Air 10/05/16 04:13 96.2 83 18 148/71 95 10/05/16 00:00 98.4 75 19 137/63 96 10/04/16 22:00 96 21 10/04/16 20:23 Room Air 10/04/16 20:00 98.1 87 20 174/84 94 10/04/16 18:22 89 144/86 10/04/16 17:00 190/100 I/O 10/04/16 10/04/16 10/04/16 10/05/16 10/05/16 10/05/16 07:00 15:00 23:00 07:00 15:00 23:00 Intake Total 1040 ml 290 ml 1662 ml 360 ml 1600 ml Output Total 2275 ml 200 ml 600 ml Balance 1040 ml -1985 ml 1462 ml 360 ml 1000 ml Intake Oral 360 ml 600 ml 360 ml 956 ml IV Total 680 ml 290 ml 1062 ml 644 ml Output Urine Total 275 ml 200 ml 600 ml Hemodialysis 2000 ml # Voids 2 1 3 2 # Bowel Movements 0 0 1 1 Result Diagram: 10/05/16 0459 10/05/16 0459 Objective Remarks GENERAL: SKIN: Warm and dry. HEAD: Atraumatic. Normocephalic. EYES: Pupils equal and round. No scleral icterus. No injection or drainage. ENT: No nasal bleeding or discharge. Mucous membranes pink and moist. NECK: Trachea midline. No JVD. CARDIOVASCULAR: Regular rate and rhythm. RESPIRATORY: No accessory muscle use. Clear to auscultation. Breath sounds equal bilaterally. GASTROINTESTINAL: Abdomen soft, non-tender, nondistended. Hepatic and splenic margins not palpable. MUSCULOSKELETAL: Extremities without clubbing, cyanosis, or edema. No obvious deformities. NEUROLOGICAL: Awake and alert. No obvious cranial nerve deficits. Motor grossly within normal limits. Five out of 5 muscle strength in the arms and legs. Normal speech. PSYCHIATRIC: Appropriate mood and affect; insight and judgment normal. Assessment and Plan Assessment and Plan ass renal failure ? asthma probable LANCE PLAN O2 as needed bronchodilator therapy BIPAP 03/09 WHILE SLEEPING Spencer Palmer MD Oct 05, 2016 15:20
[2016-10-05] MEDS: RESP: BUDESONIDE 0.5 MG/2 ML NEB NEB SCH (20:00)
[2016-10-05 21:32] LABS: BACTERIA, URINE OCC /hpf; BLOOD, URINE LARGE (NEG); COMMENT (UR) CULTURE INDICATED; CULTURE IF INDICATED CULTURE INDICATED; GLUCOSE,URINE NEG (NEG); KETONE, URINE NEG (NEG); NITRITE,URINE NEG (NEG); TRANSITIONAL EPI CELLS, URINE 1 /hpf; URINE COLOR YELLOW (YELLW/STRAW)
[2016-10-06] VITALS (8 sets, daily range): BP systolic 162–197; BP diastolic 77–101; PULSE 68–86; RESP 18–21; TEMP 96.5–98.6; O2SAT 94–99
[2016-10-06] MEDS: CHLORHEXIDINE GLUCONATE 2 % 1 PACK (2 CLOTHS) TOP SCH (04:00)
[2016-10-06] MEDS: INSULIN ASPART SUPPLEMENTAL SCALE SQ SCH ×4 (05:23→20:36)
[2016-10-06 07:09] LABS: BICARBONATE 32.5 MEQ/L (21.0-32.0); POTASSIUM 4.1 MEQ/L (3.5-5.1)
[2016-10-06] MEDS: predniSONE 20 MG TAB PO SCH (07:55)
[2016-10-06] MEDS: METOPROLOL TARTRATE 100 MG TAB PO SCH ×2 (07:55→20:35)
[2016-10-06] MEDS: cloNIDine HCL 0.2 MG TAB PO SCH ×3 (07:55→23:20)
[2016-10-06] MEDS: PANTOPRAZOLE SOD 40 MG DELAYED RELEASE TAB PO SCH (07:55)
[2016-10-06] MEDS: DOCUSATE SODIUM 50 MG/SENNA 8.6 MG TAB PO SCH ×2 (08:01→20:35)
[2016-10-06] MEDS: DEXT 5%-NACL 0.9% 1000 ML INJ 1,000 ML IV SCH (09:19)
--- NOTE | 2016-10-06 11:43 | HHI.PR ---
Subjective Remarks Follow-up acute renal failure requiring emergent hemodialysis/rhabdomyolysis/ multiple electrolyte abnormalities 10/02/16-patient seen and examined, denies any cramps however only complains of back pain. Denies any chest pain or shortness of breath, no acute event overnight. Good urine output. Heading for hemodialysis this morning. Renal indices trending down 10/03/16-patient seen and examined, he had a 3 L fluid removed from dialysis yesterday. Denies any chest pain or shortness of breath. Plan for HD again today. 10/04/16-patient seen and examined, and back to hemodialysis today. No acute event overnight. Was given oral pain meds 1 yesterday secondary to back pain however none today. 10/05/16-patient seen and examined, breathing better and denies any shortness of breath. He had hemodialysis yesterday. Renal indices trending down 10/06/16-patient seen and examined, complains of burning urination. UA positive for leukocyte esterase and some hematuria. Renal indices with some slight uptake Objective Vitals Vital Signs Date Time Temp Pulse Resp B/P Pulse Ox O2 Delivery O2 Flow Rate FiO2 10/06/16 11:19 97 21 10/06/16 08:00 97 Room Air 10/06/16 08:00 97.9 86 18 186/81 97 10/06/16 04:00 97.3 81 18 162/77 97 10/06/16 00:00 98.0 81 18 163/97 97 10/05/16 20:34 98 21 10/05/16 20:00 98.1 91 20 187/88 98 10/05/16 16:00 97.8 81 18 174/84 97 10/05/16 12:00 98.3 75 19 179/83 94 I/O 10/05/16 10/05/16 10/05/16 10/06/16 10/06/16 10/06/16 07:00 15:00 23:00 07:00 15:00 23:00 Intake Total 360 ml 1600 ml 660 ml 480 ml Output Total 600 ml Balance 360 ml 1000 ml 660 ml 480 ml Intake Oral 360 ml 956 ml 660 ml 480 ml IV Total 644 ml 0 ml Output Urine Total 600 ml # Voids 2 4 2 # Bowel Movements 1 1 0 Result Diagram: 10/05/16 0459 10/06/16 0447 Objective Remarks GENERAL: NAD and obese patient SKIN: Warm and dry. HEAD: Normocephalic. EYES: No scleral icterus. No injection or drainage. NECK: Supple, trachea midline. No JVD or lymphadenopathy. CARDIOVASCULAR: Regular rate and rhythm without murmurs, gallops, or rubs. RESPIRATORY: Breath sounds equal bilaterally. No accessory muscle use. GASTROINTESTINAL: Abdomen soft, non-tender, nondistended. MUSCULOSKELETAL: No cyanosis, or edema. BACK: Nontender without obvious deformity. No CVA tenderness. Date of Insertion: Sep 25, 2016 Side: Right Location: Internal, Jugular A/P Problem List: (1) Acute renal failure with tubular necrosis ICD Code: N17.0 Status: Acute (2) Acidosis, metabolic ICD Code: E87.2 Status: Acute (3) Rhabdomyolysis ICD Code: M62.82 Status: Acute (4) Renal failure ICD Code: N19 Status: Acute (5) COPD exacerbation ICD Code: J44.1 Status: Acute (6) Hyponatremia ICD Code: E87.1 Status: Acute (7) Hypocalcemia ICD Code: E83.51 Status: Acute (8) Hyperkalemia ICD Code: E87.5 Status: Acute (9) UTI (urinary tract infection) ICD Code: N39.0 Status: Acute Assessment and Plan 45-year-old man with Urinary tract infection Start empiric treatment with Rocephin IV daily 10/06/16 pending urine culture Acute renal failure with tubular necrosis: 2/2 rhabdomyolysis Currently on hemodialysis per nephrology. Hemodialysis on hold over the past 48 hours Renal indices trend up with Bun/Cr 70/6.08, continue to monitor BUN/ creatinine Continue with IV fluid hydration per nephrology Rhabdomyolysis Still requiring HD Monitor CK Metabolic acidosis Secondary to renal failure and now resolved Uncontrolled hypertension-labile Change Clonidine 0.2 mg to every 8 hours today 10/06/16 Continue with Lopressor 100 mg every 12, Norvasc 10 mg daily Hydralazine when necessary Myoclonus-resolved EEG abnormal on 09/25/16 Not currently on any medication Appreciate input from neurology who signed off Hypoxic respiratory failure-resolved Obstructive sleep apnea Asthma/COPD Stable Continue with BiPAP when necessary at night Currently on prednisone 20 mg dailyKarla Appreciate input from pulmonary medicine Leukocytosis Secondary to steroid WBC trending down, continue to monitor Thrombocytopenia Monitor CBC Multiple electrolyte abnormalities Management per nephrology GI Prophylaxis Protonix DVT Prophylaxis -- SCDs Heparin BID Problem Qualifiers (1) Rhabdomyolysis: Qualified Code: M62.82 - Non-traumatic rhabdomyolysis (2) Renal failure: Qualified Code: N17.9 - Acute renal failure, unspecified acute renal failure type Al Sawyer MD Oct 06, 2016 11:43
[2016-10-06] MEDS: HEPARIN SODIUM - SQ 10,000 UNITS/ML VIAL SQ SCH ×2 (12:11→23:20)
[2016-10-06] MEDS: ALPRAZolam 1 MG TAB PO PRN ×2 (12:11→23:09)
--- NOTE | 2016-10-06 12:24 | HHI.NPPN ---
Subjective History of Present Illness 45 year old male with Rhabdomyolysis, ARF Additional Remarks No acute complaints Objective Data Data 10/05/16 10/06/16 19:00 07:00 Intake Total 1600 ml 1140 ml Output Total 600 ml Balance 1000 ml 1140 ml Intake Oral 956 ml 1140 ml IV Total 644 ml 0 ml Output Urine Total 600 ml # Voids 6 # Bowel Movements 1 0 Vital Signs Date Time Temp Pulse Resp B/P Pulse Ox O2 Delivery O2 Flow Rate FiO2 10/06/16 11:19 97 21 10/06/16 08:00 97 Room Air 10/06/16 08:00 97.9 86 18 186/81 97 10/06/16 04:00 97.3 81 18 162/77 97 10/06/16 00:00 98.0 81 18 163/97 97 10/05/16 20:34 98 21 10/05/16 20:00 98.1 91 20 187/88 98 10/05/16 16:00 97.8 81 18 174/84 97 -: 10/05/16 0459 10/06/16 0447 Microbiology 10/05/16 Urine Culture, Received Pending Physical Exam General Appearance: Well Developed, Well Nourished Neck Neck Exam: Neck Supple Pulmonary Resp Exam: Clear Bilaterally, Breath Sounds Equal Cardiology CV Exam: Regular, Normal Sinus Rhythm Gastrointestinal/Abdomen GI Exam: Soft, Non-Tender, Bowel Sounds Present Extremeties Extremities Exam: No Edema Assessment/Plan Problem List: (1) Renal failure Plan: Patient has acute tubular necrosis due to rhabdomyolysis HD on hold UOP starting to improve. Cr worse may need another dialysis session by sat follow BMP d/w pt (2) Rhabdomyolysis Plan: Due to severe dehydration CK level trending down, still requires HD (3) Hyperkalemia Plan: Due to the acute renal failure resolved with hemodialysis (4) Hyponatremia Plan: Due to renal failure resolved with hemodialysis (5) Hypocalcemia Plan: Corrected with hemodialysis (6) COPD exacerbation Plan: Monitor (7) Acidosis, metabolic Plan: due to ARF resolved with HD Problem Qualifiers (1) Renal failure: Qualified Code: N17.9 - Acute renal failure, unspecified acute renal failure type (2) Rhabdomyolysis: Qualified Code: M62.82 - Non-traumatic rhabdomyolysis Axel Anderson MD Oct 06, 2016 12:24
[2016-10-06] MEDS: cefTRIAXone INJ 1,000 MG in SODIUM CHLORIDE 0.9% INJ 100 ML IV SCH (12:26)
[2016-10-06] MEDS: hydrALAZINE HCL 25 MG TAB PO PRN (13:18)
[2016-10-06] MEDS: ACETAMINOPHEN/HYDROcodone 325 MG/5 MG TAB PO PRN (13:18)
--- NOTE | 2016-10-06 15:18 | HHI.PR ---
Subjective Remarks alert no SOB Objective Vital Signs Date Time Temp Pulse Resp B/P Pulse Ox O2 Delivery O2 Flow Rate FiO2 10/06/16 14:18 18 10/06/16 12:00 96.6 68 18 197/101 94 10/06/16 11:19 97 21 10/06/16 08:00 97 Room Air 10/06/16 08:00 97.9 86 18 186/81 97 10/06/16 04:00 97.3 81 18 162/77 97 10/06/16 00:00 98.0 81 18 163/97 97 10/05/16 20:34 98 21 10/05/16 20:00 98.1 91 20 187/88 98 10/05/16 16:00 97.8 81 18 174/84 97 I/O 10/05/16 10/05/16 10/05/16 10/06/16 10/06/16 10/06/16 07:00 15:00 23:00 07:00 15:00 23:00 Intake Total 360 ml 1600 ml 660 ml 480 ml 1440 ml Output Total 600 ml 175 ml Balance 360 ml 1000 ml 660 ml 480 ml 1265 ml Intake Oral 360 ml 956 ml 660 ml 480 ml 1440 ml IV Total 644 ml 0 ml Output Urine Total 600 ml 175 ml # Voids 2 4 2 10 # Bowel Movements 1 1 0 0 Result Diagram: 10/05/16 0459 10/06/16 0447 Objective Remarks GENERAL: SKIN: Warm and dry. HEAD: Atraumatic. Normocephalic. EYES: Pupils equal and round. No scleral icterus. No injection or drainage. ENT: No nasal bleeding or discharge. Mucous membranes pink and moist. NECK: Trachea midline. No JVD. CARDIOVASCULAR: Regular rate and rhythm. RESPIRATORY: No accessory muscle use. Clear to auscultation. Breath sounds equal bilaterally. GASTROINTESTINAL: Abdomen soft, non-tender, nondistended. Hepatic and splenic margins not palpable. MUSCULOSKELETAL: Extremities without clubbing, cyanosis, or edema. No obvious deformities. NEUROLOGICAL: Awake and alert. No obvious cranial nerve deficits. Motor grossly within normal limits. Five out of 5 muscle strength in the arms and legs. Normal speech. PSYCHIATRIC: Appropriate mood and affect; insight and judgment normal. Assessment and Plan Assessment and Plan ass renal failure ? asthma probable LANCE PLAN O2 as needed bronchodilator therapy BIPAP 03/09 WHILE SLEEPING Spencer Palmer MD Oct 06, 2016 15:18
[2016-10-06] MEDS: RESP: BUDESONIDE 0.5 MG/2 ML NEB NEB SCH (19:22)
[2016-10-07 04:00] VITALS: BP 192/95
[2016-10-07] MEDS: CHLORHEXIDINE GLUCONATE 2 % 1 PACK (2 CLOTHS) TOP SCH (04:00)
[2016-10-07 04:15] VITALS: BP 180/100; PULSE 87
[2016-10-07] MEDS: cloNIDine HCL 0.1 MG TAB PO PRN (05:01)
[2016-10-07 06:03] LABS: BICARBONATE 30.1 MEQ/L (21.0-32.0); POTASSIUM 3.8 MEQ/L (3.5-5.1)
[2016-10-07] MEDS: INSULIN ASPART SUPPLEMENTAL SCALE SQ SCH ×4 (07:00→20:10)
[2016-10-07 08:00] VITALS: BP 167/80; PULSE 91; RESP 18; TEMP 96.6; O2SAT 94
[2016-10-07] MEDS: DOCUSATE SODIUM 50 MG/SENNA 8.6 MG TAB PO SCH ×2 (08:18→20:06)
[2016-10-07] MEDS: METOPROLOL TARTRATE 100 MG TAB PO SCH ×2 (08:19→20:06)
[2016-10-07] MEDS: predniSONE 20 MG TAB PO SCH (08:19)
[2016-10-07] MEDS: PANTOPRAZOLE SOD 40 MG DELAYED RELEASE TAB PO SCH (08:19)
[2016-10-07] MEDS: cloNIDine HCL 0.2 MG TAB PO SCH ×3 (08:19→23:54)
[2016-10-07] MEDS: RESP: BUDESONIDE 0.5 MG/2 ML NEB NEB SCH ×2 (08:50→19:49)
--- NOTE | 2016-10-07 11:21 | HHI.PR ---
Subjective Remarks Follow-up acute renal failure requiring emergent hemodialysis/rhabdomyolysis/ multiple electrolyte abnormalities 10/02/16-patient seen and examined, denies any cramps however only complains of back pain. Denies any chest pain or shortness of breath, no acute event overnight. Good urine output. Heading for hemodialysis this morning. Renal indices trending down 10/03/16-patient seen and examined, he had a 3 L fluid removed from dialysis yesterday. Denies any chest pain or shortness of breath. Plan for HD again today. 10/04/16-patient seen and examined, and back to hemodialysis today. No acute event overnight. Was given oral pain meds 1 yesterday secondary to back pain however none today. 10/05/16-patient seen and examined, breathing better and denies any shortness of breath. He had hemodialysis yesterday. Renal indices trending down 10/06/16-patient seen and examined, complains of burning urination. UA positive for leukocyte esterase and some hematuria. Renal indices with some slight uptake 10/07/16-patient seen and examined, is having a better mood today. Has good urine function. Creatinine trending down Objective Vitals Vital Signs Date Time Temp Pulse Resp B/P Pulse Ox O2 Delivery O2 Flow Rate FiO2 10/07/16 08:00 96.6 91 18 167/80 94 10/07/16 04:15 87 180/100 10/07/16 04:00 192/95 10/06/16 23:26 98.6 78 21 188/80 96 10/06/16 21:00 94 Room Air 10/06/16 20:18 96.5 86 20 185/86 94 10/06/16 16:00 98.0 75 18 170/84 99 10/06/16 14:18 18 10/06/16 12:00 96.6 68 18 197/101 94 I/O 10/06/16 10/06/16 10/06/16 10/07/16 10/07/16 10/07/16 07:00 15:00 23:00 07:00 15:00 23:00 Intake Total 480 ml 1440 ml 580 ml 480 ml Output Total 175 ml Balance 480 ml 1265 ml 580 ml 480 ml Intake Oral 480 ml 1440 ml 580 ml 480 ml IV Total 0 ml 0 ml Output Urine Total 175 ml # Voids 2 10 2 2 # Bowel Movements 0 Result Diagram: 10/05/16 0459 10/07/16 0423 Objective Remarks GENERAL: NAD and obese patient SKIN: Warm and dry. HEAD: Normocephalic. EYES: No scleral icterus. No injection or drainage. NECK: Supple, trachea midline. No JVD or lymphadenopathy. CARDIOVASCULAR: Regular rate and rhythm without murmurs, gallops, or rubs. RESPIRATORY: Breath sounds equal bilaterally. No accessory muscle use. GASTROINTESTINAL: Abdomen soft, non-tender, nondistended. MUSCULOSKELETAL: No cyanosis, or edema. BACK: Nontender without obvious deformity. No CVA tenderness. Date of Insertion: Sep 25, 2016 Side: Right Location: Internal, Jugular A/P Problem List: (1) Acute renal failure with tubular necrosis ICD Code: N17.0 Status: Acute (2) Acidosis, metabolic ICD Code: E87.2 Status: Acute (3) Rhabdomyolysis ICD Code: M62.82 Status: Acute (4) Renal failure ICD Code: N19 Status: Acute (5) COPD exacerbation ICD Code: J44.1 Status: Acute (6) Hyponatremia ICD Code: E87.1 Status: Acute (7) Hypocalcemia ICD Code: E83.51 Status: Acute (8) Hyperkalemia ICD Code: E87.5 Status: Acute (9) UTI (urinary tract infection) ICD Code: N39.0 Status: Acute Assessment and Plan 45-year-old man with Urinary tract infection Continue empiric treatment with Rocephin IV daily pending urine culture Acute renal failure with tubular necrosis: 2/2 rhabdomyolysis Currently on hemodialysis per nephrology. Hemodialysis on hold over the past 48 hours Renal indices trend down with Bun/Cr 71/5.89, continue to monitor BUN/ creatinine Continue with IV fluid hydration per nephrology Rhabdomyolysis Still requiring HD Monitor CK Metabolic acidosis Secondary to renal failure and now resolved Uncontrolled hypertension-labile Continue Clonidine 0.2 mg every 8 hours 10/06/16 Continue with Lopressor 100 mg every 12, Norvasc 10 mg daily Hydralazine when necessary Myoclonus-resolved EEG abnormal on 09/25/16 Not currently on any medication Appreciate input from neurology who signed off Hypoxic respiratory failure-resolved Obstructive sleep apnea Asthma/COPD Stable Continue with BiPAP when necessary at night Currently on prednisone 20 mg daily, Karla Appreciate input from pulmonary medicine Leukocytosis Secondary to steroid WBC trending down, continue to monitor Thrombocytopenia Monitor CBC Multiple electrolyte abnormalities Management per nephrology GI Prophylaxis Protonix DVT Prophylaxis -- SCDs Heparin BID Problem Qualifiers (1) Rhabdomyolysis: Qualified Code: M62.82 - Non-traumatic rhabdomyolysis (2) Renal failure: Qualified Code: N17.9 - Acute renal failure, unspecified acute renal failure type Al Sawyer MD Oct 07, 2016 11:21
[2016-10-07] MEDS: HEPARIN SODIUM - SQ 10,000 UNITS/ML VIAL SQ SCH ×2 (11:22→23:55)
[2016-10-07] MEDS: cefTRIAXone INJ 1,000 MG in SODIUM CHLORIDE 0.9% INJ 100 ML IV SCH (11:23)
--- NOTE | 2016-10-07 11:53 | HHI.NPPN ---
Subjective History of Present Illness 45 year old male with Rhabdomyolysis, ARF Additional Remarks renal function has improved slightly today. Objective Data Data 10/06/16 10/07/16 19:00 07:00 Intake Total 1440 ml 1060 ml Output Total 175 ml Balance 1265 ml 1060 ml Intake Oral 1440 ml 1060 ml IV Total 0 ml Output Urine Total 175 ml # Voids 10 4 # Bowel Movements 0 Vital Signs Date Time Temp Pulse Resp B/P Pulse Ox O2 Delivery O2 Flow Rate FiO2 10/07/16 08:00 96.6 91 18 167/80 94 10/07/16 04:15 87 180/100 10/07/16 04:00 192/95 10/06/16 23:26 98.6 78 21 188/80 96 10/06/16 21:00 94 Room Air 10/06/16 20:18 96.5 86 20 185/86 94 10/06/16 16:00 98.0 75 18 170/84 99 10/06/16 14:18 18 10/06/16 12:00 96.6 68 18 197/101 94 -: 10/05/16 0459 10/07/16 0423 Physical Exam General Appearance: Well Developed, Well Nourished Neck Neck Exam: Neck Supple Pulmonary Resp Exam: Clear Bilaterally, Breath Sounds Equal Cardiology CV Exam: Regular, Normal Sinus Rhythm Gastrointestinal/Abdomen GI Exam: Soft, Non-Tender, Bowel Sounds Present Extremeties Extremities Exam: No Edema Assessment/Plan Problem List: (1) Renal failure Plan: Patient has acute tubular necrosis due to rhabdomyolysis HD on hold UOP starting to improve. Slight improvement in creatinine, will hold dialysis. follow BMP (2) Rhabdomyolysis Plan: Due to severe dehydration CK level trending down, still requires HD (3) Hyperkalemia Plan: Due to the acute renal failure resolved with hemodialysis (4) Hyponatremia Plan: Due to renal failure resolved with hemodialysis (5) Hypocalcemia Plan: Corrected with hemodialysis (6) COPD exacerbation Plan: Monitor (7) Acidosis, metabolic Plan: due to ARF resolved with HD Problem Qualifiers (1) Renal failure: Qualified Code: N17.9 - Acute renal failure, unspecified acute renal failure type (2) Rhabdomyolysis: Qualified Code: M62.82 - Non-traumatic rhabdomyolysis Sebastian Camejo MD Oct 07, 2016 11:53
[2016-10-07 12:00] VITALS: BP 183/93; PULSE 70; RESP 17; TEMP 97; O2SAT 95
[2016-10-07] MEDS: ALPRAZolam 1 MG TAB PO PRN (12:45)
[2016-10-07] MEDS: hydrALAZINE HCL 25 MG TAB PO PRN (13:02)
[2016-10-07 16:00] VITALS: BP 185/90; PULSE 80; RESP 19; TEMP 97.5; O2SAT 98
[2016-10-07 20:00] VITALS: BP 189/94; PULSE 83; RESP 20; TEMP 96.8; O2SAT 98
[2016-10-08] VITALS (11 sets, daily range): BP systolic 131–212; BP diastolic 74–107; PULSE 63–85; RESP 18–20; TEMP 96.5–99.2; O2SAT 95–98
[2016-10-08] MEDS: CHLORHEXIDINE GLUCONATE 2 % 1 PACK (2 CLOTHS) TOP SCH (00:37)
[2016-10-08] MEDS: ALPRAZolam 1 MG TAB PO PRN ×3 (01:25→22:22)
[2016-10-08] MEDS: cloNIDine HCL 0.1 MG TAB PO PRN (03:59)
[2016-10-08] MEDS: INSULIN ASPART SUPPLEMENTAL SCALE SQ SCH ×4 (04:11→20:23)
[2016-10-08 04:41] LABS: AUTOMATED NEUTROPHIL # 8.4 TH/MM3 (1.8-7.7); BASOPHIL # 0.1 TH/MM3 (0-0.2); BASOPHIL % 0.5 % (0.0-2.0); EOSINOPHIL % 0.4 % (0.0-4.0); HEMATOCRIT 27.1 % (39.0-51.0); HEMO FLAGS DIFF FINAL; LYMPH % 10.9 % (9.0-44.0); LYMPHOCYTE # 1.1 TH/MM3 (1.0-4.8); MEAN CORPUSCULAR HEMOGLOBIN 28.1 PG (27.0-34.0); MEAN CORPUSCULAR HGB CONC 32.6 % (32.0-36.0); MONO % 7.2 % (0.0-8.0); PLATELET COUNT 157 TH/MM3 (150-450); RED BLOOD COUNT 3.15 MIL/MM3 (4.50-5.90); RED CELL DISTRIBUTION WIDTH 14.2 % (11.6-17.2); WHITE BLOOD COUNT 10.3 TH/MM3 (4.0-11.0)
[2016-10-08] MEDS: hydrALAZINE HCL 25 MG TAB PO PRN (04:52)
[2016-10-08 05:08] LABS: POTASSIUM 4.7 MEQ/L (3.5-5.1)
[2016-10-08] MEDS ORDERED: hydrALAZINE HCL 50 MG TAB PO ONE (05:15)
[2016-10-08] MEDS: PANTOPRAZOLE SOD 40 MG DELAYED RELEASE TAB PO SCH (07:52)
[2016-10-08] MEDS: cloNIDine HCL 0.2 MG TAB PO SCH ×2 (07:52→16:36)
[2016-10-08] MEDS: DOCUSATE SODIUM 50 MG/SENNA 8.6 MG TAB PO SCH ×2 (07:52→20:24)
[2016-10-08] MEDS: METOPROLOL TARTRATE 100 MG TAB PO SCH ×2 (07:52→20:24)
[2016-10-08] MEDS: predniSONE 20 MG TAB PO SCH (07:52)
[2016-10-08] MEDS: ACETAMINOPHEN/HYDROcodone 325 MG/5 MG TAB PO PRN (07:53)
[2016-10-08] MEDS: RESP: BUDESONIDE 0.5 MG/2 ML NEB NEB SCH ×2 (08:00→19:47)
--- NOTE | 2016-10-08 09:43 | HHI.NPPN ---
Subjective History of Present Illness 45 year old male with Rhabdomyolysis, ARF Additional Remarks mild improvement in creatinine. He is non oliguric. Objective Data Data 10/07/16 10/08/16 19:00 07:00 Intake Total 340 ml 840 ml Balance 340 ml 840 ml Intake Oral 240 ml 840 ml IV Total 100 ml # Voids 2 3 # Bowel Movements 2 1 Vital Signs Date Time Temp Pulse Resp B/P Pulse Ox O2 Delivery O2 Flow Rate FiO2 10/08/16 09:31 185/92 10/08/16 08:35 169/90 166/90 10/08/16 08:00 97.4 80 18 173/85 95 10/08/16 06:14 85 131/78 10/08/16 04:53 77 189/92 10/08/16 04:00 75 212/107 10/08/16 00:00 99.2 73 20 181/95 97 10/07/16 20:00 96.8 83 20 189/94 98 10/07/16 16:00 97.5 80 19 185/90 98 10/07/16 12:00 97.0 70 17 183/93 95 -: 10/08/16 0416 10/08/16 0416 Physical Exam General Appearance: Well Developed, Well Nourished, Obese Neck Neck Exam: Neck Supple Pulmonary Resp Exam: Clear Bilaterally, Breath Sounds Equal Cardiology CV Exam: Regular, Normal Sinus Rhythm Gastrointestinal/Abdomen GI Exam: Soft, Non-Tender, Bowel Sounds Present Extremeties Extremities Exam: No Edema Assessment/Plan Problem List: (1) Renal failure Plan: Patient has acute tubular necrosis due to rhabdomyolysis HD on hold Non oliguric. Slight improvement in creatinine, will hold dialysis. follow BMP (2) Rhabdomyolysis Plan: Due to severe dehydration CK level trending down, still requires HD (3) Hyperkalemia Plan: Due to the acute renal failure resolved with hemodialysis (4) Hyponatremia Plan: Due to renal failure resolved with hemodialysis (5) Hypocalcemia Plan: Corrected with hemodialysis (6) COPD exacerbation Plan: Monitor (7) Acidosis, metabolic Plan: due to ARF resolved with HD Problem Qualifiers (1) Renal failure: Qualified Code: N17.9 - Acute renal failure, unspecified acute renal failure type (2) Rhabdomyolysis: Qualified Code: M62.82 - Non-traumatic rhabdomyolysis Sebastian Camejo MD Oct 08, 2016 09:42
[2016-10-08] MEDS: hydrALAZINE HCL 50 MG TAB PO SCH ×3 (09:51→22:22)
--- NOTE | 2016-10-08 11:32 | HHI.PR ---
Subjective Remarks Follow-up acute renal failure requiring emergent hemodialysis/rhabdomyolysis/ multiple electrolyte abnormalities 10/02/16-patient seen and examined, denies any cramps however only complains of back pain. Denies any chest pain or shortness of breath, no acute event overnight. Good urine output. Heading for hemodialysis this morning. Renal indices trending down 10/03/16-patient seen and examined, he had a 3 L fluid removed from dialysis yesterday. Denies any chest pain or shortness of breath. Plan for HD again today. 10/04/16-patient seen and examined, and back to hemodialysis today. No acute event overnight. Was given oral pain meds 1 yesterday secondary to back pain however none today. 10/05/16-patient seen and examined, breathing better and denies any shortness of breath. He had hemodialysis yesterday. Renal indices trending down 10/06/16-patient seen and examined, complains of burning urination. UA positive for leukocyte esterase and some hematuria. Renal indices with some slight uptake 10/07/16-patient seen and examined, is having a better mood today. Has good urine function. Creatinine trending down 10/08/16-patient seen and examined, labile BP however patient denies any headache or visual changes. HD on hold and creatinine trending down Objective Vitals Vital Signs Date Time Temp Pulse Resp B/P Pulse Ox O2 Delivery O2 Flow Rate FiO2 10/08/16 09:31 185/92 10/08/16 08:35 169/90 166/90 10/08/16 08:00 97.4 80 18 173/85 95 10/08/16 06:14 85 131/78 10/08/16 04:53 77 189/92 10/08/16 04:00 75 212/107 10/08/16 00:00 99.2 73 20 181/95 97 10/07/16 20:00 96.8 83 20 189/94 98 10/07/16 16:00 97.5 80 19 185/90 98 10/07/16 12:00 97.0 70 17 183/93 95 I/O 10/07/16 10/07/16 10/07/16 10/08/16 10/08/16 10/08/16 07:00 15:00 23:00 07:00 15:00 23:00 Intake Total 480 ml 340 ml 360 ml 480 ml Balance 480 ml 340 ml 360 ml 480 ml Intake Oral 480 ml 240 ml 360 ml 480 ml IV Total 0 ml 100 ml # Voids 2 2 2 1 # Bowel Movements 2 0 1 Result Diagram: 10/08/1641510/08/16415 Objective Remarks GENERAL: NAD and obese patient SKIN: Warm and dry. HEAD: Normocephalic. EYES: No scleral icterus. No injection or drainage. NECK: Supple, trachea midline. No JVD or lymphadenopathy. CARDIOVASCULAR: Regular rate and rhythm without murmurs, gallops, or rubs. RESPIRATORY: Breath sounds equal bilaterally. No accessory muscle use. GASTROINTESTINAL: Abdomen soft, non-tender, nondistended. MUSCULOSKELETAL: No cyanosis, or edema. BACK: Nontender without obvious deformity. No CVA tenderness. Date of Insertion: Sep 25, 2016 Side: Right Location: Internal, Jugular A/P Problem List: (1) Acute renal failure with tubular necrosis ICD Code: N17.0 Status: Acute (2) Acidosis, metabolic ICD Code: E87.2 Status: Acute (3) Rhabdomyolysis ICD Code: M62.82 Status: Acute (4) Renal failure ICD Code: N19 Status: Acute (5) COPD exacerbation ICD Code: J44.1 Status: Acute (6) Hyponatremia ICD Code: E87.1 Status: Acute (7) Hypocalcemia ICD Code: E83.51 Status: Acute (8) Hyperkalemia ICD Code: E87.5 Status: Acute (9) UTI (urinary tract infection) ICD Code: N39.0 Status: Acute Assessment and Plan 45-year-old man with Urinary tract infection Urine culture negative therefore will discontinue Rocephin Acute renal failure with tubular necrosis: 2/2 rhabdomyolysis Currently on hemodialysis per nephrology. Hemodialysis on hold Renal indices trend down with Bun/Cr , continue to monitor BUN/creatinine Rhabdomyolysis Still requiring HD Monitor CK Metabolic acidosis Secondary to renal failure and now resolved Uncontrolled hypertension-labile BP Start hydralazine 50 mg every 8 hour today 10/08/16 Continue Clonidine 0.2 mg every 8 hours Continue with Lopressor 100 mg every 12, Norvasc 10 mg daily Hydralazine when necessary Myoclonus-resolved EEG abnormal on 09/25/16 Not currently on any medication Appreciate input from neurology who signed off Hypoxic respiratory failure-resolved Obstructive sleep apnea Asthma/COPD Stable Continue with BiPAP when necessary at night Decrease prednisone to 10mg daily, Karla Appreciate input from pulmonary medicine Leukocytosis Secondary to steroid WBC trending down, continue to monitor Thrombocytopenia Monitor CBC Multiple electrolyte abnormalities Management per nephrology GI Prophylaxis Protonix DVT Prophylaxis -- SCDs Heparin BID Problem Qualifiers (1) Rhabdomyolysis: Qualified Code: M62.82 - Non-traumatic rhabdomyolysis (2) Renal failure: Qualified Code: N17.9 - Acute renal failure, unspecified acute renal failure type Al Sawyer MD Oct 08, 2016 11:32
[2016-10-08] MEDS: HEPARIN SODIUM - SQ 10,000 UNITS/ML VIAL SQ SCH ×2 (11:43→22:22)
[2016-10-09 00:08] VITALS: BP 193/103; PULSE 72; RESP 18; TEMP 96.6; O2SAT 98
[2016-10-09] MEDS: cloNIDine HCL 0.2 MG TAB PO SCH ×3 (00:33→17:15)
[2016-10-09] MEDS: CHLORHEXIDINE GLUCONATE 2 % 1 PACK (2 CLOTHS) TOP SCH (00:33)
[2016-10-09 04:24] VITALS: BP 175/114; PULSE 74; RESP 18; TEMP 95.2; O2SAT 99
[2016-10-09] MEDS: hydrALAZINE HCL 50 MG TAB PO SCH ×2 (04:59→13:02)
[2016-10-09] MEDS: INSULIN ASPART SUPPLEMENTAL SCALE SQ SCH ×3 (05:03→16:00)
[2016-10-09 08:00] VITALS: BP 177/76; PULSE 83; RESP 20; TEMP 98.1; O2SAT 97
[2016-10-09] MEDS: RESP: BUDESONIDE 0.5 MG/2 ML NEB NEB SCH (08:00)
[2016-10-09 08:30] VITALS: O2SAT 98
[2016-10-09] MEDS: DOCUSATE SODIUM 50 MG/SENNA 8.6 MG TAB PO SCH (09:00)
[2016-10-09] MEDS ORDERED: predniSONE 10 MG TAB PO SCH (09:00)
[2016-10-09] MEDS: METOPROLOL TARTRATE 100 MG TAB PO SCH (09:13)
[2016-10-09] MEDS: PANTOPRAZOLE SOD 40 MG DELAYED RELEASE TAB PO SCH (09:13)
[2016-10-09 12:00] VITALS: BP 142/65; PULSE 71; RESP 20; TEMP 97.8; O2SAT 95
[2016-10-09] MEDS: HEPARIN SODIUM - SQ 10,000 UNITS/ML VIAL SQ SCH (13:02)
--- NOTE | 2016-10-09 14:20 | HHI.PR ---
Subjective Remarks Follow-up acute renal failure requiring emergent hemodialysis/rhabdomyolysis/ multiple electrolyte abnormalities 10/02/16-patient seen and examined, denies any cramps however only complains of back pain. Denies any chest pain or shortness of breath, no acute event overnight. Good urine output. Heading for hemodialysis this morning. Renal indices trending down 10/03/16-patient seen and examined, he had a 3 L fluid removed from dialysis yesterday. Denies any chest pain or shortness of breath. Plan for HD again today. 10/04/16-patient seen and examined, and back to hemodialysis today. No acute event overnight. Was given oral pain meds 1 yesterday secondary to back pain however none today. 10/05/16-patient seen and examined, breathing better and denies any shortness of breath. He had hemodialysis yesterday. Renal indices trending down 10/06/16-patient seen and examined, complains of burning urination. UA positive for leukocyte esterase and some hematuria. Renal indices with some slight uptake 10/07/16-patient seen and examined, is having a better mood today. Has good urine function. Creatinine trending down 10/08/16-patient seen and examined, labile BP however patient denies any headache or visual changes. HD on hold and creatinine trending down 10/09/16-patient seen and examined, he is asking when he can be discharged home. Renal indices trending down Objective Vitals Vital Signs Date Time Temp Pulse Resp B/P Pulse Ox O2 Delivery O2 Flow Rate FiO2 10/09/16 12:00 97.8 71 20 142/65 95 10/09/16 08:30 98 21 10/09/16 08:00 98.1 83 20 177/76 97 10/09/16 04:24 95.2 74 18 175/114 99 10/09/16 00:08 96.6 72 18 193/103 98 10/08/16 20:00 98.0 84 20 187/105 98 10/08/16 18:25 169/74 10/08/16 16:00 96.5 68 18 181/88 97 I/O 10/08/16 10/08/16 10/08/16 10/09/16 10/09/16 10/09/16 07:00 15:00 23:00 07:00 15:00 23:00 Intake Total 480 ml 480 ml 380 ml 480 ml Balance 480 ml 480 ml 380 ml 480 ml Intake Oral 480 ml 480 ml 380 ml 480 ml IV Total 0 ml # Voids 1 8 1 1 # Bowel Movements 1 0 0 Result Diagram: 10/08/16 0416 10/09/16 0504 Objective Remarks GENERAL: NAD and obese patient SKIN: Warm and dry. HEAD: Normocephalic. EYES: No scleral icterus. No injection or drainage. NECK: Supple, trachea midline. No JVD or lymphadenopathy. CARDIOVASCULAR: Regular rate and rhythm without murmurs, gallops, or rubs. RESPIRATORY: Breath sounds equal bilaterally. No accessory muscle use. GASTROINTESTINAL: Abdomen soft, non-tender, nondistended. MUSCULOSKELETAL: No cyanosis, or edema. BACK: Nontender without obvious deformity. No CVA tenderness. Date of Insertion: Sep 25, 2016 Side: Right Location: Internal, Jugular A/P Problem List: (1) Acute renal failure with tubular necrosis ICD Code: N17.0 Status: Acute (2) Acidosis, metabolic ICD Code: E87.2 Status: Acute (3) Rhabdomyolysis ICD Code: M62.82 Status: Acute (4) Renal failure ICD Code: N19 Status: Acute (5) COPD exacerbation ICD Code: J44.1 Status: Acute (6) Hyponatremia ICD Code: E87.1 Status: Acute (7) Hypocalcemia ICD Code: E83.51 Status: Acute (8) Hyperkalemia ICD Code: E87.5 Status: Acute (9) UTI (urinary tract infection) ICD Code: N39.0 Status: Acute Assessment and Plan 45-year-old man with Urinary tract infection Urine culture negative therefore will discontinue Rocephin Acute renal failure with tubular necrosis: 2/2 rhabdomyolysis Currently on hemodialysis per nephrology. Hemodialysis on hold Renal indices trend down with Bun/Cr 69/5.13, continue to monitor BUN/ creatinine Rhabdomyolysis-resolved Monitor CK Metabolic acidosis Secondary to renal failure and now resolved Uncontrolled hypertension-labile BP Continue hydralazine 50 mg every 8 hour Continue Clonidine 0.2 mg every 8 hours Continue with Lopressor 100 mg every 12, Norvasc 10 mg daily Hydralazine when necessary Myoclonus-resolved EEG abnormal on 09/25/16 Not currently on any medication Appreciate input from neurology who signed off Hypoxic respiratory failure-resolved Obstructive sleep apnea Asthma/COPD Stable Continue with BiPAP when necessary at night Continue prednisone 10mg daily, Karla Appreciate input from pulmonary medicine Leukocytosis Secondary to steroid WBC trending down, continue to monitor Thrombocytopenia Monitor CBC Multiple electrolyte abnormalities Management per nephrology GI Prophylaxis Protonix DVT Prophylaxis -- SCDs Heparin BID Problem Qualifiers (1) Rhabdomyolysis: Qualified Code: M62.82 - Non-traumatic rhabdomyolysis (2) Renal failure: Qualified Code: N17.9 - Acute renal failure, unspecified acute renal failure type Al Sawyer MD Oct 09, 2016 14:20
--- NOTE | 2016-10-09 15:24 | HHI.PR ---
Subjective Remarks alert no SOB ambulating Objective Vital Signs Date Time Temp Pulse Resp B/P Pulse Ox O2 Delivery O2 Flow Rate FiO2 10/09/16 12:00 97.8 71 20 142/65 95 10/09/16 08:30 98 21 10/09/16 08:00 98.1 83 20 177/76 97 10/09/16 04:24 95.2 74 18 175/114 99 10/09/16 00:08 96.6 72 18 193/103 98 10/08/16 20:00 98.0 84 20 187/105 98 10/08/16 18:25 169/74 10/08/16 16:00 96.5 68 18 181/88 97 I/O 10/08/16 10/08/16 10/08/16 10/09/16 10/09/16 10/09/16 07:00 15:00 23:00 07:00 15:00 23:00 Intake Total 480 ml 480 ml 380 ml 480 ml 360 ml Balance 480 ml 480 ml 380 ml 480 ml 360 ml Intake Oral 480 ml 480 ml 380 ml 480 ml 360 ml IV Total 0 ml # Voids 1 8 1 1 2 # Bowel Movements 1 0 0 0 Result Diagram: 10/08/16 0416 10/09/16 0504 Objective Remarks GENERAL: SKIN: Warm and dry. HEAD: Atraumatic. Normocephalic. EYES: Pupils equal and round. No scleral icterus. No injection or drainage. ENT: No nasal bleeding or discharge. Mucous membranes pink and moist. NECK: Trachea midline. No JVD. CARDIOVASCULAR: Regular rate and rhythm. RESPIRATORY: No accessory muscle use. Clear to auscultation. Breath sounds equal bilaterally. GASTROINTESTINAL: Abdomen soft, non-tender, nondistended. Hepatic and splenic margins not palpable. MUSCULOSKELETAL: Extremities without clubbing, cyanosis, or edema. No obvious deformities. NEUROLOGICAL: Awake and alert. No obvious cranial nerve deficits. Motor grossly within normal limits. Five out of 5 muscle strength in the arms and legs. Normal speech. PSYCHIATRIC: Appropriate mood and affect; insight and judgment normal. Assessment and Plan Assessment and Plan ass renal failure ? asthma probable LANCE PLAN O2 as needed bronchodilator therapy OK FOR D/C WILL SEE IN OFFICE 1 WEEK Spencer Palmer MD Oct 09, 2016 15:24
[2016-10-09 16:00] VITALS: BP 156/76; PULSE 78; RESP 20; TEMP 97; O2SAT 98
--- NOTE | 2016-10-09 17:51 | HHI.NPPN ---
Subjective History of Present Illness 45 year old male with Rhabdomyolysis, ARF Additional Remarks mild improvement in creatinine. He is non oliguric. Objective Data Data 10/08/16 10/09/16 19:00 07:00 Intake Total 480 ml 860 ml Balance 480 ml 860 ml Intake Oral 480 ml 860 ml IV Total 0 ml # Voids 8 2 # Bowel Movements 0 0 Vital Signs Date Time Temp Pulse Resp B/P Pulse Ox O2 Delivery O2 Flow Rate FiO2 10/09/16 16:00 97.0 78 20 156/76 98 10/09/16 12:00 97.8 71 20 142/65 95 10/09/16 08:30 98 21 10/09/16 08:00 98.1 83 20 177/76 97 10/09/16 04:24 95.2 74 18 175/114 99 10/09/16 00:08 96.6 72 18 193/103 98 10/08/16 20:00 98.0 84 20 187/105 98 10/08/16 18:25 169/74 -: 10/08/16 0416 10/09/16 0504 Physical Exam General Appearance: Well Developed, Well Nourished, Obese Neck Neck Exam: Neck Supple Pulmonary Resp Exam: Clear Bilaterally, Breath Sounds Equal Cardiology CV Exam: Regular, Normal Sinus Rhythm Gastrointestinal/Abdomen GI Exam: Soft, Non-Tender, Bowel Sounds Present Extremeties Extremities Exam: No Edema Assessment/Plan Problem List: (1) Renal failure Plan: Patient has acute tubular necrosis due to rhabdomyolysis HD on hold Non oliguric. Slight improvement in creatinine, dc Vascath possible dc home (2) Rhabdomyolysis Plan: Due to severe dehydration CK level trending down, still requires HD (3) Hyperkalemia Plan: Due to the acute renal failure resolved with hemodialysis (4) Hyponatremia Plan: Due to renal failure resolved with hemodialysis (5) Hypocalcemia Plan: Corrected with hemodialysis (6) COPD exacerbation Plan: Monitor (7) Acidosis, metabolic Plan: due to ARF resolved with HD Problem Qualifiers (1) Renal failure: Qualified Code: N17.9 - Acute renal failure, unspecified acute renal failure type (2) Rhabdomyolysis: Qualified Code: M62.82 - Non-traumatic rhabdomyolysis Axel Anderson MD Oct 09, 2016 17:51
[2016-10-09] MEDS ORDERED: CLON.2 PO (18:14)
[2016-10-09] MEDS ORDERED: BUDE.5I NEB (18:14)
[2016-10-09] MEDS ORDERED: HYDR-3800 PO (18:14)
[2016-10-09] MEDS ORDERED: IPRA17I INH (18:14)
[2016-10-09] MEDS ORDERED: VENTAER INH (18:14)
[2016-10-09] MEDS ORDERED: AMLO10 PO (18:14)
[2016-10-09] MEDS ORDERED: METO-338 PO (18:14)
--- NOTE | 2016-10-09 18:17 | HHI.DS ---
Discharge Summary Admission Date Sep 25, 2016 at 11:17 Discharge Date: Oct 09, 2016 Admitting Diagnosis hyponatremia, renal failure, rhabdomyolysis (1) Acute renal failure with tubular necrosis ICD Code: N17.0 (2) Acidosis, metabolic ICD Code: E87.2 (3) Rhabdomyolysis ICD Code: M62.82 (4) Renal failure ICD Code: N19 (5) COPD exacerbation ICD Code: J44.1 (6) Hyponatremia ICD Code: E87.1 (7) Hypocalcemia ICD Code: E83.51 (8) Hyperkalemia ICD Code: E87.5 (9) UTI (urinary tract infection) ICD Code: N39.0 Brief History - From Admission HPI This is a 45-year-old with history of hypertension, who presents to emergency room with multiple complaints. 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 Patient reports that he was brought home where his mother cared for him. Patient reports that he has had decreased urine output for the past week. Reports that he has minimal urine output and reports that he feels jittery and is having increased muscle spasms at this time. Patient also reports that yesterday, he has had increased cough and significant wheezing. Patient denies any fevers or chills. Reports that he does feel short of breath with his cough and wheezing. No chest pain at this time. Patient is a three fourths packs per day smoker 20 years. In the emergency department the patient was noted to be severely dehydrated with a BUN is 167, hyperkalemic potassium level 6.5 and hyponatremic with a sodium level of 115. Critical care medicine was consulted. Upon entering the ED, the patient was alert and oriented 3, with notable muscle spasms and involuntary twitching of extremities 4. Patient was noted to have arrhythmias, D50, insulin, Kayexalate, calcium gluconate was immediately instituted. The patient was receiving 3 L of normal saline bolus. History PFSH Past Medical History Cardiovascular Problems: Yes (HTN ) Diminished Hearing: No Gout: Yes Hypertension: Yes Immunizations Current: No Social History Alcohol Use: No Tobacco Use: Yes Substance Use: No Allergies-Medications Allergies-Medications (Allergen,Severity, Reaction): Coded Allergies: No Known Allergies (Unverified , 10/09/15) Reported Meds & Prescriptions Reported Meds & Active Scripts Active Ibuprofen 600 Mg Tab 600 Mg PO Q8H PRN 5 Days Clindamycin Hcl (Clindamycin HCl) 150 Mg Cap 450 Mg PO Q8HR 10 Days ROS Review of Systems General / Constitutional: No: Fever Eyes: No: Visual changes HENT: No: Headaches Cardiovascular: No: Chest Pain or Discomfort Respiratory: Positive: Cough, Shortness of Breath, Wheezing Gastrointestinal: No: Abdominal Pain Genitourinary: No: Dysuria Musculoskeletal: Positive: Myalgias, Weakness, Cramping, No: Pain Skin: No Rash Neurologic: No: Weakness Psychiatric: No: Depression Endocrine: No: Polydipsia Hematologic/Lymphatic: No: Easy Bruising CBC/BMP: 10/08/16 0416 10/09/16 0504 Significant Findings Laboratory Tests Test 10/07/16 10/08/16 10/09/16 04:23 04:16 05:04 Blood Urea Nitrogen 71 MG/DL (7-18) 72 MG/DL (7-18) 69 MG/DL (7-18) Creatinine 5.89 MG/DL 5.76 MG/DL 5.13 MG/DL (0.60-1.30) (0.60-1.30) (0.60-1.30) Estimat Glomerular Filtration 10 ML/MIN (>89) 11 ML/MIN (>89) 12 ML/MIN (>89) Rate Random Glucose 112 MG/DL (74-106) Red Blood Count 3.15 MIL/MM3 (4.50-5.90) Hemoglobin 8.8 GM/DL (13.0-17.0) Hematocrit 27.1 % (39.0-51.0) Neutrophils (%) (Auto) 81.0 % (16.0-70.0) Neutrophils # (Auto) 8.4 TH/MM3 (1.8-7.7) PE at Discharge GENERAL: NAD and obese patient SKIN: Warm and dry. HEAD: Normocephalic. EYES: No scleral icterus. No injection or drainage. NECK: Supple, trachea midline. No JVD or lymphadenopathy. CARDIOVASCULAR: Regular rate and rhythm without murmurs, gallops, or rubs. RESPIRATORY: Breath sounds equal bilaterally. No accessory muscle use. GASTROINTESTINAL: Abdomen soft, non-tender, nondistended. MUSCULOSKELETAL: No cyanosis, or edema. BACK: Nontender without obvious deformity. No CVA tenderness. Pt Condition on Discharge: Stable Discharge Disposition: Discharge Home Discharge Time: > 30 minutes Discharge Instructions DIET: Follow Instructions for: Renal Failure Diet Activities you can perform: Regular-No Restrictions Follow up Referrals: Nephrology PCP Follow-up - 1 Week New Orders: BASIC METABOLIC PROF - 3-5 Days New Medications: Albuterol 18 GM Inh (Ventolin Hfa 18 GM Inh) 90 Mcg/Act Aer 2 PUFF INH Q4H PRN SHORTNESS OF BREATH #1 Ref 3 INHALER Ipratropium HFA 12.9 GM Inh (Atrovent HFA 12.9 GM Inh) 17 Mcg/Act Aer 2 PUFF INH Q6HR PRN SHORTNESS OF BREATH #1 Ref 3 INHALER Amlodipine (Norvasc) 10 Mg Tab 10 MG PO DAILY Blood Pressure Management #30 Ref 3 TAB Budesonide Neb (Pulmicort Respules) 0.5 Mg/2 Ml Neb 0.5 MG NEB Q12HR NEB Breathing Treatment #1 Ref 3 MG Clonidine (Catapres) 0.2 Mg Tab 0.2 MG PO Q8H Breathing Treatment #90 Ref 3 TAB Hydralazine HCl (Hydralazine HCl) 50 Mg Tablet 50 MG PO Q8HR Blood Pressure Management #90 MG Metoprolol Tartrate (Lopressor) 100 Mg Tab 100 MG PO BID Blood Pressure Management #60 Ref 3 TAB Discontinued Medications: Carisoprodol (Soma) 350 Mg Tab 350 MG PO HS Muscle Spasm Ref 0 TAB Hydrocodone-Acetaminophen (Lortab) 10-325 Mg Tab 1 TAB PO BID Pain Management Ref 0 TAB Al Sawyer MD Oct 09, 2016 18:17
== END 2016-10-09 19:17 | disposition home or self-care (01) | DRG 682 ==
LOC: NEPE 08:44 → NEDA 11:17 → HIME 13:45 → N07B 09-30 19:15
PROVIDERS: ADMIT Hospitalist; ATTEND Hospitalist
PROC: 0T9B70Z Drainage of Bladder with Drainage Device, Via Natural or Artificial Opening (ICD-10-PCS; principal; 2016-09-25)
PROC: 06HM33Z Insertion of Infusion Device into Right Femoral Vein, Percutaneous Approach (ICD-10-PCS; 2016-09-25)
PROC: 5A1D60Z (ICD-10-PCS; 2016-09-25)
PROC: 05HM33Z Insertion of Infusion Device into Right Internal Jugular Vein, Percutaneous Approach (ICD-10-PCS; 2016-09-26)
DX: N17.0 Acute kidney failure with tubular necrosis (principal); J96.91 Respiratory failure, unspecified with hypoxia; M62.82 Rhabdomyolysis; E87.2 Acidosis; E87.1 Hypo-osmolality and hyponatremia; D69.6 Thrombocytopenia, unspecified; J44.1 Chronic obstructive pulmonary disease with (acute) exacerbation; E83.51 Hypocalcemia; E87.5 Hyperkalemia; I10 Essential (primary) hypertension; M10.9 Gout, unspecified; F17.210 Nicotine dependence, cigarettes, uncomplicated; M62.838 Other muscle spasm; E66.01 Morbid (severe) obesity due to excess calories; F12.90 Cannabis use, unspecified, uncomplicated; E86.0 Dehydration; Z78.1 Physical restraint status; G25.3 Myoclonus; R31.9 Hematuria, unspecified; G47.33 Obstructive sleep apnea (adult) (pediatric); T38.0X5A Adverse effect of glucocorticoids and synthetic analogues, initial encounter; Y92.239 Unspecified place in hospital as the place of occurrence of the external cause; D72.828 Other elevated white blood cell count
CPT/HCPCS: 36556; 36600; 51702; 71010; 74176; 76775; 76937; 80048; 80053; 80074; 80076; 80307; 81001; 82550; 82552; 82805; 82948; 83605; 83735; 84100; 84155; 84295; 85025; 85027; 87040; 87086; 87641; 90935; 93005; 94003; 94150; 94640; 94664; 95819; 96374; 96375; C9113; J0360; J0610; J0696; J1580; J1644; J1815; J2920; J2930; J3010; J7030; J7042; J7050; J7070; J7512; J7626

== ENCOUNTER 2016-10-11 14:08 | Emergency (ER) | payer OTHER ==
[~2016-10-11] VITALS: Ht 182.9 cm; Wt 164.0 kg
[~2016-10-11 14:08] MED LIST changes: +AMLO10 PO; +BUDE.5I NEB; -CLIN1CAP5 PO; +CLON.2 PO; +HYDR-3800 PO; -IBUP600T26 PO; +IPRA17I INH; +METO-338 PO; +VENTAER INH
[2016-10-11 14:10] VITALS: BP 140/78; PULSE 80; RESP 24; TEMP 98; O2SAT 99
[2016-10-11] MEDS ORDERED: ONDANSETRON HCL 4 MG/2 ML VIAL IV PUSH ONE (17:15)
[2016-10-11] MEDS ORDERED: MORPHINE SULFATE 8 MG/ML INJ IV PUSH ONE (17:15)
[2016-10-11] MEDS ORDERED: FUROSEMIDE 100 MG/10 ML VIAL IV PUSH ONE (17:15)
[2016-10-11] MEDS ORDERED: VANCOMYCIN INJ 1,000 MG in SODIUM CHLOR 0.9% 250 ML INJ 250 ML IV ONE (17:15)
--- NOTE | 2016-10-11 17:50 | RADRPT ---
EXAM DATE/TIME: 10/11/2016 17:06 [facility] COMPARISON: CHEST SINGLE AP, September 28, 2016, 2:58. INDICATIONS : Short of breath, feet swelling. MEDICAL HISTORY : None. SURGICAL HISTORY : None. ENCOUNTER: Initial ACUITY: 1 day PAIN SCORE: 0/10 LOCATION: Bilateral chest FINDINGS: A single view of the chest demonstrates the lungs to be symmetrically aerated without evidence of mas s, infiltrate or effusion. The cardiomediastinal contours are unremarkable. Osseous structures are intact. CONCLUSION: 1. No acute cardiopulmonary disease. Quinton Don MD on October 11, 2016 at 17:49 Board Certified Radiologist. This report was verified electronically.
[2016-10-11 18:10] LABS: PROTHROMBIN TIME - PATIENT 10.7 SEC (9.8-11.6)
[2016-10-11 18:11] LABS: AUTOMATED NEUTROPHIL # 6.6 TH/MM3 (1.8-7.7); BASOPHIL # 0.1 TH/MM3 (0-0.2); BASOPHIL % 0.8 % (0.0-2.0); EOSINOPHIL # 0.1 TH/MM3 (0-0.4); HEMATOCRIT 26.4 % (39.0-51.0); HEMO FLAGS DIFF FINAL; LYMPH % 10.1 % (9.0-44.0); LYMPHOCYTE # 0.9 TH/MM3 (1.0-4.8); MEAN CELL VOLUME 84.9 FL (80.0-100.0); MEAN CORPUSCULAR HEMOGLOBIN 27.7 PG (27.0-34.0); MEAN CORPUSCULAR HGB CONC 32.6 % (32.0-36.0); NEUT % 78.1 % (16.0-70.0); PLATELET COUNT 187 TH/MM3 (150-450); RED BLOOD COUNT 3.11 MIL/MM3 (4.50-5.90); RED CELL DISTRIBUTION WIDTH 14.4 % (11.6-17.2); WHITE BLOOD COUNT 8.5 TH/MM3 (4.0-11.0)
--- NOTE | 2016-10-11 18:27 | RADRPT ---
EXAM DATE/TIME: 10/11/2016 17:39 [facility] COMPARISON: No previous studies available for comparison. INDICATIONS : Bilateral leg edema. MEDICAL HISTORY : Hypertension. Gout. Respiratory disorder, unspecified. Kidney failure. SURGICAL HISTORY : None. ENCOUNTER: Initial ACUITY: 4 - 6 days PAIN SCORE: 9/10 LOCATION: Bilateral legs. TECHNIQUE: Venous ultrasound of the left and right leg was performed from the inguinal ligament to the proximal calf. Real-time, color Doppler and spectral tracing, compression and augmentation techniques were us ed. FINDINGS: RIGHT LEG: There is normal compressibility of the deep venous system from the inguinal region to the proximal ca lf. No echogenic clot is seen in the lumen of the common femoral, femoral, popliteal, and posterior tibial veins. There is a normal response of the venous system to proximal and distal augmentation an d respiration. LEFT LEG: There is normal compressibility of the deep venous system from the inguinal region to the proximal ca lf. No echogenic clot is seen in the lumen of the common femoral, femoral, popliteal, and posterior tibial veins. There is a normal response of the venous system to proximal and distal augmentation an d respiration. CONCLUSION: Negative for deep venous thrombosis. Fab Garcia MD FACR on October 11, 2016 at 18:26 Board Certified Radiologist. This report was verified electronically.
--- NOTE | 2016-10-11 18:36 | PD ---
HPI Chief Complaint: Edema Time Seen by Provider: 17:02 (Lowell Gibson MD) Travel History International Travel<30 days: No Contact w/Intl Traveler<30days: No Traveled to known affect area: No (Lowell Gibson MD) History of Present Illness HPI This is a 45-year-old male patient who was just recently discharged from [facility] 2 days ago where patient was admitted for acute renal failure that was the result of heat stroke rhabdomyalgia lysis and severe dehydration. Patient was admitted for 2 weeks and during that time he experienced analysis for an extended period of time to correct his renal dysfunction. Patient here today because since his discharge he has not been ambulating much and he noted extensive swelling of his legs and feet with a warm feeling of the lower extremities bilaterally. Patient denies recent trauma and he also denies chest pain or shortness of breath nausea vomiting lightheadedness and dizziness. (Lowell Gibson MD) PFSH Past Medical History Cardiovascular Problems: Yes Diminished Hearing: No Gout: Yes Genitourinary: No Hypertension: Yes Immune Disorder: No Musculoskeletal: No Neurologic: No Psychiatric: No Reproductive: No Respiratory: Yes Immunizations Current: No Tetanus Vaccination: < 5 Years Influenza Vaccination: Yes (Lowell Gibson MD) Social History Alcohol Use: No Tobacco Use: No Substance Use: No (Lowell Gibson MD) Allergies-Medications (Allergen,Severity, Reaction): Coded Allergies: No Known Allergies (Unverified , 10/11/16) Reported Meds & Prescriptions Reported Meds & Active Scripts Active Clindamycin (Clindamycin HCl) 300 Mg Cap 300 Mg PO Q6H 10 Days Lasix (Furosemide) 40 Mg Tab 40 Mg PO DAILY Ventolin Hfa 18 GM Inh (Albuterol Sulfate) 90 Mcg/Act Aer 2 Puff INH Q4H PRN Atrovent HFA 12.9 GM Inh (Ipratropium [place]) 17 Mcg/Act Aer 2 Puff INH Q6HR PRN Lopressor (Metoprolol Tartrate) 100 Mg Tab 100 Mg PO BID Hydralazine HCl 50 Mg Tablet 50 Mg PO Q8HR Catapres (Clonidine) 0.2 Mg Tab 0.2 Mg PO Q8H Pulmicort Respules (Budesonide) 0.5 Mg/2 Ml Neb 0.5 Mg NEB Q12HR NEB Norvasc (Amlodipine Besylate) 10 Mg Tab 10 Mg PO DAILY (Kacey Durán MD) Review of Systems ROS Limitations: Clinical Condition General / Constitutional: No: Fever, Chills, Weight Gain, Weight Loss, Other Eyes: No: Diploplia, Blurred Vision, Photophobia, Drainage, Redness, Foreign Body Sensation, Pain, Tearing, Blind Spots, Visual changes, Blindness, Other HENT: No: Headaches, Vertigo, Lightheadedness, Sore Throat, Rhinitis, Rhinorrhea, Congestion, Nosebleed, Neck Stiffness, Neck Pain, Masses, Gingival Bleeding, Dental Difficulties, Ear Discharge, Earache, Other Cardiovascular: No: Chest Pain or Discomfort, Palpitations, Irregular Rhythm, Tachycardia, Diaphoresis, Syncope, Dyspnea on exertion, Varicosities, Edema, Cyanosis, Varicosities, Phlebitis, Claudication, Other Respiratory: No: Cough, Shortness of Breath, Wheezing, Sneezing, Orthopnea, Hemoptysis, Stridor, Night Sweats, Pleuritic Pain, Other Gastrointestinal: No: Nausea, Vomiting, Diarrhea, Abdominal Pain, Hematemesis, Hematochezia, Constipation, Changes in Bowel Habits, Indigestion, Dysphagia, Loss of Appetite, Other Genitourinary: No: Urgency, Frequency, Dysuria, Nocturia, Hematuria, Decreased Urinary Output, Oliguria, Hesitancy, Dribbling, Incontinence, Pelvic Pain, Flank Pain, Dyspareunia, Discharge, Dysmenorrhea, Menorrhagia, Metorrhagia, Vaginal Bleeding, Other Musculoskeletal: Positive: Edema, Pain, No: Myalgias, Arthralgias, Limited ROM , Weakness, Cramping, Atrophy, Other Skin: No Rash, No Itching, No Dryness, No Lumps, No Hives, No Change in Pigmentation, No Change in nails, No Alopecia, No Lesions, No Breast Lumps, No Breast Tenderness, No Breast Swelling, No Other Neurologic: No: Weakness, Dizziness, Syncope, Focal Abnormalities, Coordination Problem, Tremor, Ataxia, Headache, Change in Mentation, Slurred Speech, Paresthesia, Incontinence, Seizures, Sensory Disturbance, Other Psychiatric: No: Anxiety, Depression, Suicidal Ideations, Disorder of Thought, Mood Disorder, Substance Abuse, Homicidal Ideation, Other Endocrine: No: Heat Intolerance, Cold Intolerance, Polyuria, Polydipsia, Other Hematologic/Lymphatic: No: Easy Bruising, Lymph Node Enlargement, Other (Lowell Gibson MD) Physical Exam Exam Limitations: Clinical Condition Narrative GENERAL: Obese male patient in no obvious distress SKIN: Marked erythema of the lower extremity with warmth to touch HEAD: Atraumatic. Normocephalic. EYES: Pupils equal and round and reactive . No scleral icterus. No injection or drainage. ENT: No nasal bleeding or discharge. Mucous membranes pink and moist. NECK: Trachea midline. No JVD. CARDIOVASCULAR: S1-S2 appreciated. Regular rate and rhythm. No murmur appreciated. Pulses normal throughout. RESPIRATORY: No accessory muscle use. Clear to auscultation. Breath sounds equal bilaterally. GASTROINTESTINAL: Abdomen soft, non-tender, nondistended. Hepatic and splenic margins not palpable. Bowel sounds normal. No peritoneal signs. MUSCULOSKELETAL: Gross 2-3+ pitting edema of the lower extremity right calf tenderness and swelling noted no obvious bony deformity on range of motion of the ankle and toes limited to the edematous state NEUROLOGICAL: Awake and alert and oriented 3.. No obvious cranial nerve deficits. Motor and sensory exam grossly within normal limits. Normal speech. No meningeal signs. PSYCHIATRIC: Appropriate mood and affect; insight and judgment normal. No suicidal or homicidal ideation. (Lowell Gibson MD) Data Data Orders Complete Blood Count With Diff (10/11/16 17:04) Comprehensive Metabolic Panel (10/11/16 17:05) B-Type Natriuretic Peptide (10/11/16 17:05) Chest, Single Ap (10/11/16 ) Troponin I (10/11/16 17:05) Ckmb (Isoenzyme) Profile (10/11/16 17:05) Creatine Kinase (Cpk) (10/11/16 17:05) Magnesium (Mg) (10/11/16 17:05) Prothrombin Time / Inr (Pt) (10/11/16 17:05) D-Dimer (10/11/16 17:05) Us Leg Venous Doppler Bilat (10/11/16 ) Lactic Acid (10/11/16 17:05) Morphine Inj (Morphine Inj) (10/11/16 17:15) Ondansetron Inj (Zofran Inj) (10/11/16 17:15) Blood Culture (10/11/16 17:05) Vancomycin Inj (Vancomycin Inj) (10/11/16 17:15) Furosemide Inj (Lasix Inj) (10/11/16 17:15) Electrocardiogram (10/11/16 ) CKMB (10/11/16 17:40) CKMB% (10/11/16 17:40) (Kacey Durán MD) MDM Medical Decision Making Medical Screen Exam Complete: Yes Emergency Medical Condition: Yes Medical Record Reviewed: Yes Interpretation(s) EKG shows sinus rhythm LVH nonpathologic Q waves in inferior leads poor R-wave progression Cell count normal with a mild left shift Urine 65 creatinine 5.2 CK total 5 74 ENT 106 Chest x-ray is negative for acute disease no signs of CHF troponin 1 negative Differential Diagnosis Differential diagnoses acute kidney injury acute renal failure nephrotic syndrome cellulitis peripheral edema Narrative Course This is a 45-year-old male patient was recently discharged from the hospital 2 days ago when he was admitted for acute renal failure and rhabdomyolysis. She returned again with complaints of gross swelling of the lower extremity and the feeling of leg pain and. Cell count is normal but there is a left shift and then this persistently elevated at 5.2 chest x-ray is negative for signs of CHF troponin is negative Patient given to be antibiotics to cover for cellulitis look cultures done she and given a dose of Lasix aced discussed with . Giana discussed case with nephrology with disposition. Care turned over to Dr. Gooden at shift change to discuss case with nephrology to disposition patient. (Lowell Gibson MD) Narrative Course Repair Order Clerk signing for document in draft. (Kacey Durán MD) Diagnosis Primary Impression: peripheral edema Additional Impressions: acute kidney injury suspected nephrotic syndrome lower extremity cellulitis Scripts Clindamycin 300 Mg [id number] Mg PO Q6H 10 Days Prov:Connor Gooden MD 10/11/16 Furosemide (Lasix)40 Mg Tab40 Mg PO DAILY #7 TAB Ref 0 Prov:Connor Gooden MD 10/11/16 Lowell Gibson MD Oct 11, 2016 18:36 Kacey Durán MD Oct 20, 2016 17:33 Neutrophils # (Auto) 6.6 TH/MM3 Lymphocytes # (Auto) 0.9 TH/MM3 Monocytes # (Auto) 0.9 TH/MM3 Eosinophils # (Auto) 0.1 TH/MM3 Basophils # (Auto) 0.1 TH/MM3 CBC Comment DIFF FINAL Differential Comment Prothrombin Time 10.7 SEC Prothromb Time International 1.0 RATIO Ratio D-Dimer Quantitative (PE/DVT) 1.78 MG/L FEU Sodium Level 138 MEQ/L Potassium Level 4.2 MEQ/L Chloride Level 101 MEQ/L Carbon Dioxide Level 27.6 MEQ/L Anion Gap 9 MEQ/L Blood Urea Nitrogen 65 MG/DL Creatinine 5.28 MG/DL Estimat Glomerular Filtration 12 ML/MIN Rate Random Glucose 87 MG/DL Lactic Acid Level 0.4 mmol/L Calcium Level 10.4 MG/DL Magnesium Level 1.4 MG/DL Total Bilirubin 0.7 MG/DL Aspartate Amino Transf 43 U/L (AST/SGOT) Alanine Aminotransferase 40 U/L (ALT/SGPT) Alkaline Phosphatase 114 U/L Total Creatine Kinase 574 U/L Creatine Kinase MB 16.6 NG/ML Creatine Kinase MB % 2.9 % Troponin I 0.05 NG/ML B-Type Natriuretic Peptide 106 PG/ML Total Protein 6.5 GM/DL Albumin 3.2 GM/DL [facility] Medical Decision Making Medical Screen Exam Complete: Yes Emergency Medical Condition: Yes Medical Record Reviewed: Yes Interpretation(s) EKG shows sinus rhythm LVH nonpathologic Q waves in inferior leads poor R-wave progression Cell count normal with a mild left shift Urine 65 creatinine 5.2 CK total 5 74 ENT 106 Chest x-ray is negative for acute disease no signs of CHF troponin 1 negative Differential Diagnosis Differential diagnoses acute kidney injury acute renal failure nephrotic syndrome cellulitis peripheral edema Narrative Course This is a 45-year-old male patient was recently discharged from the hospital 2 days ago when he was admitted for acute renal failure and rhabdomyolysis. She returned again with complaints of gross swelling of the lower extremity and the feeling of leg pain and. Cell count is normal but there is a left shift and then this persistently elevated at 5.2 chest x-ray is negative for signs of CHF troponin is negative Patient given to be antibiotics to cover for cellulitis look cultures done she and given a dose of Lasix aced discussed with . Giana discussed case with nephrology with disposition. Care turned over to Dr. Gooden at shift change to discuss case with nephrology to disposition patient. Diagnosis Primary Impression: peripheral edema Additional Impressions: acute kidney injury suspected nephrotic syndrome lower extremity cellulitis Lowell Gibson MD Oct 11, 2016 18:36
[2016-10-11 18:54] LABS: ALKALINE PHOSPHATASE 114 U/L (45-117); ALT (GPT) 40 U/L (12-78); ANION GAP 9 MEQ/L (5-15); AST (GOT) 43 U/L (15-37); BICARBONATE 27.6 MEQ/L (21.0-32.0); BLOOD UREA NITROGEN 65 MG/DL (7-18); CHLORIDE 101 MEQ/L (98-107); CREATINE KINASE 574 U/L (39-308); GLOMERULAR FILTRATION RATE 12 ML/MIN (>89); MAGNESIUM 1.4 MG/DL (1.5-2.5); POTASSIUM 4.2 MEQ/L (3.5-5.1); SODIUM (NA) 138 MEQ/L (136-145); TOTAL BILIRUBIN ADULT 0.7 MG/DL (0.2-1.0)
--- NOTE | 2016-10-11 19:11 | PD ---
HPI Chief Complaint: Edema Time Seen by Provider: 17:02 Travel History International Travel<30 days: No Contact w/Intl Traveler<30days: No Traveled to known affect area: No History of Present Illness HPI This is a 45-year-old [facility] Past Medical History Cardiovascular Problems: Yes Diminished Hearing: No Gout: Yes Genitourinary: No Hypertension: Yes Immune Disorder: No Musculoskeletal: No Neurologic: No Psychiatric: No Reproductive: No Respiratory: Yes Immunizations Current: No Tetanus Vaccination: < 5 Years Influenza Vaccination: Yes Social History Alcohol Use: No Tobacco Use: No Substance Use: No Allergies-Medications (Allergen,Severity, Reaction): Coded Allergies: No Known Allergies (Unverified , 10/11/16) Reported Meds & Prescriptions Reported Meds & Active Scripts Active Ventolin Hfa 18 GM Inh (Albuterol Sulfate) 90 Mcg/Act Aer 2 Puff INH Q4H PRN Atrovent HFA 12.9 GM Inh (Ipratropium [place]) 17 Mcg/Act Aer 2 Puff INH Q6HR PRN Lopressor (Metoprolol Tartrate) 100 Mg Tab 100 Mg PO BID Hydralazine HCl 50 Mg Tablet 50 Mg PO Q8HR Catapres (Clonidine) 0.2 Mg Tab 0.2 Mg PO Q8H Pulmicort Respules (Budesonide) 0.5 Mg/2 Ml Neb 0.5 Mg NEB Q12HR NEB Norvasc (Amlodipine Besylate) 10 Mg Tab 10 Mg PO DAILY Data Data Last Documented VS Vital Signs Date Time Temp Pulse Resp B/P Pulse Ox O2 Delivery O2 Flow Rate FiO2 10/11/16 16:58 99 Room Air 10/11/16 14:10 98.0 80 24 140/78 Orders Complete Blood Count With Diff (10/11/16 17:04) Comprehensive Metabolic Panel (10/11/16 17:05) B-Type Natriuretic Peptide (10/11/16 17:05) Chest, Single Ap (10/11/16 ) Troponin I (10/11/16 17:05) Ckmb (Isoenzyme) Profile (10/11/16 17:05) Creatine Kinase (Cpk) (10/11/16 17:05) Magnesium (Mg) (10/11/16 17:05) Prothrombin Time / Inr (Pt) (10/11/16 17:05) D-Dimer (10/11/16 17:05) Us Leg Venous Doppler Bilat (10/11/16 ) Lactic Acid (10/11/16 17:05) Morphine Inj (Morphine Inj) (10/11/16 17:15) Ondansetron Inj (Zofran Inj) (10/11/16 17:15) Blood Culture (10/11/16 17:05) Vancomycin Inj (Vancomycin Inj) (10/11/16 17:15) Furosemide Inj (Lasix Inj) (10/11/16 17:15) Electrocardiogram (10/11/16 ) CKMB (10/11/16 17:40) CKMB% (10/11/16 17:40) Labs Laboratory Tests Test 10/11/16 17:40 White Blood Count 8.5 TH/MM3 Red Blood Count 3.11 MIL/MM3 Hemoglobin 8.6 GM/DL Hematocrit 26.4 % Mean Corpuscular Volume 84.9 FL Mean Corpuscular Hemoglobin 27.7 PG Mean Corpuscular Hemoglobin 32.6 % Concent Red Cell Distribution Width 14.4 % Platelet Count 187 TH/MM3 Mean Platelet Volume 9.6 FL Neutrophils (%) (Auto) 78.1 % Lymphocytes (%) (Auto) 10.1 % Monocytes (%) (Auto) 10.0 % Eosinophils (%) (Auto) 1.0 % Basophils (%) (Auto) 0.8 % Neutrophils # (Auto) 6.6 TH/MM3 Lymphocytes # (Auto) 0.9 TH/MM3 Monocytes # (Auto) 0.9 TH/MM3 Eosinophils # (Auto) 0.1 TH/MM3 Basophils # (Auto) 0.1 TH/MM3 CBC Comment DIFF FINAL Differential Comment Prothrombin Time 10.7 SEC Prothromb Time International 1.0 RATIO Ratio D-Dimer Quantitative (PE/DVT) 1.78 MG/L FEU Sodium Level 138 MEQ/L Potassium Level 4.2 MEQ/L Chloride Level 101 MEQ/L Carbon Dioxide Level 27.6 MEQ/L Anion Gap 9 MEQ/L Blood Urea Nitrogen 65 MG/DL Creatinine 5.28 MG/DL Estimat Glomerular Filtration 12 ML/MIN Rate Random Glucose 87 MG/DL Lactic Acid Level 0.4 mmol/L Calcium Level 10.4 MG/DL Magnesium Level 1.4 MG/DL Total Bilirubin 0.7 MG/DL Aspartate Amino Transf 43 U/L (AST/SGOT) Alanine Aminotransferase 40 U/L (ALT/SGPT) Alkaline Phosphatase 114 U/L Total Creatine Kinase 574 U/L Creatine Kinase MB 16.6 NG/ML Creatine Kinase MB % 2.9 % Troponin I 0.05 NG/ML Total Protein 6.5 GM/DL Albumin 3.2 GM/DL Lowell Gibson MD Oct 11, 2016 19:11
[2016-10-11 19:23] LABS: CKMB 16.6 NG/ML (0.5-3.6)
[2016-10-11] MEDS ORDERED: CLIN1CAP6 PO (21:13)
[2016-10-11] MEDS ORDERED: FURO1TAB60 PO (21:13)
--- NOTE | 2016-10-11 21:13 | PD ---
Data Data Last Documented VS Vital Signs Date Time Temp Pulse Resp B/P Pulse Ox O2 Delivery O2 Flow Rate FiO2 10/11/16 16:58 99 Room Air 10/11/16 14:10 98.0 80 24 140/78 Orders Complete Blood Count With Diff (10/11/16 17:04) Comprehensive Metabolic Panel (10/11/16 17:05) B-Type Natriuretic Peptide (10/11/16 17:05) Chest, Single Ap (10/11/16 ) Troponin I (10/11/16 17:05) Ckmb (Isoenzyme) Profile (10/11/16 17:05) Creatine Kinase (Cpk) (10/11/16 17:05) Magnesium (Mg) (10/11/16 17:05) Prothrombin Time / Inr (Pt) (10/11/16 17:05) D-Dimer (10/11/16 17:05) Us Leg Venous Doppler Bilat (10/11/16 ) Lactic Acid (10/11/16 17:05) Morphine Inj (Morphine Inj) (10/11/16 17:15) Ondansetron Inj (Zofran Inj) (10/11/16 17:15) Blood Culture (10/11/16 17:05) Vancomycin Inj (Vancomycin Inj) (10/11/16 17:15) Furosemide Inj (Lasix Inj) (10/11/16 17:15) Electrocardiogram (10/11/16 ) CKMB (10/11/16 17:40) CKMB% (10/11/16 17:40) Labs Laboratory Tests Test 10/11/16 17:40 White Blood Count 8.5 TH/MM3 Red Blood Count 3.11 MIL/MM3 Hemoglobin 8.6 GM/DL Hematocrit 26.4 % Mean Corpuscular Volume 84.9 FL Mean Corpuscular Hemoglobin 27.7 PG Mean Corpuscular Hemoglobin 32.6 % Concent Red Cell Distribution Width 14.4 % Platelet Count 187 TH/MM3 Mean Platelet Volume 9.6 FL Neutrophils (%) (Auto) 78.1 % Lymphocytes (%) (Auto) 10.1 % Monocytes (%) (Auto) 10.0 % Eosinophils (%) (Auto) 1.0 % Basophils (%) (Auto) 0.8 % Neutrophils # (Auto) 6.6 TH/MM3 Lymphocytes # (Auto) 0.9 TH/MM3 Monocytes # (Auto) 0.9 TH/MM3 Eosinophils # (Auto) 0.1 TH/MM3 Basophils # (Auto) 0.1 TH/MM3 CBC Comment DIFF FINAL Differential Comment Prothrombin Time 10.7 SEC Prothromb Time International 1.0 RATIO Ratio D-Dimer Quantitative (PE/DVT) 1.78 MG/L FEU Sodium Level 138 MEQ/L Potassium Level 4.2 MEQ/L Chloride Level 101 MEQ/L Carbon Dioxide Level 27.6 MEQ/L Anion Gap 9 MEQ/L Blood Urea Nitrogen 65 MG/DL Creatinine 5.28 MG/DL Estimat Glomerular Filtration 12 ML/MIN Rate Random Glucose 87 MG/DL Lactic Acid Level 0.4 mmol/L Calcium Level 10.4 MG/DL Magnesium Level 1.4 MG/DL Total Bilirubin 0.7 MG/DL Aspartate Amino Transf 43 U/L (AST/SGOT) Alanine Aminotransferase 40 U/L (ALT/SGPT) Alkaline Phosphatase 114 U/L Total Creatine Kinase 574 U/L Creatine Kinase MB 16.6 NG/ML Creatine Kinase MB % 2.9 % Troponin I 0.05 NG/ML B-Type Natriuretic Peptide 106 PG/ML Total Protein 6.5 GM/DL Albumin 3.2 GM/DL MDM Supervised Visit with CHARLES: Yes Narrative Course Is a 45-year-old man with recent history of acute tubular necrosis, rhabdomyolysis, renal failure, discharge from hospital 2 days ago. Presents back worsening pain redness and swelling in his legs. He was initially evaluated by Dr. Gibson. Disposition was pending when I assumed care of the patient. Would like to avoid readmitting the patient to hospital if it is not necessary. I spoke with Dr. Anderson, the patient's blocker and cutter contact lens. Is okay with us starting a short course of diuretic. The amount of erythema redness is more mild and I think more related to the edema than to underlying infection. There is no evidence of DVT. We'll recommend close outpatient follow-up with Dr. Anderson. Diagnosis Primary Impression: peripheral edema Additional Impressions: acute kidney injury suspected nephrotic syndrome lower extremity cellulitis Additional Instruction: Take Lasix daily to reduce extra fluid. Take clindamycin as prescribed. Follow-up with Dr. Anderson next week as planned. Return to the emergency department for any new or worsening symptoms. Med/Other Pt SpecificInfo: Prescription(s) given Scripts Clindamycin 300 Mg [id number] Mg PO Q6H 10 Days Prov:Connor Gooden MD 10/11/16 Furosemide (Lasix)40 Mg Tab40 Mg PO DAILY #7 TAB Ref 0 Prov:Connor Gooden MD 10/11/16 Disposition: 01 DISCHARGE HOME Condition: Stable Connor Gooden MD Oct 11, 2016 21:13
[2016-10-11 21:29] VITALS: BP 124/78
--- NOTE | 2016-10-11 22:24 | EKG ---
Date Performed: 10/11/2016 Time Performed: 18:43:53 PTAGE: 45 years EKG: Sinus rhythm NORMAL ECG PREVIOUS TRACING : 09/25/2016 09.31 No significant change from previous tracing noted. DOCTOR: Hiram Hitchcock Interpretating Date/Time 10/11/2016 22:24:05
== END 2016-10-11 21:30 | disposition home or self-care (01) ==
LOC: NEPC 14:08
DX: R60.9 Edema, unspecified (principal); L03.116 Cellulitis of left lower limb; L03.115 Cellulitis of right lower limb; N17.9 Acute kidney failure, unspecified; M62.82 Rhabdomyolysis; M10.9 Gout, unspecified; I10 Essential (primary) hypertension; Z79.899 Other long term (current) drug therapy
CPT/HCPCS: 71010; 80053; 82550; 82552; 83605; 83735; 83880; 84484; 85025; 85379; 85610; 87040; 93005; 93970; 96374; 96375; 99285; J1940; J2270; J2405; J3370; J7050